=== PATIENT | male | born 1955 | race American Indian/Alaskan Native ===

== ENCOUNTER 2016-10-18 12:30 | Emergency (ER) | payer MEDICAID ==
[2016-10-18 12:56] VITALS: BP 123/78
[2016-10-18 13:15] LABS: Bilirubin,Urine NEG (Negative); Blood,Urine SM (Negative); Ketones,Urine NEG (Negative); Leukocyte Esterase,Urine NEG (Negative); Nitrite,Urine NEG (Negative); Protein,Urine <15 mg/dL mg/dL (Negative)
[2016-10-18 13:28] LABS: Basophils % (Auto) 0.7 % (0.0-1.8); Eosinophils % (Auto) 3.4 % (0.0-4.3); Hematocrit 42.6 % (35.5-45.6); Hemoglobin 14.2 gm/dl (11.8-15.2); Mean Corpuscular HGB Conc 33 % (32-34); Mean Corpuscular Hemoglobin 34 pg (28-32); Mean Corpuscular Volume 104 fl (84-94); Platelet Count 104 K/mm3 (140-440); Red Blood Count 4.11 M/mm3 (3.65-5.03); Red Cell Distribution Width 15.1 % (13.2-15.2); White Blood Count 4.5 K/mm3 (4.5-11.0)
[2016-10-18 13:38] LABS: Alanine Aminotransferase 30 units/L (7-56); Albumin 3.1 g/dL (3.9-5); Albumin/Globulin Ratio 0.6 %; Alkaline Phosphatase 192 units/L (35-129); Anion Gap 15 mmol/L; BUN/Creatinine Ratio 6.66; Bilirubin,Total 2.4 mg/dL (0.1-1.2); Blood Urea Nitrogen 6 mg/dL (9-20); Calcium 8.1 mg/dL (8.4-10.2); Carbon Dioxide 24 mmol/L (22-30); Chloride 98.8 mmol/L (98-107); Glucose 157 mg/dL (75-100); Lipase 49 units/L (13-60); Potassium 4.3 mmol/L (3.6-5.0); Sodium 133 mmol/L (137-145); Total Protein 8.5 g/dL (6.3-8.2)
== END 2016-10-18 16:13 | disposition left against medical advice (07) ==
LOC: ED 12:30
DX: R10.33 Periumbilical pain (principal); F20.9 Schizophrenia, unspecified; Z53.21 Procedure and treatment not carried out due to patient leaving prior to being seen by health care provider
CPT/HCPCS: 36415; 80053; 81001; 83690; 85025

== ENCOUNTER 2016-10-19 11:45 | Emergency (ER) | payer MEDICAID ==
[2016-10-19 12:46] VITALS: BP 143/92
--- NOTE | 2016-10-21 15:07 | ED Elopement Review ---
ED Pt Elopement review - Call Back decision Pt Call Back Decision: No action required
== END 2016-10-19 19:11 | disposition left against medical advice (07) ==
LOC: ED 11:45
DX: R10.9 Unspecified abdominal pain (principal); K46.9 Unspecified abdominal hernia without obstruction or gangrene; K74.60 Unspecified cirrhosis of liver; Z53.21 Procedure and treatment not carried out due to patient leaving prior to being seen by health care provider

== ENCOUNTER 2016-11-25 11:18 | Emergency (ER) | payer MEDICAID ==
[2016-11-25 12:03] VITALS: BP 130/77
--- NOTE | 2016-11-25 12:11 | Emergency Department Report ---
Chief Complaint: Recheck/Abnormal Lab/Rx Stated Complaint: FLUID IN ABD Time Seen by Provider: 11/25/16 12:05 - HPI History of Present Illness: 61-year-old -[place] male with a past medical history of cirrhosis of the liver history of hepatitis C and schizophrenia comes in today for complaint of fluid on my stomach. Patient reports that he feels like his weight has gain and feels bloated. He reports worse with eating. And worse with taking this medication. She denies chest pain or shortness of breathing. - Exam Vital Signs: Vital Signs 11/25/16 11:56 Temperature 98.1 F Pulse Rate 73 Respiratory 18 Rate Blood Pressure 130/77 O2 Sat by Pulse 99 Oximetry Physical Exam: Patient's alert and oriented 3 cardiovascular S1-S2 regular rate and rhythm respiratory clear to osseous bilateral abdomen distended and firm bowel sounds present lower leg no edema appreciated MSE screening note: Focused history and physical exam performed. Due to findings the following was ordered: CBC CMP UAs been ordered. Patient given I with a Main ER ED Disposition for MSE Condition: Stable
[2016-11-25 13:41] LABS: Basophils % (Auto) 0.5 % (0.0-1.8); Eosinophils % (Auto) 4.4 % (0.0-4.3); Hematocrit 44.3 % (35.5-45.6); Hemoglobin 14.5 gm/dl (11.8-15.2); Mean Corpuscular HGB Conc 33 % (32-34); Mean Corpuscular Hemoglobin 34 pg (28-32); Mean Corpuscular Volume 103 fl (84-94); Red Blood Count 4.29 M/mm3 (3.65-5.03); Red Cell Distribution Width 15.5 % (13.2-15.2); White Blood Count 4.3 K/mm3 (4.5-11.0)
[2016-11-25 13:42] LABS: Platelet Count 90 K/mm3 (140-440)
[2016-11-25 14:02] LABS: Alanine Aminotransferase 33 units/L (7-56); Albumin 2.8 g/dL (3.9-5); Albumin/Globulin Ratio 0.5 %; Alkaline Phosphatase 202 units/L (35-129); Anion Gap 13 mmol/L; BUN/Creatinine Ratio 5.55; Bilirubin,Total 2.8 mg/dL (0.1-1.2); Blood Urea Nitrogen 5 mg/dL (9-20); Calcium 8.3 mg/dL (8.4-10.2); Carbon Dioxide 23 mmol/L (22-30); Chloride 102.3 mmol/L (98-107); Glucose 219 mg/dL (75-100); Potassium 4.7 mmol/L (3.6-5.0); Sodium 134 mmol/L (137-145); Total Protein 7.9 g/dL (6.3-8.2)
--- NOTE | 2016-11-27 19:40 | ED Elopement Review ---
ED Pt Elopement review - Results review Lab results: Laboratory Tests 11/25/16 11/25/16 11/25/16 13:28 13:28 13:28 WBC 4.3 L RBC 4.29 Hgb 14.5 Hct 44.3 MCV 103 H MCH 34 H MCHC 33 RDW 15.5 H Plt Count 90 L Lymph % (Auto) 30.1 [place] % (Auto) 13.1 H Eos % (Auto) 4.4 H Baso % (Auto) 0.5 Lymph # 1.3 [place] # 0.6 Eos # 0.2 Baso # 0.0 Seg Neutrophils % 51.9 Seg Neutrophils # 2.2 Sodium 134 L Potassium 4.7 Chloride 102.3 Carbon Dioxide 23 Anion Gap 13 BUN 5 L Creatinine 0.9 Estimated GFR > 60 BUN/Creatinine Ratio 5.55 Glucose 219 H Calcium 8.3 L Total Bilirubin 2.8 H AST 63 H ALT 33 Alkaline Phosphatase 202 H Total Protein 7.9 Albumin 2.8 L Albumin/Globulin Ratio 0.5 Lipase 35 - Call Back decision Pt Call Back Decision: No action required
== END 2016-11-25 20:45 | disposition left against medical advice (07) ==
LOC: ED 11:18
DX: R14.0 Abdominal distension (gaseous) (principal); F20.9 Schizophrenia, unspecified
CPT/HCPCS: 36415; 80053; 83690; 85025

== ENCOUNTER 2017-06-12 16:37 | Inpatient (IN) | payer MEDICAID ==
[2017-06-12 17:33] LABS: Hematocrit 41.4 % (35.5-45.6); Hemoglobin 14.2 gm/dl (11.8-15.2); Mean Corpuscular HGB Conc 34 % (32-34); Mean Corpuscular Hemoglobin 36 pg (28-32); Mean Corpuscular Volume 104 fl (84-94); Red Blood Count 3.97 M/mm3 (3.65-5.03); Red Cell Distribution Width 14.2 % (13.2-15.2); White Blood Count 4.4 K/mm3 (4.5-11.0)
[2017-06-12 17:40] LABS: Anion Gap 14 mmol/L; Blood Urea Nitrogen 7 mg/dL (9-20); Calcium 8.7 mg/dL (8.4-10.2); Carbon Dioxide 25 mmol/L (22-30); Chloride 103.4 mmol/L (98-107); Glucose 105 mg/dL (75-100); Platelet Count 81 K/mm3 (140-440); Potassium 5.3 mmol/L (3.6-5.0); Sodium 137 mmol/L (137-145)
[2017-06-12 18:19] LABS: Basophils % (Manual) 0 % (0.0-1.8); Blastocytes % (Manual) 0 %
[2017-06-12 18:21] LABS: Macrocytosis 1+
[2017-06-12 18:22] LABS: Diff Status Complete; Large Platelets 1+; Platelet Estimate Consistent w Auto
[2017-06-12] MEDS ORDERED: MORPHINE IV ONE (21:30)
[2017-06-12] MEDS ORDERED: ZOFRAN IV ONE (21:30)
--- NOTE | 2017-06-12 21:34 | Emergency Department Report ---
ED Chest Pain HPI - General Chief Complaint: Chest Pain Stated Complaint: CP/BACK PAIN Time Seen by Provider: 06/12/17 20:49 Source: patient, old records reviewed Mode of arrival: Ambulatory Limitations: No Limitations - History of Present Illness Initial Comments: 62-year-old male with a past medical history of cirrhosis, hepatitis C, schizophrenia, chronic umbilical hernia, hypertension, and GERD presents to the hospital complaining of left-sided chest pain that started yesterday but worsened at 3 AM. Pain is at the left jaw and radiates to left upper chest. Described as a constant sharp pain that fluctuates in intensity but worse to palpation. Pain is rated 9/10 in intensity. Denies associated symptoms including nausea, vomiting, diaphoresis, or shortness of breath. Patient denies a family history CAD, tobacco use, or elevated cholesterol. No previous history of stress test in the past. No reports of heavy lifting or straining. Patient also complains of bilateral flank pain and has a chronic umbilical hernia. - Related Data Home Medications Medication Instructions Recorded Confirmed Last Taken Esomeprazole Magnesium [Nexium] 20 mg PO BID 11/26/13 03/23/15 Unknown Nadolol [Corgard] 20 mg PO QDAY 11/26/13 03/23/15 Unknown Previous Rx's Medication Instructions Recorded Last Taken Type Spironolactone [Aldactone] 25 mg PO DAILY #30 tablet 03/23/15 Unknown Rx Allergies Allergy/AdvReac Type Severity Reaction Status Date / Time No Known Allergies Allergy Verified 11/25/16 12:03 Heart Score - HEART Score History: Slightly suspicious EKG: Normal Age: 45-65 Risk factors: 1-2 risk factors Troponin: < normal limit HEART Score: 2 ED Review of Systems ROS: Stated complaint: CP/BACK PAIN Other details as noted in HPI Comment: All other systems reviewed and negative Other: Constitutional: No fevers chills or weight loss Eyes: No eye pain visual changes or discharge ENT: No ear pain or throat pain Neck: Denies pain Respiratory: Denies cough wheezing shortness of breath at rest shortness of breath or exertion, orthopnea or PND Cardiovascular: Denies chest pain, palpitations, syncope Endocrine: Denies excessive sweating, intolerance to cold, increased thirst GI: Denies abdominal pain, nausea, vomiting, diarrhea, constipation, melena hematochezia : Denies dysuria, urinary frequency, or urgency Musculoskeletal: Denies back pain, joint swelling Skin: Denies rash, lesions, erythema Neurologic: Denies headache, numbness, weakness Psychiatric: Denies suicidal ideation, hallucinations Hematological/lymphatic: Denies easy bruising, lymphadenopathy ED Past Medical Hx - Past Medical History Previous Medical History?: Yes Hx Hypertension: Yes Hx GERD: Yes Hx Liver Disease: Yes (cirrhosis, hx of hep C) Hx Psychiatric Treatment: Yes (schizophrenia) Additional medical history: HERNIA - Surgical History Past Surgical History?: Yes Additional Surgical History: Right arm surgery 2013 - Social History Smoking Status: Former Smoker Substance Use Type: Prescribed - Medications Home Medications: Home Medications Medication Instructions Recorded Confirmed Last Taken Type Esomeprazole Magnesium [Nexium] 20 mg PO BID 11/26/13 03/23/15 Unknown History Nadolol [Corgard] 20 mg PO QDAY 11/26/13 03/23/15 Unknown History Spironolactone [Aldactone] 25 mg PO DAILY #30 tablet 03/23/15 Unknown Rx ED Physical Exam - General Limitations: No Limitations - Other Other exam information: General: No limitations, patient is alert in no acute distress Head exam: Atraumatic, normocephalic Eyes exam: Normal appearance, pupils equal reactive to light, extraocular movements intact ENT: Moist mucous membrane, normal oropharynx Neck exam: Normal inspection, full range of motion, no meningismus, mild left- sided sternocleidomastoid tenderness Respiratory exam: Clear to auscultation bilateral, no wheezes, rales, crackles Cardiovascular: Normal rate and rhythm, normal heart sounds, mild left upper chest wall tenderness Abdomen: Soft, nondistended, large reducible umbilical hernia nontender Extremity: Full range of motion normal inspection no deformity, no calf tenderness or edema Back: Normal Inspection, full range of motion, no tenderness Neurologic: Alert, oriented x3, cranial nerves intact, no motor or sensory deficit Psychiatric: normal affect, normal mood Skin: Warm, dry, intact ED Course Vital Signs 06/12/17 06/12/17 16:51 21:00 Temperature 98.6 F Pulse Rate 61 61 Respiratory 18 19 Rate Blood Pressure 146/78 Blood Pressure 139/81 [Left] O2 Sat by Pulse 98 100 Oximetry - Reevaluation(s) Reevaluation #1: 06/12/17 21:49 Morphine and Zofran provided for pain BLANCA score - Blanca Score Age > 65: (0) No Aspirin use within the Past 7 Days: (0) No 3 or more CAD Risk Factors: (1) Yes 2 or more Angina events in past 24 hrs: (0) No Known CAD with more than 50% Stenosis: (0) No Elevated Cardiac Markers: (0) No ST Deviation Greater than 0.5mm: (0) No BLANCA Score: 1 ED Medical Decision Making - Lab Data Result diagrams: 06/12/17 17:04 06/12/17 17:04 Lab Results 06/12/17 06/12/17 06/12/17 Range/Units 17:04 17:04 18:07 WBC 4.4 L (4.5-11.0) K/mm3 RBC 3.97 (3.65-5.03) M/mm3 Hgb 14.2 (11.8-15.2) gm/dl Hct 41.4 (35.5-45.6) % MCV 104 H (84-94) fl MCH 36 H (28-32) pg MCHC 34 (32-34) % RDW 14.2 (13.2-15.2) % Plt Count 81 L (140-440) K/mm3 [place] % (Auto) Calender Worker Helper Add Manual Diff Complete Total Counted 100 Seg Neuts % (Manual) 50.0 (40.0-70.0) % Band Neutrophils % 0 % Lymphocytes % (Manual) 34.0 (13.4-35.0) % Reactive Lymphs % (Man) 0 % Monocytes % (Manual) 9.0 H (0.0-7.3) % Eosinophils % (Manual) 7.0 H (0.0-4.3) % Basophils % (Manual) 0 (0.0-1.8) % Metamyelocytes % 0 % Myelocytes % 0 % Promyelocytes % 0 % Blast Cells % 0 % Nucleated RBC % Not Reportable Seg Neutrophils # Man 2.2 (1.8-7.7) K/mm3 Band Neutrophils # 0.0 K/mm3 Lymphocytes # (Manual) 1.5 (1.2-5.4) K/mm3 Abs React Lymphs (Man) 0.0 K/mm3 Monocytes # (Manual) 0.4 (0.0-0.8) K/mm3 Eosinophils # (Manual) 0.3 (0.0-0.4) K/mm3 Basophils # (Manual) 0.0 (0.0-0.1) K/mm3 Metamyelocytes # 0.0 K/mm3 Myelocytes # 0.0 K/mm3 Promyelocytes # 0.0 K/mm3 Blast Cells # 0.0 K/mm3 WBC Morphology Not Reportable Hypersegmented Neuts Not Reportable Hyposegmented Neuts Not Reportable Hypogranular Neuts Not Reportable Smudge Cells Not Reportable Toxic Granulation Not Reportable Toxic Vacuolation Not Reportable Dohle Bodies Not Reportable Pelger-Huet Anomaly Not Reportable [place] Rods Not Reportable Platelet Estimate Consistent w auto Clumped Platelets Not Reportable Plt Clumps, EDTA Not Reportable Large Platelets 1+ Giant Platelets Not Reportable Platelet Satelliting Not Reportable Plt Morphology Comment Not Reportable RBC Morphology Not Reportable Dimorphic RBCs Not Reportable Polychromasia Not Reportable Hypochromasia Not Reportable Poikilocytosis Not Reportable Anisocytosis Not Reportable Microcytosis Not Reportable Macrocytosis 1+ Spherocytes Not Reportable Pappenheimer Bodies Not Reportable Sickle Cells Not Reportable Target Cells Not Reportable Tear Drop Cells Not Reportable Ovalocytes Not Reportable Helmet Cells Not Reportable Rios-Ririe Bodies Not Reportable [place] Rings Not Reportable [place] Cells Not Reportable Bite Cells Not Reportable Crenated Cell Not Reportable Elliptocytes Not Reportable Acanthocytes (Spur) Not Reportable Rouleaux Not Reportable Hemoglobin C Crystals Not Reportable Schistocytes Not Reportable Malaria parasites Not Reportable Khari Bodies Not Reportable Hem Pathologist Commnt No Sodium 137 (137-145) mmol/L Potassium 5.3 H (3.6-5.0) mmol/L Chloride 103.4 (98-107) mmol/L Carbon Dioxide 25 (22-30) mmol/L Anion Gap 14 mmol/L BUN 7 L (9-20) mg/dL Creatinine 0.7 L (0.8-1.5) mg/dL Estimated GFR > 60 ml/min BUN/Creatinine Ratio 10.00 % Glucose 105 H (75-100) mg/dL Calcium 8.7 (8.4-10.2) mg/dL Troponin T < 0.010 < 0.010 (0.00-0.029) ng/mL - EKG Data -: EKG Interpreted by Pr (sinus rate [address] elevation or T inversion) - EKG Data When compared to previous EKG there are: no significant change - Medical Decision Making Plan to admit patient to the hospital for cardiac workup suspect her pain is musculoskeletal origin. Patient has never had any formal cardiac evaluation. - Differential Diagnosis MSK chest pain, ID, unstable angina Critical Care Time: No Critical care attestation.: If time is entered above; I have spent that time in minutes in the direct care of this critically ill patient, excluding procedure time. ED Disposition Clinical Impression: Chest pain, Umbilical hernia, HTN (hypertension), Cirrhosis, Schizophrenia, Thrombocytopenia Disposition: DC09 OP ADMIT IP TO THIS HOSP Is pt being admited?: Yes Condition: Stable Time of Disposition: 21:34
[2017-06-12] MEDS ORDERED: KIONEX PO ONE ×2 (21:48→22:08)
[2017-06-12] MEDS ORDERED: ZOFRAN IV PRN (22:09)
[2017-06-12] MEDS ORDERED: TYLENOL PO PRN (22:09)
[2017-06-12] MEDS ORDERED: MILK OF MAGNESIA PO PRN (22:09)
[2017-06-12] MEDS ORDERED: DULCOLAX PR PRN (22:09)
[2017-06-12 22:11] LABS: INR 1.49 (0.87-1.13)
[2017-06-12] MEDS ORDERED: SODIUM CHLORIDE FLUSH SYRINGE 10 ML IV PRN (22:11)
[2017-06-12] MEDS ORDERED: BABY ASPIRIN PO STA (22:11)
[2017-06-12] MEDS ORDERED: NITROSTAT SL PRN (22:11)
--- NOTE | 2017-06-12 22:11 | History and Physical Report ---
History of Present Illness Date of examination: 06/12/17 Date of admission: 06/12/17 Chief complaint: Chest pain History of present illness: Patient is 60-year-old with history of hypertension, cirrhosis of the liver due to hepatitis C, schizophrenia. He presents with chest pain. Chest pain for 1 day duration. Chest pain is left-sided, 9 out of 10 in intensity. Chest pain is a sharp pain radiates to neck. He denies any shortness of breath. No headache, no nausea, or vomiting. In emergency department initial troponin was normal and patient was given aspirin. In addition he had hyperkalemia with a potassium of 5.3. For this he was given Kayexalate. He is being admitted to telemetry for management of hyperkalemia and to rule out acute coronary syndrome . Past History Past Medical History: GERD, hepatitis (hepatitis C), hypertension, other ( cirrhosis of the liver due to hepatitis C, schizophrenia, umbilical hernia) Past Surgical History: Other (right arm surgery) Social history: single, full code. denies: smoking, alcohol abuse Family history: hypertension Medications and Allergies Allergies Allergy/AdvReac Type Severity Reaction Status Date / Time No Known Allergies Allergy Verified 11/25/16 12:03 Home Medications Medication Instructions Recorded Confirmed Last Taken Type Esomeprazole Magnesium [Nexium] 20 mg PO BID 11/26/13 03/23/15 Unknown History Nadolol [Corgard] 20 mg PO QDAY 11/26/13 03/23/15 Unknown History Spironolactone [Aldactone] 25 mg PO DAILY #30 tablet 03/23/15 Unknown Rx Active Meds: Active Medications Acetaminophen (Tylenol) 650 mg PO Q4H PRN PRN Reason: Pain MILD(1-3)/Fever >100.5/TAYLOR Bisacodyl (Dulcolax) 10 mg SD QDAY PRN PRN Reason: Constipation unrelieved by MOM Heparin Sodium (Porcine) (Heparin) 5,000 unit SUB-Q Q8HR KYLAH Magnesium Hydroxide (Milk Of Magnesia) 30 ml PO Q4H PRN PRN Reason: Constipation Ondansetron HCl (Zofran) 4 mg IV Q6H PRN PRN Reason: nausea or vomiting Review of Systems All systems: negative (no fever, no cough, no headache, no nausea,no vomiting. All other systems reviewed and are negative) Exam - Physical Exam Narrative exam: Gen Appearance: Not in acute distress,obese HEENT: normocephalic, atraumatic Neck: supple, no JVD Lungs: Clear to auscultation, bilaterally, no rales, no wheeze Heart: S1 and S2 regular, no murmurs,no rubs or gallop, Abdomen: Soft , non tender, non distended, normal bowel sounds,large umbilical hernia - reducible. Extremity: No edema, no clubbing or cyanosis, Neuro : Awake,alert, oriented x 3, moves all extremities - Constitutional Vitals: Temp Pulse Resp BP Pulse Ox 98.6 F 61 19 139/81 100 06/12/17 16:51 06/12/17 21:00 06/12/17 21:54 06/12/17 21:00 06/12/17 21:00 Results - Labs CBC & Chem 7: 06/12/17 17:04 06/12/17 17:04 Labs: Abnormal lab results 06/12/17 06/12/17 06/12/17 Range/Units 17:04 17:04 21:47 WBC 4.4 L (4.5-11.0) K/mm3 MCV 104 H (84-94) fl MCH 36 H (28-32) pg Plt Count 81 L (140-440) K/mm3 Monocytes % (Manual) 9.0 H (0.0-7.3) % Eosinophils % (Manual) 7.0 H (0.0-4.3) % PT 18.8 H (12.2-14.9) Sec. INR 1.49 H (0.87-1.13) Potassium 5.3 H (3.6-5.0) mmol/L BUN 7 L (9-20) mg/dL Creatinine 0.7 L (0.8-1.5) mg/dL Glucose 105 H (75-100) mg/dL Assessment and Plan Chest pain. To rule out acute coronary syndrome. Admit to telemetry. Obtain Serial Troponin . Will obtain stress test in the morning. Aspirin given in ED. Hyperkalemia with potassium of 5.3. Give Kayexalate 30 g by mouth 1 dose and recheck potassium level in the morning. He is supposed to be on Aldactone states he has not taken his medications in about 3 months. hold Aldactone because of hyperkalemia Cirrhosis of liver due to Hepatitis C. Hold Nadolol because of bradycardia. Abnormal LFTs. Hepatitis C, chronic. Coagulopathy with INR 1.49 due to cirrhosis of liver. Hypertension. BP stable. will monitor. GERD . give Protonix. Shizophrenia Chronic umbilical hernia. This is reducible. DVT prophylaxis with SCDs only because of thrombocytopenia. Thrombocytopenia due to cirrhosis. Plty count 81. Will monitor. Full CODE STATUS
[2017-06-12 22:12] LABS: Partial Thromboplastin Time 38.3 Sec. (24.2-36.6)
[2017-06-12 22:25] LABS: Alanine Aminotransferase 46 units/L (7-56); Albumin 2.8 g/dL (3.9-5); Albumin/Globulin Ratio 0.7 %; Alkaline Phosphatase 193 units/L (35-129); Bilirubin,Direct 0.7 mg/dL (0-0.2); Total Protein 7.1 g/dL (6.3-8.2)
[2017-06-12] MEDS ORDERED: ASPIRIN ONE (22:52)
[2017-06-12] MEDS ORDERED: KIONEX ONE (22:52)
[2017-06-12] MEDS ORDERED: BABY ASPIRIN ONE (22:55)
[2017-06-12] MEDS ORDERED: PROTONIX PO SCH (23:00)
[2017-06-13] MEDS ORDERED: HEPARIN SUB-Q SCH (06:00)
[2017-06-13 06:51] LABS: Basophils % (Auto) 0.5 % (0.0-1.8); Eosinophils % (Auto) 2.4 % (0.0-4.3); Hematocrit 40.7 % (35.5-45.6); Hemoglobin 13.8 gm/dl (11.8-15.2); Mean Corpuscular HGB Conc 34 % (32-34); Mean Corpuscular Hemoglobin 35 pg (28-32); Mean Corpuscular Volume 105 fl (84-94); Red Blood Count 3.89 M/mm3 (3.65-5.03); White Blood Count 3.9 K/mm3 (4.5-11.0)
[2017-06-13 06:57] LABS: Platelet Count 71 K/mm3 (140-440)
[2017-06-13 07:15] LABS: Anion Gap 14 mmol/L; BUN/Creatinine Ratio 8.57; Blood Urea Nitrogen 6 mg/dL (9-20); Calcium 8.1 mg/dL (8.4-10.2); Carbon Dioxide 24 mmol/L (22-30); Chloride 106.6 mmol/L (98-107); Glucose 117 mg/dL (75-100); Potassium 4.5 mmol/L (3.6-5.0); Sodium 140 mmol/L (137-145)
--- NOTE | 2017-06-13 08:30 | XRay Report ---
FINAL REPORT EXAM: XR CHEST 1V AP HISTORY: cp TECHNIQUE: AP portable view(s) of the chest obtained. PRIORS: None. FINDINGS: No mediastinal shift. Cardiac silhouette is not enlarged. No pneumothorax, effusion, or focal pulmonary opacity identified. No acute skeletal findings. IMPRESSION: No acute pulmonary finding identified.
[2017-06-13] MEDS ORDERED: ECOTRIN PO SCH (10:00)
[2017-06-13] MEDS ORDERED: PROTONIX PO SCH (10:00)
--- NOTE | 2017-06-13 11:12 | Query- Nutrition ---
Tyrese Corral Wise Date:___06/13/2017 Balance Wheel Motion Inspector/CDS:___Roxie Phone#:___[phone] Exercise your independent professional judgment when responding to query. Questions asked do not imply a particular answer is desired or expected. We greatly appreciate your clarification on this issue. Clinical Documentation States: 62 Year old male was admitted on 06/12/2017 with chest pain. Clinical Findings Show: Albumin: 2.8 Please select the most appropriate option 3 [] Mild Malnutrition [] Mild - Moderate Malnutrition [x] Moderate - Severe Malnutrition [] Severe Malnutrition Serum Albumin 2.8 to 3.4 g/dl or Pre-albumin 5 to 17 mg/dl1,2 Inadequate nutritional intake1,2,3,4 NPO > 5 days Weight loss: 5% in 1 month or 7.5% in 3 months or 10% in 6 months1, 3,4 BMI 16 to 18.4 or Weight <90% of ideal body weight1,2,3,4 Serum Albumin < 2.8 g/ dl1,2 Lymphocytes < 1500/ L2 Inadequate nutritional intake3, high stress e.g. major trauma, sepsis,pancreatitis, clements etc. Decubitus ulcers1,2, , skin breakdown2, easy hair pluckability2 Weight <80% standard for height2 Triceps skin fold <3 mm2 Mid-arm muscle circumference <15 cm2 Creatinine-height index <60% standard2 [ ] Cachexia [ ] Emaciated w/Malnutrition [ ] Other: [ ] Unable to determine [ ] Comment/Explanation: Present on Admission: [x ] Yes (Y) [ ] Clinically undeterminable (W) [ ] No (N) Please also document response in your Progress Notes and/or Discharge Summary and indicate if the condition was present on admission. MTDD
[2017-06-13] MEDS ORDERED: LEXISCAN IV ONE (11:36)
[2017-06-13 14:18] VITALS: BP 130/78
--- NOTE | 2017-06-13 15:43 | Discharge Summary ---
Providers - Providers Date of Admission: 06/12/17 22:09 Date of discharge: 06/13/17 Attending physician: SLOAN GONZALEZ 06/12/17 Consult to Cardiac Rehabilitation [CONS] Routine Reason For Exam: Phase I Primary care physician: SENIOR CARE MANAGER Hospitalization Condition: Stable Hospital course: Patient is a 62-year-old man with a history of hypertension, hepatitis with cirrhosis and schizophrenia who presents with chest pain without shortness of breath. Chest pain due to msk strain/costochondrits if stress test is negative Hyperkalemia with potassium of 5.3. Give Kayexalate 30 g by mouth 1 dose and recheck potassium level in the morning. He is supposed to be on Aldactone states he has not taken his medications in about 3 months. hold Aldactone because of hyperkalemia Cirrhosis of liver due to Hepatitis C. Hold Nadolol because of bradycardia. Abnormal LFTs. Hepatitis C, chronic. Coagulopathy with INR 1.49 due to cirrhosis of liver. Hypertension. BP stable. will monitor. GERD . give Protonix. Shizophrenia Chronic umbilical hernia. This is reducible. DVT prophylaxis with SCDs only because of thrombocytopenia. Thrombocytopenia due to cirrhosis. Plty count 81. Will monitor. Full CODE STATUS Disposition: DC-01 TO HOME OR SELFCARE Time spent for discharge: 32 min Core Measure Documentation - Palliative Care Palliative Care/ Comfort Measures: Not Applicable - Core Measures Any of the following diagnoses?: none - VTE Discharge Requirements Deep Vein Thrombosis/Pulmonary Embolism Present on Admission: No Has pt received <5 days of overlap therapy or INR<2.0: No Anticoagulant overlap therapy prescribed at discharge: No Contraindication No Overlap Therapy order at DC: Not Indicated Exam - Physical Exam Narrative exam: GEN: WDWN, NAD, AWAKE, ALERT, ORIENTATED 3 HEENT: NCAT, EOMI, PERRL, OP Clear NECK: supple, no adenopathy, no thyromegaly, no JVD CVS/HEART: RRR, NORMAL S1S2, NO JVD, pulses present bilaterally CHEST/LUNGS: CTA B, Symmetrical chest expansion, good air entry bilaterally, reproducible left-sided chest wall tenderness is mild GI/Abdomen: soft, NTND, good bowel sounds, no guarding or rebound /Bladder: no suprapubic tenderness, no CVA or paraspinal tenderness EXT/Skin: no c/c/e, no significant edema or obvious rash MSK: FROM x 4 Neuro: CN 2-12 grossly intact, no new focal deficits Psych: calm - Constitutional Vitals: Temp Pulse Resp BP Pulse Ox 98.3 F 58 L 18 130/78 98 06/13/17 13:00 06/13/17 13:00 06/13/17 13:00 06/13/17 13:00 06/13/17 13:00 Plan Activity: other (no strenous activity until cleared by pcp) Diet: low salt Follow up with: PRIMARY CAREMD [Primary Care Provider] - 3-5 Days
== END 2017-06-13 17:36 | disposition home or self-care (01) | DRG 205 ==
LOC: ED 16:37 → 4A 22:09
PROVIDERS: ADMIT Internal Medicine; ATTEND Internal Medicine
DX: M94.0 Chondrocostal junction syndrome [Tietze] (principal); E43 Unspecified severe protein-calorie malnutrition; D68.9 Coagulation defect, unspecified; E87.5 Hyperkalemia; K74.60 Unspecified cirrhosis of liver; B18.2 Chronic viral hepatitis C; I10 Essential (primary) hypertension; K21.9 Gastro-esophageal reflux disease without esophagitis; F20.9 Schizophrenia, unspecified; K42.9 Umbilical hernia without obstruction or gangrene; D69.6 Thrombocytopenia, unspecified; Z82.49 Family history of ischemic heart disease and other diseases of the circulatory system; Z68.33 Body mass index [BMI] 33.0-33.9, adult
CPT/HCPCS: 36415; 71010; 78452; 80048; 80074; 84484; 85007; 85025; 85610; 85730; 93005; 93010; 93017; 96374; 96375; A9502; J2270; J2405; J2785

== ENCOUNTER 2017-07-22 22:57 | Emergency (ER) | payer MEDICAID ==
[2017-07-22 23:58] LABS: Alanine Aminotransferase 45 units/L (7-56); Albumin/Globulin Ratio 0.6 %; Alkaline Phosphatase 130 units/L (35-129); Anion Gap 16 mmol/L; BUN/Creatinine Ratio 8; Blood Urea Nitrogen 8 mg/dL (9-20); Calcium 8.9 mg/dL (8.4-10.2); Carbon Dioxide 24 mmol/L (22-30); Glucose 95 mg/dL (75-100); Lipase 51 units/L (13-60); Potassium 4.4 mmol/L (3.6-5.0); Sodium 133 mmol/L (137-145); Total Protein 8.1 g/dL (6.3-8.2)
[2017-07-23] LABS: Basophils % (Auto) 0.3 % (0.0-1.8); Eosinophils % (Auto) 0.3 % (0.0-4.3); Hematocrit 43.7 % (35.5-45.6); Hemoglobin 15.1 gm/dl (11.8-15.2); Mean Corpuscular HGB Conc 35 % (32-34); Mean Corpuscular Hemoglobin 36 pg (28-32); Mean Corpuscular Volume 105 fl (84-94); Red Blood Count 4.17 M/mm3 (3.65-5.03); Red Cell Distribution Width 13.9 % (13.2-15.2); White Blood Count 12.6 K/mm3 (4.5-11.0)
[2017-07-23 00:01] LABS: Platelet Count 78 K/mm3 (140-440)
[2017-07-23 02:50] LABS: Bilirubin,Urine SM (Negative); Blood,Urine NEG (Negative); Ketones,Urine NEG (Negative); Leukocyte Esterase,Urine NEG (Negative); Mucus,Urine 3+ /HPF; Nitrite,Urine NEG (Negative)
[2017-07-23] MEDS ORDERED: CARAFATE PO ONE (09:25)
[2017-07-23] MEDS ORDERED: ALUM-MAG HYDROX-SIMETH 200-200-20MG/5ML PO ONE (09:25)
--- NOTE | 2017-07-23 10:24 | Cat Scan Report ---
CT HEAD WITHOUT CONTRAST: 07/22/17 22:57:00 CLINICAL: Headache. TECHNIQUE: 2.5-mm noncontrast scans. COMPARISON:None FINDINGS: The ventricles are normal size. Moderate bilateral frontal and temporal sulcal enlargement. A chronic left pontine lacunar infarct. No mass or mass effect. No hemorrhage, edema or extra-axial collection. The sinuses are clear. Normal orbits and soft tissues. The calvarium and skull base are intact. IMPRESSION: Cortical atrophy and a chronic left pontine lacunar infarct. No acute change.
--- NOTE | 2017-07-23 10:35 | Cat Scan Report ---
CT ABDOMEN AND PELVIS WITHOUT CONTRAST: 07/22/17 22:57:00 CLINICAL:Abdominal pain. History of hepatitis and cirrhosis. COMPARISON: 10/02/14 TECHNIQUE: Volumetric acquisition and 1.25 millimeter scan reconstructions from the lung bases through the pelvis. The study was performed without oral contrast. FINDINGS: Abdomen: Clear lung bases. The liver is atrophic with surface nodularity and no obvious liver mass. The gallbladder is contracted with a thick wall. No cholelithiasis. The bile ducts are normal. No evidence of portal venous thrombosis. Gastric and splenic varices and numerous portosystemic collaterals throughout the abdomen. The spleen is mildly enlarged and measures 12.5 cm in maximum dimension. Mild ascites. Aside from varices, the stomach is normal. Normal duodenum and pancreas. Multiple enlarged henri hepatis lymph nodes. The largest measures 3.6 x 2.4 cm. A large umbilical hernia contains omentum. A ventral abdominal wall defect at the umbilicus measures approximately 3.9 cm in herniated omentum measures approximately 9.7 x 9.3 x 6.7 cm. No bowel is identified within the hernia. The small bowel and colon are normal. The appendix is well imaged and normal. Normal adrenal glands and kidneys. The renal collecting systems and ureters are nondilated. Pelvis: Normal urinary bladder, prostate and rectum.Normal sigmoid colon. Bone windows demonstrate no suspicious bone lesion. L5-S1 degenerative disc disease with narrowing of the disc space and vacuum disc phenomenon. IMPRESSION: 1. Cirrhosis of the liver and portal hypertension with gastric and splenic varices along with numerous additional henri systemic collaterals throughout the upper abdomen. 2. No evidence of portal venous thrombosis. 3. An umbilical hernia contains a relatively large portion of the omentum and the neck of the hernia is relatively small compared to the volume of omentum in the hernia. This may be symptomatic.
--- NOTE | 2017-07-23 12:10 | Emergency Department Report ---
ED General Adult HPI - General Chief complaint: Abdominal Pain Stated complaint: GENERAL WEAKNESS, HEADACHE Time Seen by Provider: 07/23/17 09:13 Source: patient, RN notes reviewed, old records reviewed Mode of arrival: Ambulatory Limitations: Other (the patient is a poor historian) - History of Present Illness Initial comments: This is a 62-year-old male. Past medical history includes hypertension, cirrhosis, hepatitis C, schizophrenia, large umbilical hernia. The patient presents to the ER with multiple complaints. First complaint is abdominal pain. Abdominal pain has resolved. He described it as a sensation of "my liver is jumping." He stated this happened yesterday. It has since resolved. It did not radiate anywhere. It had no exacerbating or relieving factors. Patient next complaint is dizziness. He cannot further describe this. Patient reports that he has not passed out. He reports no loss of consciousness, and he denies ataxia. As per EMS documentation, patient indicated that he was feeling weak and having a headache. The headache as per the patient is not sign or thunderclap in nature, has been present for days, it did not reach maximal intensity within an hour. He describes it as throbbing and aching. It has no exacerbating or relieving factors. It does not radiate anywhere. -: Gradual, hour(s) Location: head, abdomen Severity scale (0 -10): 0 Consistency: now resolved Improves with: none Worsens with: none Associated Symptoms: headaches. denies: confusion, chest pain - Related Data Home Medications Medication Instructions Recorded Confirmed Last Taken Esomeprazole Magnesium [NexIUM] 20 mg PO BID 11/26/13 06/13/17 1 Day Ago Nadolol [Corgard] 20 mg PO QDAY 11/26/13 06/13/17 1 Day Ago Previous Rx's Medication Instructions Recorded Last Taken Type Spironolactone [Aldactone] 25 mg PO DAILY #30 tablet 03/23/15 1 Day Ago Rx Allergies Allergy/AdvReac Type Severity Reaction Status Date / Time No Known Allergies Allergy Verified 11/25/16 12:03 ED Review of Systems ROS: Stated complaint: GENERAL WEAKNESS, HEADACHE Other details as noted in HPI Constitutional: malaise Eyes: denies: eye discharge Respiratory: denies: cough Cardiovascular: denies: chest pain Gastrointestinal: abdominal pain Genitourinary: denies: dysuria Musculoskeletal: denies: back pain Neurological: headache Psychiatric: denies: homicidal thoughts, suicidal thoughts ED Past Medical Hx - Past Medical History Hx Hypertension: Yes Hx Congestive Heart Failure: No Hx Diabetes: No Hx GERD: Yes Hx Liver Disease: Yes (cirrhosis, hx of hep C) Hx Psychiatric Treatment: Yes (schizophrenia) Hx Asthma: No Hx COPD: No Additional medical history: HERNIA - Surgical History Additional Surgical History: Right arm surgery 2013 - Social History Smoking Status: Never Smoker Substance Use Type: None - Medications Home Medications: Home Medications Medication Instructions Recorded Confirmed Last Taken Type Esomeprazole Magnesium [NexIUM] 20 mg PO BID 11/26/13 06/13/17 1 Day Ago History Nadolol [Corgard] 20 mg PO QDAY 11/26/13 06/13/17 1 Day Ago History Spironolactone [Aldactone] 25 mg PO DAILY #30 tablet 03/23/15 06/13/17 1 Day Ago Rx ED Physical Exam - General Limitations: No Limitations General appearance: alert, in no apparent distress - Head Head exam: Present: atraumatic, normocephalic - Eye Eye exam: Present: normal appearance, PERRL, EOMI, other (visual acuity intact to finger counting, color perception, reading at a close distance). Absent: nystagmus - ENT ENT exam: Present: normal exam, normal orophraynx, mucous membranes moist, TM's normal bilaterally, normal external ear exam, other (negative nasal septal hematoma. Negative hemotympanum) - Neck Neck exam: Present: normal inspection, full ROM - Respiratory Respiratory exam: Present: normal lung sounds bilaterally. Absent: respiratory distress, chest wall tenderness - Cardiovascular Cardiovascular Exam: Present: regular rate, normal rhythm, normal heart sounds. Absent: systolic murmur, diastolic murmur, rubs, gallop - GI/Abdominal GI/Abdominal exam: Present: soft, normal bowel sounds, hernia (there is large midline ventral hernia, which is nonreducible. This is chronic.). Absent: distended, tenderness, guarding, rebound, rigid, pulsatile mass - Rectal Rectal exam: Present: deferred - Extremities Exam Extremities exam: Present: normal inspection, full ROM, normal capillary refill. Absent: calf tenderness - Back Exam Back exam: Present: normal inspection, full ROM. Absent: paraspinal tenderness , vertebral tenderness - Neurological Exam Neurological exam: Present: alert (visual acuity is intact to direct confrontation bilaterally.visual acuity intact to finger counting, color perception, reading at a close distance), oriented X3, normal gait (normal gait , normal tandem gait, negative pass pointing, negative pronator drift, negative Romberg examination), other (Extraocular movements intact. Tongue midline. No facial droop. Facial sensation intact to light touch in the V1, V2, V3 distribution bilaterally. 5 and 5 strength in 4 extremities.. Sensation is intact to light touch in 4 extremities.). Absent: motor sensory deficit - Psychiatric Psychiatric exam: Present: normal affect, normal mood - Skin Skin exam: Present: warm, dry, intact, normal color. Absent: rash ED Course Vital Signs 07/22/17 07/23/17 07/23/17 23:06 04:03 07:07 Temperature 97.6 F Pulse Rate 60 65 Respiratory 16 18 16 Rate Blood Pressure 118/71 116/71 Blood Pressure [Left] O2 Sat by Pulse 96 100 100 Oximetry 07/23/17 07/23/17 07/23/17 07:12 08:09 10:37 Temperature 97.9 F Pulse Rate 60 64 83 Respiratory 16 17 Rate Blood Pressure Blood Pressure 108/56 109/64 116/80 [Left] O2 Sat by Pulse 100 100 Oximetry 07/23/17 07/23/17 07/23/17 12:09 12:11 12:13 Temperature Pulse Rate Respiratory Rate Blood Pressure 116/64 116/64 116/64 Blood Pressure [Left] O2 Sat by Pulse 98 98 99 Oximetry 07/23/17 07/23/17 07/23/17 12:15 12:16 12:22 Temperature 98.7 F Pulse Rate Respiratory 17 Rate Blood Pressure 116/64 130/75 Blood Pressure [Left] O2 Sat by Pulse 98 100 98 Oximetry ED Medical Decision Making - Lab Data Result diagrams: 07/22/17 23:21 07/22/17 23:21 Vital Signs 07/22/17 07/23/17 07/23/17 23:06 04:03 07:07 Temperature 97.6 F Pulse Rate 60 65 Respiratory 16 18 16 Rate Blood Pressure 118/71 116/71 Blood Pressure [Left] O2 Sat by Pulse 96 100 100 Oximetry 07/23/17 07/23/17 07/23/17 07:12 08:09 10:37 Temperature 97.9 F Pulse Rate 60 64 83 Respiratory 16 17 Rate Blood Pressure Blood Pressure 108/56 109/64 116/80 [Left] O2 Sat by Pulse 100 100 Oximetry Lab Results 07/22/17 07/22/17 07/23/17 Range/Units 23:21 23:21 01:41 WBC 12.6 H (4.5-11.0) K/mm3 RBC 4.17 (3.65-5.03) M/mm3 Hgb 15.1 (11.8-15.2) gm/dl Hct 43.7 (35.5-45.6) % MCV 105 H (84-94) fl MCH 36 H (28-32) pg MCHC 35 H (32-34) % RDW 13.9 (13.2-15.2) % Plt Count 78 L (140-440) K/mm3 Lymph % (Auto) 15.9 (13.4-35.0) % Gove % (Auto) 12.2 H (0.0-7.3) % Eos % (Auto) 0.3 (0.0-4.3) % Baso % (Auto) 0.3 (0.0-1.8) % Lymph # 2.0 (1.2-5.4) K/mm3 Gove # 1.5 H (0.0-0.8) K/mm3 Eos # 0.0 (0.0-0.4) K/mm3 Baso # 0.0 (0.0-0.1) K/mm3 Seg Neutrophils % 71.3 H (40.0-70.0) % Seg Neutrophils # 9.0 H (1.8-7.7) K/mm3 Sodium 133 L (137-145) mmol/L Potassium 4.4 (3.6-5.0) mmol/L Chloride 97.0 L (98-107) mmol/L Carbon Dioxide 24 (22-30) mmol/L Anion Gap 16 mmol/L BUN 8 L (9-20) mg/dL Creatinine 1.0 (0.8-1.5) mg/dL Estimated GFR > 60 ml/min BUN/Creatinine Ratio 8 % Glucose 95 (75-100) mg/dL Calcium 8.9 (8.4-10.2) mg/dL Total Bilirubin 4.40 H (0.1-1.2) mg/dL AST 67 H (5-40) units/L ALT 45 (7-56) units/L Alkaline Phosphatase 130 H (35-129) units/L Total Protein 8.1 (6.3-8.2) g/dL Albumin 3.0 L (3.9-5) g/dL Albumin/Globulin Ratio 0.6 % Lipase 51 (13-60) units/L Urine Color Staci (Yellow) Urine Turbidity Clear (Clear) Urine pH 5.0 (5.0-7.0) Ur Specific [place] 1.028 (1.003-1.030) Urine Protein 30 mg/dl (Negative) mg/dL Urine Glucose (UA) Neg (Negative) mg/dL Urine Ketones Neg (Negative) mg/dL Urine Blood Neg (Negative) Urine Nitrite Neg (Negative) Urine Bilirubin Sm (Negative) Urine Ictotest Positive (Negative) Urine Urobilinogen 4.0 (<2.0) mg/dL Ur Leukocyte Esterase Neg (Negative) Urine WBC (Auto) 6.0 (0.0-6.0) /HPF Urine RBC (Auto) 5.0 (0.0-6.0) /HPF U Epithel Cells (Auto) 1.0 (0-13.0) /HPF Hyaline Casts 7 /LPF Urine Mucus 3+ /HPF - EKG Data -: EKG Interpreted by Me - Radiology Data Radiology results: report reviewed, image reviewed Noncontrast CT scan of the brain is negative for acute findings. Chronic findings are noted. Noncontrast CT scan of the abdomen and pelvis demonstrates numerous chronic findings. No acute findings are noted. - Medical Decision Making Differential diagnosis, including but not limited to: Intracranial hemorrhage, migraine headache, tension headache, cluster headache, ascites, renal colic, pneumonia, obstruction, constipation, chronic hernia, schizophrenia Assessment and plan: [id number] male with multiple nonspecific complaints. Objectively speaking he is afebrile with reassuring vital signs, clinically sober, walks with a steady gait, has a normal neurologic examination, his objective imaging studies do not demonstrate any emergent pathology at this time , patient observed in the ER for hours without clinical decompensation, he was treated with symptomatically medication for his abdominal pain, and had an uneventful course in the ER. He is not homicidal or suicidal, he is currently sober, and does not require 1013, there does not appear to be any emergent condition at this time, the patient is suitable to follow up with an outpatient primary care doctor for further evaluation and management. Critical care attestation.: If time is entered above; I have spent that time in minutes in the direct care of this critically ill patient, excluding procedure time. ED Disposition Clinical Impression: Umbilical hernia, Schizophrenia, Cirrhosis Disposition: DC- TO HOME OR SELFCARE Is pt being admited?: No Does the pt Need Aspirin: No Condition: Stable Additional Instructions: Continue current outpatient medications. Follow up with your primary care doctor or cook chef within the next month. Return to the ER right away with new pain, worsened pain, migration of pain, fevers, chills, lethargy, irritability, projectile vomiting, change in mental status, inability to tolerate liquid feeds. Referrals: ROXANE PULIDO MD [Primary Care Provider] - 3-5 Days ANI MANRIQUE MD [Staff Physician] - 3-5 Days
[2017-07-23 12:22] VITALS: BP 130/75
== END 2017-07-23 12:23 | disposition home or self-care (01) ==
LOC: ED 22:57
DX: K42.9 Umbilical hernia without obstruction or gangrene (principal); K74.60 Unspecified cirrhosis of liver; F20.9 Schizophrenia, unspecified; I10 Essential (primary) hypertension; K21.9 Gastro-esophageal reflux disease without esophagitis
CPT/HCPCS: 36415; 70450; 74176; 80053; 81001; 83690; 85025; 93005; 93010

== ENCOUNTER 2017-09-12 12:24 | Emergency (ER) | payer MEDICAID ==
[2017-09-12 12:55] VITALS: BP 157/91
[2017-09-12] MEDS ORDERED: TRIMOX PO ONE (15:28)
[2017-09-12] MEDS ORDERED: DECADRON IM ONE (15:28)
--- NOTE | 2017-09-12 15:33 | Emergency Department Report ---
Minor Respiratory - HPI Chief Complaint: Upper Respiratory Infection Stated Complaint: sore throat Time Seen by Provider: 09/12/17 15:13 Pain Location: Throat Severity: moderate Minor Respiratory: Yes Sore Throat, Yes Able to Tolerate Fluids, No Rhinorrhea, No Ear Pain, No Cough, No Sick Contacts, No Hemoptysis, No Chest Pain, No Shortness of Breath, No Fever Other History: pna shot last month. care at [facility] for liver. was at [facility] 3 w ago had xray chest wnl. [facility] ED Review of Systems ROS: Stated complaint: FLU LIKE SYMPTOMS Other details as noted in HPI Comment: NO CP NO SOB NO ABD PAIN NO COUGH NO FEVER; ONLY SORE THROAT ENT: throat pain ED Past Medical Hx - Past Medical History Hx Hypertension: Yes Hx Congestive Heart Failure: No Hx Diabetes: No Hx GERD: Yes Hx Liver Disease: Yes (cirrhosis, hx of hep C) Hx Psychiatric Treatment: Yes (schizophrenia) Hx Asthma: No Hx COPD: No Additional medical history: HERNIA - Surgical History Past Surgical History?: Yes Additional Surgical History: Right arm surgery 2013 - Social History Smoking Status: Never Smoker Substance Use Type: None - Medications Home Medications: Home Medications Medication Instructions Recorded Confirmed Last Taken Type Esomeprazole Magnesium [NexIUM] 20 mg PO BID 11/26/13 06/13/17 1 Day Ago History ~06/12/17 Nadolol [Corgard] 20 mg PO QDAY 11/26/13 06/13/17 1 Day Ago History ~06/12/17 Spironolactone [Aldactone] 25 mg PO DAILY #30 tablet 03/23/15 06/13/17 1 Day Ago Rx ~06/12/17 Amoxicillin 500 mg PO BID #20 capsule 09/12/17 Unknown Rx Fluticasone [Flonase] 1 spray NS QDAY #1 bottle 09/12/17 Unknown Rx Minor Respiratory Exam - Exam General: Vital signs noted. No distress. Alert and acting appropriately. HEENT: Yes Pharyngeal Erythema, Yes Moist Mucous Membranes, No Pharyngeal Exudates, No Rhinorrhea, No Conjuctival Injection, No Frontal Tenderness, No Maxillary Tenderness Ear: Neither TM Bulge, Neither TM Erythema, Neither EAC Pain, Neither EAC Discharge Neck: Yes Supple, No Adenopathy Lungs: Yes Good Air Exchange, No Wheezes, No Ronchi, No Stridor, No Cough, No Labored Respirations, No Retractions, No Use of Accessory Muscles, No Other Abnormal Lung Sounds Heart: Yes Regular, No Murmur Abdomen: Yes Normal Bowel Sounds, No Tenderness, No Peritoneal Signs Skin: No Rash, No Edema Neurologic: Alert and oriented, no deficits. Musculoskeletal: Unremarkable. ED Course Vital Signs 09/12/17 12:51 Temperature 98.7 F Pulse Rate 61 Respiratory 18 Rate Blood Pressure 157/91 O2 Sat by Pulse 99 Oximetry - Reevaluation(s) Reevaluation #1: 09/12/17 15:59 TO ER W SEVERAL WEEK HX OF SORE THROAT HE [facility] FOR LIVING NO FEVER NO COUGH SEES [place] [facility] TEAM FOR HEP C /CIRRHOSIS HE IS NON ILL NON TOXIC APPEARING NAD NO FEVER TAKING PO AMBULATORY JOVIAL NO SOB NO CP NO EDEMA OR JVD THROAT RED ON EXAM NO SINUS TENDERNESS LUNGS CTA MEDICATED WILL DC HOME W DC POC ED Medical Decision Making - Medical Decision Making SEE NOTE - Differential Diagnosis URTI Critical care attestation.: If time is entered above; I have spent that time in minutes in the direct care of this critically ill patient, excluding procedure time. ED Disposition Clinical Impression: Pharyngitis Disposition: DC-01 TO HOME OR SELFCARE Is pt being admited?: No Does the pt Need Aspirin: No Condition: Stable Instructions: Pharyngitis (ED) Additional Instructions: rest voice hydrate well with water medications as ordered today if this persists see Dr Vergara the throat specialist listed below follow up with you PCP and or your [facility] doctors as scheduled continue your home medications. bring them with you to the hospital anytime you come to ER or to doctor return to er if short of breath, have chest pain, or fever that will not come down with motrin use motrin for fever or pain avoid tylenol because of your liver issues Prescriptions: Amoxicillin 500 mg PO BID #20 capsule Fluticasone [Flonase] 1 spray NS QDAY #1 bottle Referrals: PRIMARY CARE, [Primary Care Provider] - 3-5 Days DARRIN WALKER MD [Staff Physician] - 3-5 Days Time of Disposition: 15:30
== END 2017-09-12 16:24 | disposition home or self-care (01) ==
LOC: ED 12:24
DX: J02.9 Acute pharyngitis, unspecified (principal); I10 Essential (primary) hypertension; K21.9 Gastro-esophageal reflux disease without esophagitis
CPT/HCPCS: 99282

== ENCOUNTER 2017-10-25 16:31 | Emergency (ER) | payer MEDICAID ==
[2017-10-25 16:56] VITALS: BP 135/97
--- NOTE | 2017-10-25 19:28 | Emergency Department Report ---
Blank Doc - Documentation Documentation: Patient is 62 years old male history of liver cirrhosis secondary to hepatitis C he is currently on hep C treatment. Patient presented with fever and generalized body ache and cough nonproductive. Patient also stated that he been nauseated but no vomiting. On exam no acute distress sounds normal lung diminished on both side, abdomen is soft nontender slightly distended. Patient will need further workup.
[2017-10-25] MEDS ORDERED: MOTRIN PO ONE (19:38)
--- NOTE | 2017-10-25 19:42 | Emergency Department Report ---
Minor Respiratory - HPI Chief Complaint: Upper Respiratory Infection Stated Complaint: FLU Time Seen by Provider: 10/25/17 19:20 Duration: 2 Days Severity: moderate Minor Respiratory: Yes Able to Tolerate Fluids, Yes Cough, Yes Fever, No Rhinorrhea, No Sore Throat, No Ear Pain, No Sick Contacts, No Hemoptysis, No Chest Pain, No Shortness of Breath Other History: Patient is a 62-year-old male with a history of liver cirrhosis secondary to hepatitis C who presents to ED complaining of fever, cough and flulike symptoms for the past days. Patient states his cough is nonproductive. ED Review of Systems ROS: Stated complaint: FLU Other details as noted in HPI Constitutional: fever. denies: chills Eyes: denies: eye pain, eye discharge, vision change ENT: denies: ear pain, throat pain Respiratory: cough. denies: shortness of breath, wheezing Cardiovascular: denies: chest pain, palpitations Endocrine: no symptoms reported Gastrointestinal: nausea. denies: abdominal pain, diarrhea Genitourinary: denies: urgency, dysuria Musculoskeletal: denies: back pain, joint swelling, arthralgia Skin: denies: rash, lesions Neurological: denies: headache, weakness, paresthesias Psychiatric: denies: anxiety, depression Hematological/Lymphatic: denies: easy bleeding, easy bruising ED Past Medical Hx - Past Medical History Hx Hypertension: Yes Hx Congestive Heart Failure: No Hx Diabetes: No Hx GERD: Yes Hx Liver Disease: Yes (cirrhosis, hx of hep C) Hx Psychiatric Treatment: Yes (schizophrenia) Hx Asthma: No Hx COPD: No Additional medical history: HERNIA - Surgical History Additional Surgical History: Right arm surgery 2014 - Social History Smoking Status: Unknown if ever smoked Substance Use Type: None - Medications Home Medications: Home Medications Medication Instructions Recorded Confirmed Last Taken Type Esomeprazole Magnesium [NexIUM] 20 mg PO BID 11/26/13 06/13/17 1 Day Ago History ~06/12/17 Nadolol [Corgard] 20 mg PO QDAY 11/26/13 06/13/17 1 Day Ago History ~06/12/17 Spironolactone [Aldactone] 25 mg PO DAILY #30 tablet 03/23/15 06/13/17 1 Day Ago Rx ~06/12/17 Amoxicillin 500 mg PO BID #20 capsule 09/12/17 Unknown Rx Fluticasone [Flonase] 1 spray NS QDAY #1 bottle 09/12/17 Unknown Rx Naproxen [Naprosyn] 500 mg PO BID #30 tablet 10/26/17 Unknown Rx guaiFENesin [Robitussin] 200 mg PO Q6HR #80 ml 10/26/17 Unknown Rx Minor Respiratory Exam - Exam General: Vital signs noted. No distress. Alert and acting appropriately. HEENT: Yes Moist Mucous Membranes, No Pharyngeal Erythema, No Pharyngeal Exudates, No Rhinorrhea, No Conjuctival Injection, No Frontal Tenderness, No Maxillary Tenderness Ear: Neither TM Bulge, Neither TM Erythema, Neither EAC Pain, Neither EAC Discharge Neck: Yes Supple, No Adenopathy Lungs: Yes Good Air Exchange, No Wheezes, No Ronchi, No Stridor, No Cough, No Labored Respirations, No Retractions, No Use of Accessory Muscles, No Other Abnormal Lung Sounds Heart: Yes Regular, No Murmur Abdomen: Yes Normal Bowel Sounds, No Tenderness, No Peritoneal Signs Skin: No Rash, No Edema Neurologic: Alert and oriented, no deficits. Musculoskeletal: Unremarkable. ED Course Vital Signs 10/25/17 16:54 Temperature 100.6 F H Pulse Rate 66 Respiratory 18 Rate Blood Pressure 135/97 O2 Sat by Pulse 96 Oximetry ED Medical Decision Making - Lab Data Result diagrams: 10/25/17 19:52 10/25/17 19:52 - Radiology Data Radiology results: report reviewed, image reviewed FINDINGS: Heart: Normal. Mediastinum/Vessels: Normal. Lungs/Pleural space: Normal. Bony thorax: No acute osseous abnormality. Other: A 2.5 centimeter linear tubular foreign body is identified along the posterior wall of the heart as visualized on the lateral projection. IMPRESSION: No acute pulmonary process. 2.5 centimeter linear radiopaque foreign body best visualized on the lateral view may represent piece of a broken catheter or lead within the pulmonary vasculature or cardiac wall. CT scan is recommended for further evaluation.. Transcribed By: [facility] Dictated By: GONZALEZ GARCIA Electronically Authenticated By: GONZALEZ GARCIA Signed Date/Time: 10/25/17 6984 - Medical Decision Making 62-year-old male presents with viral syndrome and a pulmonary nodule ED course: CBC, CMP, chest x-ray ordered. Chest x-ray showed foreign body, CT of the chest suggested. CT of the chest ordered, shows right lung nodule, suggests follow up study in 3 months Discussed this findings with the patient. I discussed with the patient and that nodules can range firm from benign to cancerous and would to be watched and follow-up studies done. I discussed with the patient to follow-up with his primary care at [facility]. I also discussed the patient and I given him a couple referrals that he can follow-up with. Patient received Motrin, Zofran in the ED. Fever resolved no fever during the ED stay. Discussed with mother symptomatic relief with [id number] medications. Discussed continue Motrin as needed for fever and pain. Discussed increase fluids and diet intake. Discussed rest much needed. Discussed daily vitamin C for immune booster. Discussed follow-up with supervisor food checkers and cashiers in 3-5 days. Patient's mother verbally states she understands and will comply the following instructions and follow-up Vital signs stable. Patient is in no acute or respiratory or respiratory distress. Vision is alert and advised 3.he understands all instructions given. Patient states he will follow-up with [facility] Critical care attestation.: If time is entered above; I have spent that time in minutes in the direct care of this critically ill patient, excluding procedure time. ED Disposition Clinical Impression: Viral syndrome, Pulmonary nodule URI (upper respiratory infection) Qualifiers: URI type: unspecified URI Qualified Code(s): J06.9 - Acute upper respiratory infection, unspecified Disposition: DC-01 TO HOME OR SELFCARE Is pt being admited?: No Does the pt Need Aspirin: No Condition: Stable Instructions: Cold Symptoms (ED), Viral Syndrome (ED), Pulmonary Nodules (ED) Additional Instructions: Make sure to follow up with the primary care physician as discussed. Follow up with your primary care for [address] scan to assess the findings today Take all your medications as you've been prescribed. If you have any worsening symptoms or develop new symptoms please return to ED immediately. Prescriptions: guaiFENesin [Robitussin] 200 mg PO Q6HR #80 ml Naproxen [Naprosyn] 500 mg PO BID #30 tablet Referrals: TAMERA HECK MD [Primary Care Provider] - 3-5 Days MIGUEL RUFFIN MD [Referring] - 3-5 Days TIMA BALDERRAMA MD [Referring] - 3-5 Days BRENDAN HADDAD MD [Staff Physician] - 3-5 Days [facility] [Outside] - 3-5 Days [facility] [Outside] - 3-5 Days [facility] [Outside] - 3-5 Days [facility] [Outside] - 3-5 Days Forms: Accompanied Note, Work/School Release Form(ED) Time of Disposition: 00:06
[2017-10-25] MEDS ORDERED: ZOFRAN ODT PO ONE (19:45)
[2017-10-25 20:07] LABS: Hematocrit 41.2 % (35.5-45.6); Hemoglobin 14.2 gm/dl (11.8-15.2); Mean Corpuscular HGB Conc 35 % (32-34); Mean Corpuscular Hemoglobin 36 pg (28-32); Mean Corpuscular Volume 104 fl (84-94); Red Blood Count 3.96 M/mm3 (3.65-5.03); Red Cell Distribution Width 14.3 % (13.2-15.2)
[2017-10-25 20:11] LABS: Platelet Count 66 K/mm3 (140-440)
[2017-10-25 20:20] LABS: Alanine Aminotransferase 37 units/L (7-56); BUN/Creatinine Ratio 4; Blood Urea Nitrogen 4 mg/dL (9-20); Calcium 8.3 mg/dL (8.4-10.2); Hemolysis Index 14
--- NOTE | 2017-10-25 21:26 | XRay Report ---
FINAL REPORT PROCEDURE: XR CHEST ROUTINE 2V TECHNIQUE: PA and lateral chest radiographs were obtained. CPT 25501 HISTORY: cough/fever COMPARISON: No prior studies are available for comparison. FINDINGS: Heart: Normal. Mediastinum/Vessels: Normal. Lungs/Pleural space: Normal. Bony thorax: No acute osseous abnormality. Other: A 2.5 centimeter linear tubular foreign body is identified along the posterior wall of the heart as visualized on the lateral projection. IMPRESSION: No acute pulmonary process. 2.5 centimeter linear radiopaque foreign body best visualized on the lateral view may represent piece of a broken catheter or lead within the pulmonary vasculature or cardiac wall. CT scan is recommended for further evaluation..
[2017-10-25 21:40] LABS: Basophils % (Manual) 0 % (0.0-1.8); Eosinophils % (Manual) 0 % (0.0-4.3); Platelet Estimate Appears Decreased; Total Cells Counted 100
--- NOTE | 2017-10-25 23:23 | Cat Scan Report ---
FINAL REPORT PROCEDURE: CT CHEST WO CON TECHNIQUE: Computerized axial tomography of the chest was performed without contrast material. This study is performed without intravenous contrast and the sensitivity for pathology, including neoplasms, adenopathy, abscess, pulmonary embolism and aortic dissection, is reduced. HISTORY: ForeignBody seen on xray COMPARISON: No prior studies are available for comparison. TECHNICAL QUALITY: Satisfactory. FINDINGS: Heart and pericardium: Normal. Thoracic aorta: Normal. Pulmonary vasculature: Normal. Lymph nodes: No enlarged thoracic lymph nodes. Lungs: A pleural-based 6 millimeter nodule is noted adjacent to the oblique fissure as seen in image 72 of series 3. Otherwise there are no infiltrates or mass lesions.. Pleural space: No effusion, thickening, or pneumothorax. Musculoskeletal structures: No significant abnormality. Upper abdominal structures: Liver demonstrates mildly nodular outlines. Prominent venous structures are identified at the gastroesophageal junction, splenic hilum and perigastric region. Multiple nodular lesions are identified in the peripancreatic region largest measuring about 1.7 centimeters in short axis as seen image 118 of series 3.. IMPRESSION: No acute pulmonary process. 6 millimeter nodule adjacent to the oblique fissure in the right lung. A three-month follow-up study is recommended. Peripancreatic lymphadenopathy. Nodular outlines of liver and the multiple tortuous venous structures most likely represent cirrhosis..
== END 2017-10-26 00:35 | disposition home or self-care (01) ==
LOC: ED 16:31
DX: B34.9 Viral infection, unspecified (principal); R91.1 Solitary pulmonary nodule; J06.9 Acute upper respiratory infection, unspecified; I10 Essential (primary) hypertension; K21.9 Gastro-esophageal reflux disease without esophagitis; F20.9 Schizophrenia, unspecified
CPT/HCPCS: 36415; 71046; 71250; 80053; 85007; 85025; Q0162

== ENCOUNTER 2017-12-25 21:50 | Emergency (ER) | payer MEDICAID ==
[2017-12-25 22:41] VITALS: BP 138/79
[2017-12-26 02:14] LABS: Bilirubin,Urine NEG (Negative); Blood,Urine MOD (Negative); Color,Urine Yellow (Yellow); Mucus,Urine 1+ /HPF; Protein,Urine <15 mg/dL mg/dL (Negative); Urobilinogen,Urine < 2.0 mg/dL (<2.0)
== END 2017-12-25 22:55 | disposition left against medical advice (07) ==
LOC: ED 21:50
DX: R05 Cough (principal); Z53.21 Procedure and treatment not carried out due to patient leaving prior to being seen by health care provider
CPT/HCPCS: 81001

== ENCOUNTER 2019-03-19 10:54 | Emergency (ER) | payer MEDICARE ==
--- NOTE | 2019-03-19 11:27 | Event Note ---
ED Screening Note ED Screening Note: states he hit his right foot and right 2nd toe against something about two weeks ago states he has bruising to the 2nd toe has been ambulatory This initial assessment/diagnostic orders/clinical plan/treatment(s) is/are subject to change based on patients health status, clinical progression and re-assessment by fellow clinical providers in the ED. Further treatment and workup at subsequent clinical providers discretion. Patient/guardian urged not to elope from the ED as their condition may be serious if not clinically assessed and managed. Initial orders include: XR right foot
--- NOTE | 2019-03-19 12:43 | XRay Report ---
Right foot, 3 views INDICATION: Right big toe and second toe pain for 2 weeks. COMPARISON: None. IMPRESSION: Mild osteopenia is suspected. No evidence for fracture, dislocation or joint pathology. The soft tissues are within normal limits. A moderate plantar spur is identified. Signer Name: Oswaldo Harrison Jr, MD Signed: 03/19/2019 12:39 PM Workstation Name: [id number]
--- NOTE | 2019-03-19 12:47 | Emergency Department Report ---
ED Extremity Problem HPI - General Chief complaint: Extremity Injury, Lower Stated complaint: RT FOOR PAIN Time Seen by Provider: 03/19/19 11:24 Source: patient Mode of arrival: Ambulatory Limitations: No Limitations - History of Present Illness Initial comments: This is a 64-year-old gentleman who is presenting with some discoloration of the right second toe. Patient states he hit his toe approximately a week ago. Patient no longer has any pain but he still continued to have some discoloration under the nail. Patient states initially was aching throbbing pain that is now has full range of motion and can walk in place no shoes. Patient states he occasionally will have some bilateral lower extremity cramping this present for approximately a year. Patient denies any fevers chills nausea vomiting diarrhea at this time. - Related Data Home Medications Medication Instructions Recorded Confirmed Last Taken Esomeprazole Magnesium [NexIUM] 20 mg PO BID 11/26/13 06/13/17 1 Day Ago ~06/12/17 Nadolol [Corgard] 20 mg PO QDAY 11/26/13 06/13/17 1 Day Ago ~06/12/17 Previous Rx's Medication Instructions Recorded Last Taken Type Spironolactone [Aldactone] 25 mg PO DAILY #30 tablet 03/23/15 1 Day Ago Rx ~06/12/17 Amoxicillin 500 mg PO BID #20 capsule 09/12/17 Unknown Rx Fluticasone [Flonase] 1 spray NS QDAY #1 bottle 09/12/17 Unknown Rx Naproxen [Naprosyn] 500 mg PO BID #30 tablet 10/26/17 Unknown Rx guaiFENesin [Robitussin] 200 mg PO Q6HR #80 ml 10/26/17 Unknown Rx Allergies Allergy/AdvReac Type Severity Reaction Status Date / Time No Known Allergies Allergy Verified 11/25/16 12:03 ED Review of Systems ROS: Stated complaint: RT FOOR PAIN Other details as noted in HPI Comment: All other systems reviewed and negative ED Past Medical Hx - Past Medical History Previous Medical History?: Yes Hx Hypertension: Yes Hx Congestive Heart Failure: No Hx Diabetes: No Hx GERD: Yes Hx Liver Disease: Yes (cirrhosis, hx of hep C-treated clear as of 03/2019) Hx Psychiatric Treatment: Yes (schizophrenia) Hx Asthma: No Hx COPD: No Additional medical history: HERNIA - Surgical History Past Surgical History?: Yes Additional Surgical History: Right arm surgery 2014, hernia repair - Social History Smoking Status: Never Smoker Substance Use Type: None - Medications Home Medications: Home Medications Medication Instructions Recorded Confirmed Last Taken Type Esomeprazole Magnesium [NexIUM] 20 mg PO BID 11/26/13 06/13/17 1 Day Ago History ~06/12/17 Nadolol [Corgard] 20 mg PO QDAY 11/26/13 06/13/17 1 Day Ago History ~06/12/17 Spironolactone [Aldactone] 25 mg PO DAILY #30 tablet 03/23/15 06/13/17 1 Day Ago Rx ~06/12/17 Amoxicillin 500 mg PO BID #20 capsule 09/12/17 Unknown Rx Fluticasone [Flonase] 1 spray NS QDAY #1 bottle 09/12/17 Unknown Rx Naproxen [Naprosyn] 500 mg PO BID #30 tablet 10/26/17 Unknown Rx guaiFENesin [Robitussin] 200 mg PO Q6HR #80 ml 10/26/17 Unknown Rx ED Physical Exam - General Limitations: No Limitations General appearance: alert, in no apparent distress - Head Head exam: Present: atraumatic, normocephalic - Eye Eye exam: Present: normal appearance - ENT ENT exam: Present: mucous membranes moist - Neck Neck exam: Present: normal inspection - Respiratory Respiratory exam: Absent: respiratory distress - Rectal Rectal exam: Present: deferred - Extremities Exam Extremities exam: Present: normal inspection - Expanded Lower Extremity Exam Right Foot/Toe exam: Present: full ROM, subungual hematoma (of the right second toe). Absent: tenderness, swelling - Back Exam Back exam: Present: normal inspection - Neurological Exam Neurological exam: Present: alert, oriented X3 - Psychiatric Psychiatric exam: Present: normal affect, normal mood - Skin Skin exam: Present: warm, dry, intact, normal color. Absent: rash ED Course Vital Signs 03/19/19 11:24 Temperature 98.3 F Pulse Rate 60 Respiratory 18 Rate Blood Pressure 131/77 O2 Sat by Pulse 96 Oximetry ED Medical Decision Making - Medical Decision Making Patient with a subungual hematoma which is been present too long for evacuation. Patient will be discharged home to continue with warm water soaks. Patient also given vascular surgery follow-up for asthma claudication and the patient has. Patient discharged in stable condition. Critical care attestation.: If time is entered above; I have spent that time in minutes in the direct care of this critically ill patient, excluding procedure time. ED Disposition Clinical Impression: Subungual hematoma, Claudication Disposition: TO HOME OR SELFCARE Is pt being admited?: No Does the pt Need Aspirin: No Condition: Stable Instructions: Peripheral Vascular Disorders (ED), Subungual Hematoma (ED) Referrals: PABLO ARMENDARIZ MD [Staff Physician] - 3-5 Days Time of Disposition: 12:47
[2019-03-19 13:02] VITALS: BP 134/80
== END 2019-03-19 13:00 | disposition home or self-care (01) ==
LOC: ED 10:54
DX: S60.10XA Contusion of unspecified finger with damage to nail, initial encounter (principal); I10 Essential (primary) hypertension; K21.9 Gastro-esophageal reflux disease without esophagitis; K74.60 Unspecified cirrhosis of liver; F20.9 Schizophrenia, unspecified; Z98.890 Other specified postprocedural states; Z79.899 Other long term (current) drug therapy; W22.09XA Striking against other stationary object, initial encounter; Y93.89 Activity, other specified; Y92.89 Other specified places as the place of occurrence of the external cause; Y99.8 Other external cause status
CPT/HCPCS: 99283

== ENCOUNTER 2019-03-26 11:05 | Emergency (ER) | payer MEDICARE ==
[2019-03-26 11:30] VITALS: BP 114/68
--- NOTE | 2019-03-26 11:45 | Emergency Department Report ---
Blank Doc - Documentation Documentation: This is a 64-year-old male that presents with neck pain. Denies any injuries or trauma. Stated wake up this way. This initial assessment/diagnostic orders/clinical plan/treatment(s) is/are subject to change based on patient's health status, clinical progression and re-assessment by fellow clinical providers in the ED. Further treatment and workup at subsequent clinical providers discretion. Patient/guardians urged not to elope from the ED as their condition may be serious if not clinically assessed and managed. Initial orders include: 1- Patient sent to [facility] for further evaluation and treatment
[2019-03-26] MEDS ORDERED: IBUPROFEN PO ONE (12:40)
--- NOTE | 2019-03-26 12:40 | Emergency Department Report ---
ED Back Pain/Injury HPI - General Chief Complaint: Neck Pain/Injury Stated Complaint: RT SIDE NECK/PAIN Time Seen by Provider: 03/26/19 11:29 Source: patient Limitations: No Limitations - History of Present Illness Initial Comments: Patient is a 64-year-old male comes to the ER complaining of acute on chronic neck pain. He states that he woke up and his neck hurts. There is no trauma. He seems overly concerned about his neck pain we discussed arthritis and he said he is not enough to have arthritis. Patient requesting an x-ray. Patient has not seen his primary care physician for about a month. He states that his primary care which is sent him to a referral so he came to the ER. Patient has full range of motion of his neck. He is afebrile and nontoxic on exam. - Related Data Home Medications Medication Instructions Recorded Confirmed Last Taken Esomeprazole Magnesium [NexIUM] 20 mg PO BID 11/26/13 06/13/17 1 Day Ago ~06/12/17 Nadolol [Corgard] 20 mg PO QDAY 11/26/13 06/13/17 1 Day Ago ~06/12/17 Previous Rx's Medication Instructions Recorded Last Taken Type Spironolactone [Aldactone] 25 mg PO DAILY #30 tablet 03/23/15 1 Day Ago Rx ~06/12/17 predniSONE [Deltasone] 20 mg PO DAILY #5 tablet 03/26/19 Unknown Rx Allergies Allergy/AdvReac Type Severity Reaction Status Date / Time No Known Allergies Allergy Verified 11/25/16 12:03 ED Review of Systems ROS: Stated complaint: RT SIDE NECK/PAIN Other details as noted in HPI Comment: All other systems reviewed and negative ED Past Medical Hx - Past Medical History HERNIA, hep c, asthma, htn, schizophrenia ED Back Pain Physical Exam - Exam General: Vital signs noted. No distress. Alert and acting appropriately. Back/Abdomen: No Abdominal Tenderness, No Perithoracic Tenderness, No Perilumbar Tenderness, No Sacroiliac Tenderness, No Flank Tenderness, No Straight Leg Raise Pain Neuro: Yes Normal Sensation, Yes Normal DTR's, Yes Normal Gait, No Motor Weakness ED Course Vital Signs 03/26/19 11:28 Temperature 98.6 F Pulse Rate 54 L Respiratory 18 Rate Blood Pressure 114/68 O2 Sat by Pulse 98 Oximetry Ed Back Pain Tests - Tests Tests: Normal X Rays ED Medical Decision Making - Radiology Data Radiology results: report reviewed, image reviewed - Medical Decision Making no fall or trauma no cspsine tenderness neuro intact ambulatory no fever xray noted medicated with motrin dc home with dc plan of care and follow up with pcp Vital Signs 03/26/19 03/26/19 11:28 12:59 Temperature 98.6 F Pulse Rate 54 L Respiratory 18 16 Rate Blood Pressure 114/68 O2 Sat by Pulse 98 Oximetry Critical care attestation.: If time is entered above; I have spent that time in minutes in the direct care of this critically ill patient, excluding procedure time. ED Disposition Clinical Impression: Arthritis, Musculoskeletal neck pain Disposition: DC-01 TO HOME OR SELFCARE Is pt being admited?: No Does the pt Need Aspirin: No Condition: Stable Instructions: Neck Exercises (GEN) Additional Instructions: DIET TOLERATED MEDS ORDERED TODAY IN ER FOLLOW INSTRUCTIONS ON THE BOTTLE FOLLOW UP PCP WITHIN 48 HOURS TO ENSURE YOU ARE GETTING BETTER ACTIVITY TOLERATED MOTRIN OR TYLENOL FOR PAIN OR FEVER RETURN TO THE ER FOR WORSENING SYMPTOMS NOT RELIEVED BY YOUR MEDICATIONS. warm compresses will help with pain Prescriptions: predniSONE [Deltasone] 20 mg PO DAILY #5 tablet Referrals: NIGEL VÁZQUEZ JR, MD [Primary Care Provider] - 3-5 Days Time of Disposition: 13:34
--- NOTE | 2019-03-26 13:49 | XRay Report ---
Cervical spine 5 views Indication: PAIN IN NECK Findings: There is no fracture, subluxation, or other acute radiographic abnormality of the cervical spine. The re is discogenic degenerative change at C3-4, C4-5, C5-6, and C6-7. The prevertebral soft tissues are unremarkable. The spinous processes are unremarkable. Signer Name: Navin Jamil MD Signed: 03/26/2019 1:45 PM Workstation Name: [id number]
== END 2019-03-26 13:44 | disposition home or self-care (01) ==
LOC: ED 11:05
DX: M54.2 Cervicalgia (principal); M19.90 Unspecified osteoarthritis, unspecified site; G89.29 Other chronic pain; I10 Essential (primary) hypertension; F20.9 Schizophrenia, unspecified; J45.909 Unspecified asthma, uncomplicated; Z86.19 Personal history of other infectious and parasitic diseases
CPT/HCPCS: 72040; 99283

== ENCOUNTER 2019-06-18 15:48 | Emergency (ER) | payer MEDICARE ==
--- NOTE | 2019-06-18 16:41 | Emergency Department Report ---
Blank Doc - Documentation Documentation: 64-year-old male that presents with cough with productive with some blood noti crystal. This initial assessment/diagnostic orders/clinical plan/treatment(s) is/are subject to change based on patient's health status, clinical progression and re- assessment by fellow clinical providers in the ED. Further treatment and workup at subsequent clinical providers discretion. Patient/guardians urged not to elope from the ED as their condition may be serious if not clinically assessed a nd managed. Initial orders include: 1- Patient sent to [facility] for further evaluation and treatment 2- CXR 3- labs
--- NOTE | 2019-06-18 17:05 | XRay Report ---
CHEST 1 VIEW INDICATION / CLINICAL INFORMATION: cough. COMPARISON: None available. FINDINGS: SUPPORT DEVICES: None. HEART / MEDIASTINUM: No significant abnormality. LUNGS / PLEURA: No significant pulmonary or pleural abnormality.. No pneumothorax. ADDITIONAL FINDINGS: No significant additional findings. IMPRESSION: 1. No acute findings. Signer Name: Navin Jamil MD Signed: 06/18/2019 5:00 PM Workstation Name: [id number]
[2019-06-18 17:27] LABS: Hematocrit 34.9 % (35.5-45.6); Hemoglobin 11.8 gm/dl (11.8-15.2); Mean Corpuscular HGB Conc 34 % (32-34); Mean Corpuscular Volume 104 fl (84-94); Red Blood Count 3.35 M/mm3 (3.65-5.03); Red Cell Distribution Width 14.8 % (13.2-15.2)
[2019-06-18 17:51] LABS: Alanine Aminotransferase 28 units/L (7-56); Albumin 2.8 g/dL (3.9-5); BUN/Creatinine Ratio 10; Blood Urea Nitrogen 13 mg/dL (9-20); Calcium 8.2 mg/dL (8.4-10.2); Hemolysis Index 5
[2019-06-18 18:44] VITALS: BP 105/67
--- NOTE | 2019-06-18 19:48 | Emergency Department Report ---
<PABLO DOAN - Last Filed: 06/18/19 19:44> - General Chief Complaint: Upper Respiratory Infection Stated Complaint: COUGH UP BLOOD Time Seen by Provider: 06/18/19 16:39 Source: patient Mode of arrival: Ambulatory Limitations: No Limitations - History of Present Illness Initial Comments: Patient is a 64-year-old -[place] male with a history of chronic liver disease, schizophrenia, HTN and GERD who presents to the ED with complaint of acute onset persistent nasal and sinus congestion with intermittent dry cough for the last 2 weeks. Patient states that he has had multiple episodes of hemoptysis which his face result from him coughing hard to clear his throat every morning. Patient states that the symptoms are beginning intermittent. Patient denies night sweats, shortness of breath, chest pain, headache, dizziness, fever, chills, nausea and vomiting, sore throat or abdominal pain. Patient states that after these he feels great and that he just came to the ER for chest x-ray to make sure everything was okay. Patient denies abdominal pain, hematochezia, hematuria, change in vision or hematemesis. Patient also denies ever smoking tobacco products. MD Complaint: cough, rhinorrhea, nasal congestion, sinus pain -: Gradual, week(s) (2) Severity scale (0 -10): 0 Quality: dull Consistency: intermittent Improves With: nothing Worsens With: nothing Associated Symptoms: denies other symptoms, rhinorrhea, nasal congestion, cough. denies: fever, chills, diaphoresis, stiff neck, chest pain, shortness of breath, abdominal pain, nausea, vomiting, diarrhea, rash, right sweats, weight loss, epistaxis, hoarseness, ear pain Treatments Prior to Arrival: none - Related Data Home Medications Medication Instructions Recorded Confirmed Last Taken Esomeprazole Magnesium [NexIUM] 20 mg PO BID 11/26/13 06/13/17 1 Day Ago ~06/12/17 Nadolol [Corgard] 20 mg PO QDAY 11/26/13 06/13/17 1 Day Ago ~06/12/17 Previous Rx's Medication Instructions Recorded Last Taken Type Spironolactone [Aldactone] 25 mg PO DAILY #30 tablet 03/23/15 1 Day Ago Rx ~06/12/17 predniSONE [Deltasone] 20 mg PO DAILY #5 tablet 03/26/19 Unknown Rx Benzonatate [Tessalon Perles] 100 mg PO Q8HR #30 capsule 06/18/19 Unknown Rx Cetirizine HCl [Zyrtec 10mg tab] 10 mg PO DAILY #30 tablet 06/18/19 Unknown Rx Doxycycline Hyclate [Doxycycline 100 mg PO Q12HR #20 tab 06/18/19 Unknown Rx Hyclate TAB] Allergies Allergy/AdvReac Type Severity Reaction Status Date / Time No Known Allergies Allergy Verified 11/25/16 12:03 ED Review of Systems Constitutional: denies: chills, fever Eyes: denies: eye pain, eye discharge, vision change ENT: congestion. denies: ear pain, throat pain Respiratory: cough, other (hemoptysis). denies: shortness of breath, wheezing Cardiovascular: denies: chest pain, palpitations Endocrine: no symptoms reported Gastrointestinal: denies: abdominal pain, nausea, diarrhea Genitourinary: denies: urgency, dysuria Musculoskeletal: denies: back pain, joint swelling, arthralgia Skin: denies: rash, lesions Neurological: denies: headache, weakness, paresthesias Psychiatric: denies: anxiety, depression Hematological/Lymphatic: denies: easy bleeding, easy bruising ED Past Medical Hx - Past Medical History Previous Medical History?: No Hx Hypertension: Yes Hx Congestive Heart Failure: No Hx Diabetes: No Hx GERD: Yes Hx Liver Disease: Yes (cirrhosis, hx of hep C-treated clear as of 03/2019) Hx Psychiatric Treatment: Yes (schizophrenia) Hx Asthma: No Hx COPD: No Additional medical history: HERNIA, hep c, asthma, htn, schizophrenia - Surgical History Past Surgical History?: No Additional Surgical History: Right arm surgery 2014, hernia repair - Social History Smoking Status: Former Smoker Substance Use Type: None - Medications Home Medications: Home Medications Medication Instructions Recorded Confirmed Last Taken Type Esomeprazole Magnesium [NexIUM] 20 mg PO BID 11/26/13 06/13/17 1 Day Ago History ~06/12/17 Nadolol [Corgard] 20 mg PO QDAY 11/26/13 06/13/17 1 Day Ago History ~06/12/17 Spironolactone [Aldactone] 25 mg PO DAILY #30 tablet 03/23/15 06/13/17 1 Day Ago Rx ~06/12/17 predniSONE [Deltasone] 20 mg PO DAILY #5 tablet 03/26/19 Unknown Rx Benzonatate [Tessalon Perles] 100 mg PO Q8HR #30 capsule 06/18/19 Unknown Rx Cetirizine HCl [Zyrtec 10mg tab] 10 mg PO DAILY #30 tablet 06/18/19 Unknown Rx Doxycycline Hyclate [Doxycycline 100 mg PO Q12HR #20 tab 06/18/19 Unknown Rx Hyclate TAB] ED Physical Exam - General Limitations: No Limitations General appearance: alert, in no apparent distress - Head Head exam: Present: atraumatic, normocephalic - Eye Eye exam: Present: normal appearance, PERRL, EOMI - ENT ENT exam: Present: normal exam, normal orophraynx, mucous membranes moist, TM's normal bilaterally, normal external ear exam - Neck Neck exam: Present: normal inspection, full ROM - Respiratory Respiratory exam: Present: normal lung sounds bilaterally. Absent: respiratory distress, wheezes, rales, rhonchi, stridor, chest wall tenderness - Cardiovascular Cardiovascular Exam: Present: regular rate, normal rhythm, normal heart sounds. Absent: systolic murmur, diastolic murmur, rubs, gallop - GI/Abdominal GI/Abdominal exam: Present: soft, normal bowel sounds. Absent: tenderness, guarding, rebound, hyperactive bowel sounds, hypoactive bowel sounds, mass - Rectal Rectal exam: Present: deferred - Extremities Exam Extremities exam: Present: normal inspection, full ROM, normal capillary refill - Back Exam Back exam: Present: normal inspection - Neurological Exam Neurological exam: Present: alert, oriented X3, CN II-XII intact, normal gait, reflexes normal - Psychiatric Psychiatric exam: Present: normal affect, normal mood - Skin Skin exam: Present: warm, dry, intact, normal color. Absent: rash ED Course - Reevaluation(s) Reevaluation #1: 06/18/19 19:49 Patient is a 64-year-old male who presented to the ED with persistent nasal and sinus congestion and mild dry cough intermittently for 2 weeks with intermittent hemoptysis occasionally. In the ED, patient is alert and oriented 3 and is not in distress. Lab test results were reviewed and are all nonactionable. Chest x-ray shows no acute cardiopulmonary abnormalities or pneumonitis. On reevaluation, patient feeling better states that he does not cough all the time and that he would like to be discharged home because he just came to the ED for chest x-ray. Patient will discharge home and advised to follow-up with his primary care physician in 7-10 days for reevaluation or return to the ED immediately if symptoms get worse. ED Medical Decision Making - Lab Data Result diagrams: 06/18/19 17:13 06/18/19 17:13 - Radiology Data Radiology results: report reviewed, image reviewed Chest x-ray shows no acute cardiopulmonary abnormalities or pneumonitis. - Medical Decision Making Patient is a 64-year-old male who presented to the ED with persistent nasal and sinus congestion and mild dry cough intermittently for 2 weeks with intermittent hemoptysis occasionally. In the ED, patient is alert and oriented 3 and is not in distress. Lab test results were reviewed and are all nonactionable. Chest x-ray shows no acute cardiopulmonary abnormalities or pneumonitis. On reevaluation, patient feeling better states that he does not cough all the time and that he would like to be discharged home because he just came to the ED for chest x-ray. Patient will discharge home and advised to follow-up with his primary care physician in 7-10 days for reevaluation or return to the ED immediately if symptoms get worse. - Differential Diagnosis Acute URI; Pneumonia; Sinusitis; Bronchitis ED Disposition Clinical Impression: Acute upper respiratory infection, Acute bacterial sinusitis Acute bronchitis Qualifiers: Bronchitis organism: other organism Qualified Code(s): J20.8 - Acute bronchitis due to other specified organisms Disposition: DC-01 TO HOME OR SELFCARE Is pt being admited?: No Does the pt Need Aspirin: No Condition: Stable Instructions: Upper Respiratory Infection (ED), Acute Bronchitis (ED), Acute Bacterial Rhinosinusitis (ED) Additional Instructions: Take medication with food, drink plenty of fluids and follow-up with your primary care physician in 7-10 days for reevaluation. Return to the ED immediately if symptoms get worse. Prescriptions: Doxycycline Hyclate [Doxycycline Hyclate TAB] 100 mg PO Q12HR #20 tab Benzonatate [Tessalon Perles] 100 mg PO Q8HR #30 capsule Cetirizine HCl [Zyrtec 10mg tab] 10 mg PO DAILY #30 tablet Referrals: [facility] [Outside] - 3-5 Days Time of Disposition: 19:53 Print Language: MOROCCAN <PIERO IRBY - Last Filed: 06/19/19 03:53> ED Review of Systems ROS: Stated complaint: COUGH UP BLOOD Other details as noted in HPI ED Course Vital Signs 06/18/19 06/18/19 16:09 18:42 Temperature 98.5 F 98.2 F Pulse Rate 65 56 L Respiratory 20 18 Rate Blood Pressure 128/72 Blood Pressure 105/67 [Right] O2 Sat by Pulse 98 100 Oximetry ED Medical Decision Making - Lab Data Result diagrams: 06/18/19 17:13 06/18/19 17:13 - Medical Decision Making lab called regarding hyperkalemia, after visual inspection it was noted that sample had mild hemolysis. Pt has normal creatine. Critical care attestation.: If time is entered above; I have spent that time in minutes in the direct care of this critically ill patient, excluding procedure time. ED Disposition Is pt being admited?: No
[2019-06-18 19:49] LABS: Hypochromasia 1+; Platelet Estimate Appears Decreased; Total Cells Counted 100
[2019-06-18 19:50] LABS: Platelet Count 74 K/mm3 (140-440)
== END 2019-06-18 20:30 | disposition home or self-care (01) ==
LOC: ED 15:48
DX: J01.90 Acute sinusitis, unspecified (principal); J20.9 Acute bronchitis, unspecified; J06.9 Acute upper respiratory infection, unspecified; I10 Essential (primary) hypertension; K21.9 Gastro-esophageal reflux disease without esophagitis; J45.909 Unspecified asthma, uncomplicated; F20.9 Schizophrenia, unspecified; Z87.891 Personal history of nicotine dependence; Z86.19 Personal history of other infectious and parasitic diseases; Z79.899 Other long term (current) drug therapy
CPT/HCPCS: 36415; 71046; 80053; 85007; 85025

== ENCOUNTER 2019-09-05 13:07 | Emergency (ER) | payer MEDICARE ==
[2019-09-05] MEDS ORDERED: ASPIRIN 325 MG TAB PO ONE (13:31)
--- NOTE | 2019-09-05 13:57 | XRay Report ---
CHEST 2 VIEWS INDICATION: Chest Pain. COMPARISON: 06/18/2019. FINDINGS: Support devices: None. Heart: Within normal limits. Lungs/Pleura: No acute air space or interstitial disease. No significant pleural effusion. IMPRESSION: No acute findings. Signer Name: Jd Canales MD Signed: 09/05/2019 1:52 PM Workstation Name: [id number]
[2019-09-05 14:15] LABS: Hematocrit 37.7 % (35.5-45.6); Mean Corpuscular HGB Conc 35 % (32-34); Mean Corpuscular Volume 104 fl (84-94); Red Blood Count 3.62 M/mm3 (3.65-5.03); Red Cell Distribution Width 14.8 % (13.2-15.2)
[2019-09-05 14:25] LABS: Platelet Count 77 K/mm3 (140-440)
[2019-09-05 14:42] LABS: BUN/Creatinine Ratio 6; Blood Urea Nitrogen 6 mg/dL (9-20); Calcium 8.6 mg/dL (8.4-10.2); Hemolysis Index 12
[2019-09-05 15:05] LABS: Band Neutrophils # (Manual) 0.1 K/mm3; Total Cells Counted 100
[2019-09-05 15:06] LABS: Macrocytosis 1+; Platelet Estimate Consistent w Auto
--- NOTE | 2019-09-05 21:33 | Emergency Department Report ---
ED Chest Pain HPI - General Chief Complaint: Chest Pain Stated Complaint: CHEST PAIN Time Seen by Provider: 09/05/19 20:35 Source: patient Mode of arrival: Ambulatory Limitations: No Limitations - History of Present Illness Initial Comments: 64-year-old male presents to the emergency department with a complaint of a 2 month history of some intermittent midsternal to left-sided chest pain, intermittent shortness of breath and intermittent dizziness. The patient has a history of hepatitis C and thinks that it could be related to an elevated ammonia level. He says that he has a history of this and used to be on some type of medication but has not been on it in some time. He does not have a primary care physician but does follow with a psychological tests sales agent. At the time of my examination the patient denies any chest pain or shortness of breath but says he had some while in the waiting room. He also has a history of hypertension, GERD, cirrhosis, schizophrenia, asthma. He denies any fever, lower cavity swelling, nausea, vomiting or diaphoresis. No recent travel or contacts at home. He has not taken anything for her symptoms prior to arrival today. Denies any tobacco or illicit drug use. - Related Data Home Medications Medication Instructions Recorded Confirmed Last Taken Esomeprazole Magnesium [NexIUM] 20 mg PO BID 11/26/13 06/13/17 1 Day Ago ~06/12/17 Nadolol [Corgard] 20 mg PO QDAY 11/26/13 06/13/17 1 Day Ago ~06/12/17 Previous Rx's Medication Instructions Recorded Last Taken Type Spironolactone [Aldactone] 25 mg PO DAILY #30 tablet 03/23/15 1 Day Ago Rx ~06/12/17 predniSONE [Deltasone] 20 mg PO DAILY #5 tablet 03/26/19 Unknown Rx Benzonatate [Tessalon Perles] 100 mg PO Q8HR #30 capsule 06/18/19 Unknown Rx Cetirizine HCl [Zyrtec 10mg tab] 10 mg PO DAILY #30 tablet 06/18/19 Unknown Rx Doxycycline Hyclate [Doxycycline 100 mg PO Q12HR #20 tab 06/18/19 Unknown Rx Hyclate TAB] Allergies Allergy/AdvReac Type Severity Reaction Status Date / Time No Known Allergies Allergy Verified 11/25/16 12:03 Heart Score - HEART Score History: Slightly suspicious EKG: Normal Age: 45-65 Risk factors: 1-2 risk factors Troponin: < normal limit HEART Score: 2 - Critical Actions Critical Actions: 0-3 pts:0.9-1.7%risk of adverse cardiac event.Candidate for discharge ED Review of Systems ROS: Stated complaint: CHEST PAIN Other details as noted in HPI Comment: All other systems reviewed and negative Constitutional: denies: chills, fever Eyes: denies: eye pain, vision change ENT: denies: ear pain, throat pain Respiratory: shortness of breath. denies: cough Cardiovascular: chest pain. denies: palpitations, edema Gastrointestinal: denies: nausea, vomiting Genitourinary: denies: dysuria, discharge Musculoskeletal: denies: back pain, arthralgia Skin: denies: rash, lesions Neurological: other (dizziness). denies: headache ED Past Medical Hx - Past Medical History Hx Hypertension: Yes Hx Congestive Heart Failure: No Hx Diabetes: No Hx GERD: Yes Hx Liver Disease: Yes (cirrhosis, hx of hep C-treated clear as of 03/2019) Hx Psychiatric Treatment: Yes (schizophrenia) Hx Asthma: No Hx COPD: No Additional medical history: HERNIA, hep c, asthma, htn, schizophrenia - Surgical History Additional Surgical History: Right arm surgery 2013, hernia repair - Social History Smoking Status: Former Smoker Substance Use Type: None - Medications Home Medications: Home Medications Medication Instructions Recorded Confirmed Last Taken Type Esomeprazole Magnesium [NexIUM] 20 mg PO BID 11/26/13 06/13/17 1 Day Ago History ~06/12/17 Nadolol [Corgard] 20 mg PO QDAY 11/26/13 06/13/17 1 Day Ago History ~06/12/17 Spironolactone [Aldactone] 25 mg PO DAILY #30 tablet 03/23/15 06/13/17 1 Day Ago Rx ~06/12/17 predniSONE [Deltasone] 20 mg PO DAILY #5 tablet 03/26/19 Unknown Rx Benzonatate [Tessalon Perles] 100 mg PO Q8HR #30 capsule 06/18/19 Unknown Rx Cetirizine HCl [Zyrtec 10mg tab] 10 mg PO DAILY #30 tablet 06/18/19 Unknown Rx Doxycycline Hyclate [Doxycycline 100 mg PO Q12HR #20 tab 06/18/19 Unknown Rx Hyclate TAB] ED Physical Exam - General Limitations: No Limitations - Other Other exam information: GENERAL: The patient is well-developed well-nourished. HEENT: Normocephalic. Atraumatic. Patient has moist mucous membranes. EYES: Extraocular motions are intact. NECK: Supple. Trachea is midline CHEST/LUNGS: Clear to auscultation. There is no respiratory distress noted. HEART/CARDIOVASCULAR: Regular. There is no tachycardia. ABDOMEN: Abdomen is soft, nontender. Patient has normal bowel sounds. There is no abdominal distention. SKIN: Skin is warm and dry. NEURO: The patient is awake, alert, and oriented. The patient is cooperative. The patient has no focal neurologic deficits. Normal speech. MUSCULOSKELETAL: There is no tenderness or deformity. There is no evidence of acute injury. ED Course Vital Signs 09/05/19 09/05/19 09/05/19 13:29 22:18 22:45 Temperature 97.3 F L 97.3 F L Pulse Rate 60 47 L Respiratory 16 16 16 Rate Blood Pressure 123/69 Blood Pressure 133/73 [Left] O2 Sat by Pulse 97 99 Oximetry BLANCA score - Blanca Score Age > 65: (0) No Aspirin use within the Past 7 Days: (0) No 3 or more CAD Risk Factors: (0) No 2 or more Angina events in past 24 hrs: (1) Yes Known CAD with more than 50% Stenosis: (0) No Elevated Cardiac Markers: (0) No ST Deviation Greater than 0.5mm: (0) No BLANCA Score: 1 ED Medical Decision Making - Lab Data Result diagrams: 09/05/19 13:50 09/05/19 13:50 - EKG Data -: EKG Interpreted by Me EKG shows normal: sinus rhythm, axis, intervals, QRS complexes, ST-T waves Rate: bradycardia (57 bpm) - EKG Data When compared to previous EKG there are: no significant change Interpretation: unchanged when compared t (07/23/17) - Radiology Data Radiology results: image reviewed interpreted by me: Chest x-ray does not show any pneumonia, pneumothorax, focal consolidation, pleural effusions, or any other acute process. - Medical Decision Making This patient presents to the emergency department with a complaint of some intermittent chest pain and shortness of breath. However the patient seems to think it is secondary to an elevated ammonia level because of his cirrhosis. The patient's labs have been mostly unremarkable. He has had negative troponins 3. Ammonia level was within the normal range. EKG did not show any signs of ST elevation [place]. Chest x-ray did not show any acute process. From the point of my initial examination through the patient's discharge he did not have any return of his chest pain or shortness of breath. He has a heart score of 2. For this reason his information has been sent over to the [facility] heart cardiology group who should be contacting immaturely for close outpatient follow-up. Vital signs stable throughout his ED course. The patient will return to the emergency Department with any worsening of his symptoms or any acute distress. Critical Care Time: No Critical care attestation.: If time is entered above; I have spent that time in minutes in the direct care of this critically ill patient, excluding procedure time. ED Disposition Clinical Impression: Intermittent chest pain, Shortness of breath, Thrombocytopenia Disposition: - TO HOME OR SELFCARE Is pt being admited?: No Condition: Stable Instructions: Chest Pain (ED), Dyspnea (ED) Additional Instructions: Please follow up with a primary care physician and/or psychological tests sales agent. I am sending your contact information over to [facility] heart cardiology and someone should be contacting you in the next few days for some close outpatient follow- up. Return to the emergency department with any return of your chest pain, worsening of your symptoms, or any acute distress. Referrals: PRIMARY CARE, [Primary Care Provider] - 2-3 Days REGINALDO BANG MD [Staff Physician] - 2-3 Days [facility] [Provider Group] - 2-3 Days Time of Disposition: 22:33
[2019-09-05 21:55] LABS: Albumin 2.8 g/dL (3.9-5); Bilirubin,Direct 0.8 mg/dL (0-0.2)
[2019-09-05 22:55] VITALS: BP 133/73
== END 2019-09-05 22:55 | disposition home or self-care (01) ==
LOC: ED 13:07
DX: D69.6 Thrombocytopenia, unspecified (principal); R06.02 Shortness of breath; R07.89 Other chest pain; I10 Essential (primary) hypertension; K21.9 Gastro-esophageal reflux disease without esophagitis; F20.9 Schizophrenia, unspecified; Z98.890 Other specified postprocedural states; Z87.891 Personal history of nicotine dependence; Z79.899 Other long term (current) drug therapy
CPT/HCPCS: 36415; 71046; 80048; 80076; 82140; 84484; 85007; 85025; 93005; 93010

== ENCOUNTER 2019-10-10 19:00 | Emergency (ER) | payer MEDICARE | END 2019-10-10 19:50 | disposition left against medical advice (07) | LOC: ED 19:00 | DX: R53.1 Weakness (principal); Z53.21 Procedure and treatment not carried out due to patient leaving prior to being seen by health care provider ==

== ENCOUNTER 2019-10-31 12:36 | Emergency (ER) | payer MEDICARE ==
--- NOTE | 2019-10-31 14:40 | Emergency Department Report ---
{null, Blank Doc - Documentation Documentation: 64-year-old male that presents with right finger lac. This initial assessment/diagnostic orders/clinical plan/treatment(s) is/are subject to change based on patient's health status, clinical progression and re- assessment by fellow clinical providers in the ED. Further treatment and workup at subsequent clinical providers discretion. Patient/guardians urged not to elope from the ED as their condition may be serious if not clinically assessed and managed. Initial orders include: 1- Patient sent to [facility] for further evaluation and treatment }
[2019-10-31 15:23] VITALS: BP 137/82
[2019-10-31] MEDS ORDERED: TETANUS,DIPH,PERTUSS(ACELL) VACCINE 0.5 ML SYRINGE IM ONE (15:23)
[2019-10-31] MEDS ORDERED: LIDOCAINE (1%) 10 MG/1 ML VIAL 20 ML MDV INFILTRATI ONE (15:25)
[2019-10-31] MEDS ORDERED: LIDOCAINE (2%) 20 MG/1 ML VIAL 20 ML MDV INFILTRATI ONE ×2 (15:25→16:26)
[2019-10-31 15:32] LABS: Bilirubin,Urine NEG (Negative); Blood,Urine NEG (Negative); Color,Urine Amber (Yellow); Mucus,Urine 3+ /HPF; Sperm,Urine FEW /HPF (NP)
[2019-10-31] MEDS ORDERED: SODIUM CHLORIDE IRRI 500 ML 500 ML IR ONE (15:35)
[2019-10-31 15:43] LABS: Basophils % (Auto) 0.7 % (0.0-1.8); Eosinophils # (Auto) 0.1 K/mm3 (0.0-0.4); Hematocrit 39.2 % (35.5-45.6); Hemoglobin 13.4 gm/dl (11.8-15.2); Lymphocytes # (Auto) 0.8 K/mm3 (1.2-5.4); Lymphocytes % (Auto) 21.6 % (13.4-35.0); Mean Corpuscular HGB Conc 34 % (32-34); Mean Corpuscular Volume 105 fl (84-94); Monocytes # (Auto) 0.5 K/mm3 (0.0-0.8); Monocytes % (Auto) 14.7 % (0.0-7.3); Red Blood Count 3.74 M/mm3 (3.65-5.03); Red Cell Distribution Width 15.1 % (13.2-15.2)
[2019-10-31 15:48] LABS: Platelet Count 85 K/mm3 (140-440)
[2019-10-31 16:08] LABS: Alanine Aminotransferase 32 units/L (7-56); Albumin 2.9 g/dL (3.9-5); BUN/Creatinine Ratio 8; Blood Urea Nitrogen 7 mg/dL (9-20); Calcium 8.7 mg/dL (8.4-10.2); Hemolysis Index 7
[2019-10-31] MEDS ORDERED: NEOMY 3.5 MG/BACIT 400 UNITS/POLY B 5000 UNITS/GM OINT PACKET TP ONE (16:36)
--- NOTE | 2019-10-31 16:36 | Emergency Department Report ---
{null, ED Psych HPI - General Chief Complaint: Psych Stated Complaint: RT LAC TO FINGER Time Seen by Provider: 10/31/19 14:38 Source: patient Mode of arrival: Ambulatory - History of Present Illness Initial Comments: 64-year-old male with a past medical history of hepatitis C, liver cirrhosis, hypertension, GERD, asthma, and schizophrenia presents to the hospital complains of homicidal ideation and right hand laceration. Patient is right-hand dominant. Patient states he was washing dishes and arguing with his grandson and he became angry. He accidentally cut h his right index finger with a knife and denies intentional harm. Patient is currently calm and cooperative and states that he is glad that he had his laceration because it caused him to come to the ER instead of becoming more angry and possibly going to senior care. Complaint: suicidal ideation - Related Data Home Medications Medication Instructions Recorded Confirmed Last Taken Esomeprazole Magnesium [NexIUM] 20 mg PO BID 11/26/13 06/13/17 1 Day Ago ~06/12/17 nadoloL [Corgard] 20 mg PO QDAY 11/26/13 06/13/17 1 Day Ago ~06/12/17 Previous Rx's Medication Instructions Recorded Last Taken Type Spironolactone [Aldactone] 25 mg PO DAILY #30 tablet 03/23/15 1 Day Ago Rx ~06/12/17 predniSONE [Deltasone] 20 mg PO DAILY #5 tablet 03/26/19 Unknown Rx Benzonatate [Tessalon Perles] 100 mg PO Q8HR #30 capsule 06/18/19 Unknown Rx Cetirizine HCl [Zyrtec 10mg tab] 10 mg PO DAILY #30 tablet 06/18/19 Unknown Rx Doxycycline Hyclate [Doxycycline 100 mg PO Q12HR #20 tab 06/18/19 Unknown Rx Hyclate TAB] Allergies Allergy/AdvReac Type Severity Reaction Status Date / Time No Known Allergies Allergy Verified 11/25/16 12:03 ED Review of Systems ROS: Stated complaint: RT LAC TO FINGER Other details as noted in HPI Comment: All other systems reviewed and negative ED Past Medical Hx - Past Medical History Hx Hypertension: Yes Hx Congestive Heart Failure: No Hx Diabetes: No Hx GERD: Yes Hx Liver Disease: Yes (cirrhosis, hx of hep C-treated clear as of 03/2019) Hx Psychiatric Treatment: Yes (schizophrenia) Hx Asthma: No Hx COPD: No Additional medical history: HERNIA, hep c, asthma, htn, schizophrenia - Surgical History Additional Surgical History: Right arm surgery 2014, hernia repair - Social History Smoking Status: Unknown if ever smoked Substance Use Type: None - Medications Home Medications: Home Medications Medication Instructions Recorded Confirmed Last Taken Type Esomeprazole Magnesium [NexIUM] 20 mg PO BID 11/26/13 06/13/17 1 Day Ago History ~06/12/17 nadoloL [Corgard] 20 mg PO QDAY 11/26/13 06/13/17 1 Day Ago History ~06/12/17 Spironolactone [Aldactone] 25 mg PO DAILY #30 tablet 03/23/15 06/13/17 1 Day Ago Rx ~06/12/17 predniSONE [Deltasone] 20 mg PO DAILY #5 tablet 03/26/19 Unknown Rx Benzonatate [Tessalon Perles] 100 mg PO Q8HR #30 capsule 06/18/19 Unknown Rx Cetirizine HCl [Zyrtec 10mg tab] 10 mg PO DAILY #30 tablet 06/18/19 Unknown Rx Doxycycline Hyclate [Doxycycline 100 mg PO Q12HR #20 tab 06/18/19 Unknown Rx Hyclate TAB] ED Physical Exam - General Limitations: No Limitations - Other Other exam information: General: No acute distress Head: Atraumatic Eyes: normal appearance ENT: Moist mucous membranes Neck: Normal appearance, no midline tenderness Chest: Clear to auscultation bilaterally CV: Regular rate and rhythm Abdomen: Soft, normal bowel sounds, nontender, nondistended, no rebound or guarding Back: Normal inspection Extremity: right index finger laceration. Full range of motion of right finger, hand, and wrist. Minimal bleeding. Neuro: Alert O x 3, no facial asymmetry, speech clear, no gross motor sensory deficit Psych: initially agitated when speaking about the events that occurred prior to arrival and his grandson. Expresses homicidal ideation towards his grandson Skin: 1.5 cm laceration to palmar surface of right index finger. ED Course Vital Signs 10/31/19 10/31/19 10/31/19 14:38 14:51 15:22 Temperature 98.6 F 98.6 F 96.8 F L Pulse Rate 71 66 Respiratory 18 18 Rate Blood Pressure 143/91 137/82 [Right] O2 Sat by Pulse 100 99 Oximetry - Reevaluation(s) Reevaluation #1: 10/31/19 16:37 Initially patient expressed that he was homicidal to his grandson and he is glad that he had a laceration requiring him to come to the ED because otherwise he might ended up in senior care. Within 15 minutes of mental health assessment patient had calm down and states he is no longer homicidal towards his grandson. He feels like he is at peace now and does not want to harm himself or anybody else. Patient would not allow mental health dot net architect to obtain collateral information from the home. Patient informed me that grandson lives at home in the [facility]. I am concerned that if patient returned home to the grandson he might be triggered again and have recurrent homicidal ideation. Patient will be kept in the ED overnight for evaluation by psychiatrist in a.m. so that patient's behavior may also be observed to determine safe discharge back to his home and resolution of homicidal ideation. 10/31/19 17:05 Patient allow mental health provider to call the home and obtain collateral information. Spoke to patient's significant. Patient has been some conflict between the patient and her grandson since he has moved in almost a year ago. She feels comfortable allowing patient to return home and patient also states he no longer has homicidal ideation towards her grandson and was just upset in the moment. Patient will be discharged home - Laceration /Wound Repair Right Hand Wound Location: upper extremity Wound Length (cm): 1 (1.35cm) Wound's Depth, Shape: linear Wound Explored: clean Anesthesia: 1% Lidocaine Volume Anesthetic (ccs): 3 Wound Debrided: minimal Wound Repaired With: sutures Suture Size/Type: 4:0 Number of Sutures: 4 Layer Closure?: No Sterile Dressing Applied?: Yes ED Medical Decision Making - Lab Data Result diagrams: 10/31/19 15:16 10/31/19 15:16 Lab Results 10/31/19 10/31/19 10/31/19 Range/Units 15:16 15:16 15:16 WBC 3.5 L (4.5-11.0) K/mm3 RBC 3.74 (3.65-5.03) M/mm3 Hgb 13.4 (11.8-15.2) gm/dl Hct 39.2 (35.5-45.6) % MCV 105 H (84-94) fl MCH 36 H (28-32) pg MCHC 34 (32-34) % RDW 15.1 (13.2-15.2) % Plt Count 85 L (140-440) K/mm3 Lymph % (Auto) 21.6 (13.4-35.0) % [place] % (Auto) 14.7 H (0.0-7.3) % Eos % (Auto) 2.0 (0.0-4.3) % Baso % (Auto) 0.7 (0.0-1.8) % Lymph # 0.8 L (1.2-5.4) K/mm3 [place] # 0.5 (0.0-0.8) K/mm3 Eos # 0.1 (0.0-0.4) K/mm3 Baso # 0.0 (0.0-0.1) K/mm3 Seg Neutrophils % 61.0 (40.0-70.0) % Seg Neutrophils # 2.1 (1.8-7.7) K/mm3 Sodium 136 L (137-145) mmol/L Potassium 4.1 (3.6-5.0) mmol/L Chloride 104.2 (98-107) mmol/L Carbon Dioxide 20 L (22-30) mmol/L Anion Gap 16 mmol/L BUN 7 L (9-20) mg/dL Creatinine 0.9 (0.8-1.5) mg/dL Estimated GFR > 60 ml/min BUN/Creatinine Ratio 8 % Glucose 118 H (75-100) mg/dL Calcium 8.7 (8.4-10.2) mg/dL Total Bilirubin 2.70 H (0.1-1.2) mg/dL AST 53 H (5-40) units/L ALT 32 (7-56) units/L Alkaline Phosphatase 151 H (35-129) units/L Total Protein 7.6 (6.3-8.2) g/dL Albumin 2.9 L (3.9-5) g/dL Albumin/Globulin Ratio 0.6 % Urine Color (Yellow) Urine Turbidity (Clear) Urine pH (5.0-7.0) Ur Specific [place] (1.003-1.030) Urine Protein (Negative) mg/dL Urine Glucose (UA) (Negative) mg/dL Urine Ketones (Negative) mg/dL Urine Blood (Negative) Urine Nitrite (Negative) Urine Bilirubin (Negative) Urine Urobilinogen (<2.0) mg/dL Ur Leukocyte Esterase (Negative) Urine WBC (Auto) (0.0-6.0) /HPF Urine RBC (Auto) (0.0-6.0) /HPF U Epithel Cells (Auto) (0-13.0) /HPF Urine Mucus /HPF Urine Sperm (JAMMER OPERATOR) /HPF Salicylates < 0.3 L (2.8-20.0) mg/dL Acetaminophen (10.0-30.0) ug/mL Plasma/Serum Alcohol (0-0.07) % 10/31/19 10/31/19 10/31/19 Range/Units 15:16 15:16 Unknown WBC (4.5-11.0) K/mm3 RBC (3.65-5.03) M/mm3 Hgb (11.8-15.2) gm/dl Hct (35.5-45.6) % MCV (84-94) fl MCH (28-32) pg MCHC (32-34) % RDW (13.2-15.2) % Plt Count (140-440) K/mm3 Lymph % (Auto) (13.4-35.0) % [place] % (Auto) (0.0-7.3) % Eos % (Auto) (0.0-4.3) % Baso % (Auto) (0.0-1.8) % Lymph # (1.2-5.4) K/mm3 [place] # (0.0-0.8) K/mm3 Eos # (0.0-0.4) K/mm3 Baso # (0.0-0.1) K/mm3 Seg Neutrophils % (40.0-70.0) % Seg Neutrophils # (1.8-7.7) K/mm3 Sodium (137-145) mmol/L Potassium (3.6-5.0) mmol/L Chloride (98-107) mmol/L Carbon Dioxide (22-30) mmol/L Anion Gap mmol/L BUN (9-20) mg/dL Creatinine (0.8-1.5) mg/dL Estimated GFR ml/min BUN/Creatinine Ratio % Glucose (75-100) mg/dL Calcium (8.4-10.2) mg/dL Total Bilirubin (0.1-1.2) mg/dL AST (5-40) units/L ALT (7-56) units/L Alkaline Phosphatase (35-129) units/L Total Protein (6.3-8.2) g/dL Albumin (3.9-5) g/dL Albumin/Globulin Ratio % Urine Color Staci (Yellow) Urine Turbidity Clear (Clear) Urine pH 7.0 (5.0-7.0) Ur Specific [place] 1.017 (1.003-1.030) Urine Protein 30 mg/dl (Negative) mg/dL Urine Glucose (UA) Neg (Negative) mg/dL Urine Ketones Neg (Negative) mg/dL Urine Blood Neg (Negative) Urine Nitrite Neg (Negative) Urine Bilirubin Neg (Negative) Urine Urobilinogen 2.0 (<2.0) mg/dL Ur Leukocyte Esterase Neg (Negative) Urine WBC (Auto) 1.0 (0.0-6.0) /HPF Urine RBC (Auto) 2.0 (0.0-6.0) /HPF U Epithel Cells (Auto) < 1.0 (0-13.0) /HPF Urine Mucus 3+ /HPF Urine Sperm Few (JAMMER OPERATOR) /HPF Salicylates (2.8-20.0) mg/dL Acetaminophen < 5.0 L (10.0-30.0) ug/mL Plasma/Serum Alcohol < 0.01 (0-0.07) % - Medical Decision Making Patient is noted to have thrombocytopenia likely secondary to chronic liver disease cirrhosis/hepatitis. Patient had a right finger laceration (unintentional lac) repaired. Tetanus provided. Sutures need to be removed in 7 to 10 days. Patient will be discharged back home since he is not suicidal, homicidal, and is, cooperative in the ED. see note - Differential Diagnosis SI, HI, Critical Care Time: No Critical care attestation.: If time is entered above; I have spent that time in minutes in the direct care of this critically ill patient, excluding procedure time. ED Disposition Clinical Impression: Schizophrenia, Laceration of right index finger Disposition: DC-01 TO HOME OR SELFCARE Is pt being admited?: No Condition: Stable Instructions: Laceration (ED), Schizophrenia (ED) Additional Instructions: Your stitches should be removed in 7 to 10 days. Follow-up with your doctor or doctor/clinic provided. Return if symptoms worsen as indicated by your discharge instructions. Referrals: PRIMARY CAREMD [Primary Care Provider] - 3-5 Days ELINA GARRETT MD [Staff Physician] - 7-10 days [facility] [Provider Group] - 7-10 days [facility] [Outside] - 3-5 Days Time of Disposition: 17:40 }
[2019-10-31] MEDS ORDERED: BACITRACIN/POLYMYXIN B OINT 28.35 GM TP ONE (17:42)
== END 2019-10-31 18:05 | disposition home or self-care (01) ==
LOC: ED 12:36
DX: S61.210A Laceration without foreign body of right index finger without damage to nail, initial encounter (principal); F20.89 Other schizophrenia; X58.XXXA Exposure to other specified factors, initial encounter; Y93.89 Activity, other specified; Y92.89 Other specified places as the place of occurrence of the external cause; Y99.8 Other external cause status
CPT/HCPCS: 36415; 80053; 80320; 81001; 85025; 90471; 90715; A6250; G0480

== ENCOUNTER 2019-11-02 06:13 | Inpatient (IN) | payer MEDICAID, MEDICARE ==
[2019-11-02 09:24] LABS: Amphetamine Screen,Urine PRESUMPTIVE NEGATIVE; Benzodiazepines Screen,Urine PRESUMPTIVE NEGATIVE; Cannabinoid Screen,Urine PRESUMPTIVE NEGATIVE; Methadone Screen,Urine PRESUMPTIVE NEGATIVE; Opiate Screen,Urine PRESUMPTIVE NEGATIVE
[2019-11-02 09:25] LABS: Bilirubin,Urine NEG (Negative); Blood,Urine NEG (Negative); Color,Urine Yellow (Yellow); Mucus,Urine FEW /HPF; Protein,Urine <15 mg/dL mg/dL (Negative)
--- NOTE | 2019-11-02 09:25 | Emergency Department Report ---
ED General Adult HPI - General Chief complaint: Psych Stated complaint: RIGHT HAND/ RT INDEX FINGER PAIN AND SWELLING Time Seen by Provider: 11/02/19 07:53 Source: patient Mode of arrival: Ambulatory Limitations: No Limitations - History of Present Illness Initial comments: This is a 64-year-old man who reports that he essentially came here from what appeared to be a crack abuse situation. He states he had to drive here with one hand because he was having problems with a recent suture repair from a few days ago. He does not report fever or chills. He is very vague about his reason for coming. He does admit depression. He denies suicidal ideation. There appears to be a fairly high likelihood of some sort of secondary gain. He cannot really identify an issue consistent with psychiatric decompensation. He is not violent, suicidal, hallucinating or suffering from problems with his ADLs. He really has no active complaints on my encounter. -: unknown Location: right (Hand) Quality: other (Redness and swelling) Consistency: constant Associated Symptoms: denies other symptoms - Related Data Home Medications Medication Instructions Recorded Confirmed Last Taken Esomeprazole Magnesium [NexIUM] 20 mg PO BID 11/26/13 06/13/17 1 Day Ago ~06/12/17 nadoloL [Corgard] 20 mg PO QDAY 11/26/13 06/13/17 1 Day Ago ~06/12/17 Previous Rx's Medication Instructions Recorded Last Taken Type Spironolactone [Aldactone] 25 mg PO DAILY #30 tablet 03/23/15 1 Day Ago Rx ~06/12/17 predniSONE [Deltasone] 20 mg PO DAILY #5 tablet 03/26/19 Unknown Rx Benzonatate [Tessalon Perles] 100 mg PO Q8HR #30 capsule 06/18/19 Unknown Rx Cetirizine HCl [Zyrtec 10mg tab] 10 mg PO DAILY #30 tablet 06/18/19 Unknown Rx Doxycycline Hyclate [Doxycycline 100 mg PO Q12HR #20 tab 06/18/19 Unknown Rx Hyclate TAB] Allergies Allergy/AdvReac Type Severity Reaction Status Date / Time No Known Allergies Allergy Verified 11/25/16 12:03 ED Review of Systems ROS: Stated complaint: RIGHT HAND/ RT INDEX FINGER PAIN AND SWELLING Other details as noted in HPI Constitutional: denies: chills, fever Eyes: denies: eye pain, eye discharge, vision change ENT: denies: ear pain, throat pain Respiratory: denies: cough, shortness of breath, wheezing Cardiovascular: denies: chest pain, palpitations Endocrine: no symptoms reported Gastrointestinal: denies: abdominal pain, nausea, diarrhea Genitourinary: denies: urgency, dysuria Musculoskeletal: as per HPI, other. denies: back pain, joint swelling, arthralgia Skin: denies: rash, lesions Neurological: denies: headache, weakness, paresthesias Psychiatric: as per HPI, depression. denies: anxiety Hematological/Lymphatic: denies: easy bleeding, easy bruising ED Past Medical Hx - Past Medical History Previous Medical History?: Yes Hx Hypertension: Yes Hx Congestive Heart Failure: No Hx Diabetes: No Hx GERD: Yes Hx Liver Disease: Yes (cirrhosis, hx of hep C-treated clear as of 03/2019) Hx Psychiatric Treatment: Yes (schizophrenia) Hx Asthma: No Hx COPD: No Additional medical history: HERNIA, hep c, asthma, htn, schizophrenia - Surgical History Past Surgical History?: Yes Additional Surgical History: Right arm surgery 2013, hernia repair - Social History Smoking Status: Former Smoker Substance Use Type: None - Medications Home Medications: Home Medications Medication Instructions Recorded Confirmed Last Taken Type Esomeprazole Magnesium [NexIUM] 20 mg PO BID 11/26/13 06/13/17 1 Day Ago History ~06/12/17 nadoloL [Corgard] 20 mg PO QDAY 11/26/13 06/13/17 1 Day Ago History ~06/12/17 Spironolactone [Aldactone] 25 mg PO DAILY #30 tablet 03/23/15 06/13/17 1 Day Ago Rx ~06/12/17 predniSONE [Deltasone] 20 mg PO DAILY #5 tablet 03/26/19 Unknown Rx Benzonatate [Tessalon Perles] 100 mg PO Q8HR #30 capsule 06/18/19 Unknown Rx Cetirizine HCl [Zyrtec 10mg tab] 10 mg PO DAILY #30 tablet 06/18/19 Unknown Rx Doxycycline Hyclate [Doxycycline 100 mg PO Q12HR #20 tab 06/18/19 Unknown Rx Hyclate TAB] ED Physical Exam - General Limitations: No Limitations General appearance: alert, in no apparent distress - Head Head exam: Present: atraumatic, normocephalic. Absent: normal inspection - Eye Eye exam: Present: normal appearance, PERRL, EOMI. Absent: scleral icterus - ENT ENT exam: Present: mucous membranes moist - Neck Neck exam: Present: normal inspection. Absent: tenderness, meningismus - Respiratory Respiratory exam: Present: normal lung sounds bilaterally. Absent: respiratory distress - Cardiovascular Cardiovascular Exam: Present: regular rate, normal rhythm. Absent: systolic murmur, diastolic murmur, rubs, gallop - GI/Abdominal GI/Abdominal exam: Present: soft, normal bowel sounds. Absent: distended, tenderness, guarding, rebound, rigid - Rectal Rectal exam: Present: deferred - Extremities Exam Extremities exam: Present: other (Substantial erythema and 1+ edema involving the index finger and the dorsum of the hand. No signs of tenosynovitis.) - Back Exam Back exam: Present: normal inspection - Neurological Exam Neurological exam: Present: alert, oriented X3, CN II-XII intact. Absent: motor sensory deficit - Psychiatric Psychiatric exam: Present: flat affect, other (Loose associations) - Skin Skin exam: Present: warm, dry, intact, normal color. Absent: rash ED Course Vital Signs 11/02/19 11/02/19 06:30 08:29 Temperature 98.2 F Pulse Rate 82 Respiratory 20 18 Rate Blood Pressure 144/83 O2 Sat by Pulse 98 97 Oximetry - Reevaluation(s) Reevaluation #1: 64-year old man with hand infection. His x-ray does not show gas. He does not have tenosynovitis. I have requested that his sutures be removed. He is started on Zosyn and vancomycin. His hand should be elevated. Discussed with hospitalist. I think he will be appropriate for admission here with orthopedic consultation. 11/02/19 13:29 ED Medical Decision Making - Lab Data Result diagrams: 11/02/19 09:13 11/02/19 09:13 Laboratory Results - last 24 hr 11/02/19 11/02/19 11/02/19 09:13 09:13 09:13 WBC 8.8 RBC 3.72 Hgb 13.6 Hct 38.3 MCV 103 H MCH 37 H MCHC 35 H RDW 14.8 Plt Count 76 L Add Manual Diff Complete Total Counted 100 Seg Neuts % (Manual) 85.0 H Band Neutrophils % 1.0 Lymphocytes % (Manual) 9.0 L Reactive Lymphs % (Man) 0 Monocytes % (Manual) 3.0 Eosinophils % (Manual) 2.0 Basophils % (Manual) 0 Metamyelocytes % 0 Myelocytes % 0 Promyelocytes % 0 Blast Cells % 0 Nucleated RBC % Not Reportable Seg Neutrophils # Man 7.5 Band Neutrophils # 0.1 Lymphocytes # (Manual) 0.8 L Abs React Lymphs (Man) 0.0 Monocytes # (Manual) 0.3 Eosinophils # (Manual) 0.2 Basophils # (Manual) 0.0 Metamyelocytes # 0.0 Myelocytes # 0.0 Promyelocytes # 0.0 Blast Cells # 0.0 WBC Morphology Not Reportable Hypersegmented Neuts Not Reportable Hyposegmented Neuts Not Reportable Hypogranular Neuts Not Reportable Smudge Cells Not Reportable Toxic Granulation Not Reportable Toxic Vacuolation Not Reportable Dohle Bodies Not Reportable Pelger-Huet Anomaly Not Reportable [place] Rods Not Reportable Platelet Estimate Consistent w auto Clumped Platelets Not Reportable Plt Clumps, EDTA Not Reportable Large Platelets Not Reportable Giant Platelets Not Reportable Platelet Satelliting Not Reportable Plt Morphology Comment Not Reportable RBC Morphology Not Reportable Dimorphic RBCs Not Reportable Polychromasia Not Reportable Hypochromasia Few Poikilocytosis Not Reportable Anisocytosis Not Reportable Microcytosis Few Macrocytosis Not Reportable Spherocytes Not Reportable Pappenheimer Bodies Not Reportable Sickle Cells Not Reportable Target Cells Not Reportable Tear Drop Cells Not Reportable Ovalocytes Not Reportable Helmet Cells Not Reportable Rios-[place] Bodies Not Reportable [place] Rings Not Reportable Jaron Cells Not Reportable Bite Cells Not Reportable Crenated Cell Not Reportable Elliptocytes Not Reportable Acanthocytes (Spur) Not Reportable Rouleaux Not Reportable Hemoglobin C Crystals Not Reportable Schistocytes Not Reportable Malaria parasites Not Reportable Khari Bodies Not Reportable Hem Pathologist Commnt No PT 18.5 H INR 1.52 H APTT 39.1 H Sodium 136 L Potassium 4.2 Chloride 105.0 Carbon Dioxide 16 L Anion Gap 19 BUN 9 Creatinine 0.8 Estimated GFR > 60 BUN/Creatinine Ratio 11 Glucose 112 H Lactic Acid Calcium 8.6 Magnesium 1.70 Total Bilirubin 3.60 H Direct Bilirubin 1.1 H Indirect Bilirubin 2.5 AST 53 H ALT 31 Alkaline Phosphatase 113 Ammonia Total Creatine Kinase 421 H CK-MB (CK-2) 4.1 H CK-MB (CK-2) Rel Index 0.9 NT-Pro-B Natriuret Pep 106.6 Total Protein 7.5 Albumin 2.9 L Albumin/Globulin Ratio 0.6 Urine Color Urine Turbidity Urine pH Ur Specific [place] Urine Protein Urine Glucose (UA) Urine Ketones Urine Blood Urine Nitrite Urine Bilirubin Urine Urobilinogen Ur Leukocyte Esterase Urine WBC (Auto) Urine RBC (Auto) Urine Mucus Salicylates Urine Opiates Screen Urine Methadone Screen Ur Barbiturates Screen Ur Phencyclidine Scrn Ur Amphetamines Screen U Benzodiazepines Scrn Urine Cocaine Screen U Marijuana (THC) Screen Drugs of Abuse Note Plasma/Serum Alcohol 11/02/19 11/02/19 11/02/19 09:13 09:13 09:13 WBC RBC Hgb Hct MCV MCH MCHC RDW Plt Count Add Manual Diff Total Counted Seg Neuts % (Manual) Band Neutrophils % Lymphocytes % (Manual) Reactive Lymphs % (Man) Monocytes % (Manual) Eosinophils % (Manual) Basophils % (Manual) Metamyelocytes % Myelocytes % Promyelocytes % Blast Cells % Nucleated RBC % Seg Neutrophils # Man Band Neutrophils # Lymphocytes # (Manual) Abs React Lymphs (Man) Monocytes # (Manual) Eosinophils # (Manual) Basophils # (Manual) Metamyelocytes # Myelocytes # Promyelocytes # Blast Cells # WBC Morphology Hypersegmented Neuts Hyposegmented Neuts Hypogranular Neuts Smudge Cells Toxic Granulation Toxic Vacuolation Dohle Bodies Pelger-Huet Anomaly [place] Rods Platelet Estimate Clumped Platelets Plt Clumps, EDTA Large Platelets Giant Platelets Platelet Satelliting Plt Morphology Comment RBC Morphology Dimorphic RBCs Polychromasia Hypochromasia Poikilocytosis Anisocytosis Microcytosis Macrocytosis Spherocytes Pappenheimer Bodies Sickle Cells Target Cells Tear Drop Cells Ovalocytes Helmet Cells Rios-[place] Bodies [place] Rings Jaron Cells Bite Cells Crenated Cell Elliptocytes Acanthocytes (Spur) Rouleaux Hemoglobin C Crystals Schistocytes Malaria parasites Khari Bodies Hem Pathologist Commnt PT INR APTT Sodium Potassium Chloride Carbon Dioxide Anion Gap BUN Creatinine Estimated GFR BUN/Creatinine Ratio Glucose Lactic Acid Calcium Magnesium Total Bilirubin Direct Bilirubin Indirect Bilirubin AST ALT Alkaline Phosphatase Ammonia 37.0 Total Creatine Kinase CK-MB (CK-2) CK-MB (CK-2) Rel Index NT-Pro-B Natriuret Pep Total Protein Albumin Albumin/Globulin Ratio Urine Color Urine Turbidity Urine pH Ur Specific [place] Urine Protein Urine Glucose (UA) Urine Ketones Urine Blood Urine Nitrite Urine Bilirubin Urine Urobilinogen Ur Leukocyte Esterase Urine WBC (Auto) Urine RBC (Auto) Urine Mucus Salicylates < 0.3 L Urine Opiates Screen Urine Methadone Screen Ur Barbiturates Screen Ur Phencyclidine Scrn Ur Amphetamines Screen U Benzodiazepines Scrn Urine Cocaine Screen U Marijuana (THC) Screen Drugs of Abuse Note Plasma/Serum Alcohol < 0.01 11/02/19 11/02/19 11/02/19 11:29 Unknown Unknown WBC RBC Hgb Hct MCV MCH MCHC RDW Plt Count Add Manual Diff Total Counted Seg Neuts % (Manual) Band Neutrophils % Lymphocytes % (Manual) Reactive Lymphs % (Man) Monocytes % (Manual) Eosinophils % (Manual) Basophils % (Manual) Metamyelocytes % Myelocytes % Promyelocytes % Blast Cells % Nucleated RBC % Seg Neutrophils # Man Band Neutrophils # Lymphocytes # (Manual) Abs React Lymphs (Man) Monocytes # (Manual) Eosinophils # (Manual) Basophils # (Manual) Metamyelocytes # Myelocytes # Promyelocytes # Blast Cells # WBC Morphology Hypersegmented Neuts Hyposegmented Neuts Hypogranular Neuts Smudge Cells Toxic Granulation Toxic Vacuolation Dohle Bodies Pelger-Huet Anomaly [place] Rods Platelet Estimate Clumped Platelets Plt Clumps, EDTA Large Platelets Giant Platelets Platelet Satelliting Plt Morphology Comment RBC Morphology Dimorphic RBCs Polychromasia Hypochromasia Poikilocytosis Anisocytosis Microcytosis Macrocytosis Spherocytes Pappenheimer Bodies Sickle Cells Target Cells Tear Drop Cells Ovalocytes Helmet Cells Rios-[place] Bodies [place] Rings [place] Cells Bite Cells Crenated Cell Elliptocytes Acanthocytes (Spur) Rouleaux Hemoglobin C Crystals Schistocytes Malaria parasites Khari Bodies Hem Pathologist Commnt PT INR APTT Sodium Potassium Chloride Carbon Dioxide Anion Gap BUN Creatinine Estimated GFR BUN/Creatinine Ratio Glucose Lactic Acid 1.70 Calcium Magnesium Total Bilirubin Direct Bilirubin Indirect Bilirubin AST ALT Alkaline Phosphatase Ammonia Total Creatine Kinase CK-MB (CK-2) CK-MB (CK-2) Rel Index NT-Pro-B Natriuret Pep Total Protein Albumin Albumin/Globulin Ratio Urine Color Yellow Urine Turbidity Clear Urine pH 6.0 Ur Specific [place] 1.013 Urine Protein <15 mg/dl Urine Glucose (UA) Neg Urine Ketones Neg Urine Blood Neg Urine Nitrite Neg Urine Bilirubin Neg Urine Urobilinogen 2.0 Ur Leukocyte Esterase Neg Urine WBC (Auto) 1.0 Urine RBC (Auto) 6.0 Urine Mucus Few Salicylates Urine Opiates Screen Presumptive negative Urine Methadone Screen Presumptive negative Ur Barbiturates Screen Presumptive negative Ur Phencyclidine Scrn Presumptive negative Ur Amphetamines Screen Presumptive negative U Benzodiazepines Scrn Presumptive negative Urine Cocaine Screen Presumptive positive U Marijuana (THC) Screen Presumptive negative Drugs of Abuse Note Disclamer Plasma/Serum Alcohol Critical care attestation.: If time is entered above; I have spent that time in minutes in the direct care of this critically ill patient, excluding procedure time. ED Disposition Clinical Impression: Cellulitis of hand Cirrhosis Qualifiers: Hepatic cirrhosis type: other cirrhosis Qualified Code(s): K74.69 - Other cirrhosis of liver Schizophrenia Qualifiers: Schizophrenia type: unspecified Qualified Code(s): F20.9 - Schizophrenia, unspecified Disposition: 09 OP ADMIT IP TO THIS HOSP Is pt being admited?: No Does the pt Need Aspirin: No Condition: Stable Referrals: PRIMARY CARE, [Primary Care Provider] - 3-5 Days Time of Disposition: 14:05
[2019-11-02 09:40] LABS: Cocaine Screen,Urine PRESUMPTIVE POSITIVE
[2019-11-02 09:56] LABS: Creatine Kinase MB 4.1 ng/mL (0.0-4.0)
[2019-11-02 09:58] LABS: Alanine Aminotransferase 31 units/L (7-56); Albumin 2.9 g/dL (3.9-5); BUN/Creatinine Ratio 11; Bilirubin,Direct 1.1 mg/dL (0-0.2); Blood Urea Nitrogen 9 mg/dL (9-20); Calcium 8.6 mg/dL (8.4-10.2); Hemolysis Index 15
[2019-11-02 10:17] LABS: Hematocrit 38.3 % (35.5-45.6); Hemoglobin 13.6 gm/dl (11.8-15.2); Mean Corpuscular HGB Conc 35 % (32-34); Mean Corpuscular Volume 103 fl (84-94); Red Blood Count 3.72 M/mm3 (3.65-5.03); Red Cell Distribution Width 14.8 % (13.2-15.2)
[2019-11-02 10:20] LABS: Platelet Count 76 K/mm3 (140-440)
[2019-11-02 10:27] LABS: INR 1.52 (0.87-1.13)
[2019-11-02 10:28] LABS: Partial Thromboplastin Time 39.1 Sec. (24.2-36.6)
[2019-11-02 11:22] LABS: Band Neutrophils # (Manual) 0.1 K/mm3; Basophils % (Manual) 0 % (0.0-1.8); Total Cells Counted 100
[2019-11-02 11:23] LABS: Hypochromasia Few; Platelet Estimate Consistent w Auto
--- NOTE | 2019-11-02 11:43 | XRay Report ---
Right hand-2 views INDICATION: swelling infection wound. COMPARISON: None. IMPRESSION: Mild soft tissue swelling along the dorsum of the hand to the level of the metacarpal he ads with no acute osseous abnormality. Mild degenerative changes throughout the hand, greatest at th e thumb CMC joint. No acute fracture, subcutaneous gas, or radiopaque foreign body. Signer Name: Lazaro George MD Signed: 11/02/2019 11:39 AM Workstation Name: [id number]
[2019-11-02] MEDS ORDERED: PIPERACILLIN/TAZOBACTAM 3.375 3.375 GM/50 ML BAG IV ONE (12:13)
[2019-11-02] MEDS ORDERED: VANCOMYCIN 2,000 MG in SODIUM CHLORIDE 0.9% 500 ML 500 ML IV ONE (13:00)
[2019-11-02] MEDS ORDERED: VANCOMYCIN PHARMACY TO DOSE IV SCH (13:00)
[2019-11-02] MEDS ORDERED: ALBUTEROL 2.5 MG/3 ML NEBU IH PRN (14:00)
--- NOTE | 2019-11-02 14:06 | History and Physical Report ---
History of Present Illness Chief complaint: My hand hurts History of present illness: 64-year-old male with Obesity, GERD, HTN, HCV S/P Full course treatment currently in remission, Cirrhosis, Schizophrenia, Cocaine Dependence presents to ED for evaluation. Patient represents to [facility] for reevaluation. Patient's last presentation was 2 days ago. At that time patient was seen and evaluated for a right index finger laceration which was sutured and the patient was released with outpatient follow-up care. Patient states that he has experienced right finger swelling and tenderness over the past 2 days with progressively worsening symptoms over the time same timeframe. Patient transported to [facility] via private vehicle for further evaluation and care. Patient seen and evaluated in the emergency department. Lab and imaging studies reviewed. Patient results discussed with patient and family. Patient found to have right hand cellulitis. Patient placed in observation status and admitted to medical floor for further treatment and evaluation. Patient denies fever, chills, chest pain, productive cough, right hand weakness, loss of sensation in the right hand or index finger, pain with mobility, trauma to the right hand, or recent ill contacts. Patient found to have suicidal ideation. Mental health consulted and patient was subsequently placed on 1013. No prior admission for review. No medication list ed at time of admission for reconciliation. Past History Past Medical History: GERD, hepatitis, hypertension, other (See HPI) Past Surgical History: hernia repair, Other (Right arm surgery) Social history: single Family history: hypertension Medications and Allergies Allergies Allergy/AdvReac Type Severity Reaction Status Date / Time No Known Allergies Allergy Verified 11/25/16 12:03 Home Medications Medication Instructions Recorded Confirmed Last Taken Type Esomeprazole Magnesium [NexIUM] 20 mg PO BID 11/26/13 06/13/17 1 Day Ago History ~06/12/17 nadoloL [Corgard] 20 mg PO QDAY 11/26/13 06/13/17 1 Day Ago History ~06/12/17 Spironolactone [Aldactone] 25 mg PO DAILY #30 tablet 03/23/15 06/13/17 1 Day Ago Rx ~06/12/17 predniSONE [Deltasone] 20 mg PO DAILY #5 tablet 03/26/19 Unknown Rx Benzonatate [Tessalon Perles] 100 mg PO Q8HR #30 capsule 06/18/19 Unknown Rx Cetirizine HCl [Zyrtec 10mg tab] mg PO DAILY #30 tablet 06/18/19 Unknown Rx Doxycycline Hyclate [Doxycycline 100 mg PO Q12HR #20 tab 06/18/19 Unknown Rx Hyclate TAB] Active Meds: Active Medications Acetaminophen (Tylenol) 650 mg PO Q4H PRN PRN Reason: Pain MILD(1-3)/Fever >100.5/TAYLOR Albuterol (Proventil) 2.5 mg IH Q4HRT PRN PRN Reason: Shortness Of Breath Benzonatate (Tessalon Perles) 100 mg PO Q8HR [facility] Cetirizine HCl (Cetirizine) 10 mg PO DAILY [facility] Vancomycin HCl 2,000 mg/ (Sodium Chloride) 540 mls @ 250 mls/hr IV ONCE ONE Stop: 11/02/19 15:09 Last Admin: 11/02/19 12:50 Dose: 250 mls/hr Documented by: Vancomycin HCl 2,000 mg/ (Sodium Chloride) 540 mls @ 250 mls/hr IV Q12H [facility] Ibuprofen (Ibuprofen) 600 mg PO Q8H [facility] Stop: 11/04/19 13:59 Miscellaneous Medication (Esomeprazole Magnesium [Nexium]) 20 mg PO BID [facility] Nadolol (Corgard) 20 mg PO QDAY [facility] Ondansetron HCl (Zofran) 4 mg IV Q8H PRN PRN Reason: Nausea And Vomiting Sodium Chloride (Sodium Chloride Flush Syringe 10 Ml) 10 ml IV BID [facility] Sodium Chloride (Sodium Chloride Flush Syringe 10 Ml) 10 ml IV PRN PRN PRN Reason: LINE FLUSH Spironolactone (Aldactone) 25 mg PO DAILY [facility] Review of Systems Constitutional: other (Right hand index finger pain), no weight loss, no weight gain, no fever, no chills Ears, nose, mouth and throat: no ear pain, no ear discharge, no tinnitis, no decreased hearing, no nasal congestion Cardiovascular: no chest pain, no orthopnea, no palpitations, no rapid/irregular heart beat, no edema Respiratory: no cough, no cough with sputum, no excessive sputum, no shortness of breath Gastrointestinal: no abdominal pain, no nausea, no vomiting, no diarrhea, no constipation, no change in bowel habits Genitourinary Male: no dysuria, no hematuria, no flank pain, no discharge, no urinary frequency, no urinary hesitancy Rectal: no pain, no incontinence, no bleeding Musculoskeletal: no neck stiffness, no shooting arm pain, no low back pain, no leg numbness/tingling Integumentary: no rash, no pruritis, no redness, no sores, no wounds, no jaundice Neurological: no transient paralysis, no paralysis, no weakness Psychiatric: no anxiety, no memory loss, no change in sleep habits, no sleep disturbances, no hypersomnia, no change in appetite Endocrine: no cold intolerance, no heat intolerance, no polyphagia, no excessive thirst, no polydipsia, no nocturia, no excessive sweating Hematologic/Lymphatic: no easy bruising, no easy bleeding, no lymphadenopathy, no lymphedema Allergic/Immunologic: no urticaria, no allergic rhinitis, no anaphylaxis, no angioedema Exam - Constitutional Vitals: Temp Pulse Resp BP Pulse Ox 98.2 F 82 18 144/83 97 11/02/19 06:30 11/02/19 06:30 11/02/19 08:29 11/02/19 06:30 11/02/19 08:29 General appearance: Present: mild distress, obese - EENT Eyes: Present: PERRL ENT: hearing intact, clear oral mucosa - Neck Neck: Present: supple, normal ROM - Respiratory Respiratory effort: normal Respiratory: bilateral: CTA - Cardiovascular Heart Sounds: Present: S1 & S2. Absent: rub, click - Extremities Extremities: pulses symmetrical, No edema Extremity abnormal: erythema, other (Right index finger) Peripheral Pulses: within normal limits - Abdominal General gastrointestinal: Present: soft, non-tender, non-distended, normal bowel sounds Male genitourinary: Present: normal - Integumentary Integumentary: Present: clear, warm, dry - Musculoskeletal Musculoskeletal: gait normal, strength equal bilaterally - Psychiatric Psychiatric: appropriate mood/affect, intact judgment & insight - Neurologic Neurologic: CNII-XII intact, moves all extremities Results - Labs CBC & Chem 7: 11/02/19 09:13 11/02/19 09:13 Labs: Abnormal lab results 11/02/19 11/02/19 11/02/19 Range/Units 09:13 09:13 09:13 MCV 103 H (84-94) fl MCH 37 H (28-32) pg MCHC 35 H (32-34) % Plt Count 76 L (140-440) K/mm3 Seg Neuts % (Manual) 85.0 H (40.0-70.0) % Lymphocytes % (Manual) 9.0 L (13.4-35.0) % Lymphocytes # (Manual) 0.8 L (1.2-5.4) K/mm3 PT 18.5 H (12.2-14.9) Sec. INR 1.52 H (0.87-1.13) APTT 39.1 H (24.2-36.6) Sec. Sodium 136 L (137-145) mmol/L Carbon Dioxide 16 L (22-30) mmol/L Glucose 112 H (75-100) mg/dL Total Bilirubin 3.60 H (0.1-1.2) mg/dL Direct Bilirubin 1.1 H (0-0.2) mg/dL AST 53 H (5-40) units/L Total Creatine Kinase 421 H (55-170) units/L CK-MB (CK-2) 4.1 H (0.0-4.0) ng/mL Albumin 2.9 L (3.9-5) g/dL Salicylates (2.8-20.0) mg/dL 11/02/19 Range/Units 09:13 MCV (84-94) fl MCH (28-32) pg MCHC (32-34) % Plt Count (140-440) K/mm3 Seg Neuts % (Manual) (40.0-70.0) % Lymphocytes % (Manual) (13.4-35.0) % Lymphocytes # (Manual) (1.2-5.4) K/mm3 PT (12.2-14.9) Sec. INR (0.87-1.13) APTT (24.2-36.6) Sec. Sodium (137-145) mmol/L Carbon Dioxide (22-30) mmol/L Glucose (75-100) mg/dL Total Bilirubin (0.1-1.2) mg/dL Direct Bilirubin (0-0.2) mg/dL AST (5-40) units/L Total Creatine Kinase (55-170) units/L CK-MB (CK-2) (0.0-4.0) ng/mL Albumin (3.9-5) g/dL Salicylates < 0.3 L (2.8-20.0) mg/dL Assessment and Plan - Patient Problems (1) Cellulitis of hand Current Visit: Yes Status: Acute Plan to address problem: IV antibiotic, CBC, CMP, right hand x-ray, cold compress every shift, orthopedic surgery service consulted in ED. Patient has palpable pulses distally with intact sensation without neurologic deficit to right hand and index finger. No evidence or physical exam findings suggestive of tenosynovitis. (2) Schizophrenia Current Visit: Yes Status: Acute Qualifiers: Schizophrenia type: unspecified Qualified Code(s): F20.9 - Schizophrenia, unspecified Plan to address problem: Mental health consulted in ED, [address] Further management as per mental health service. (3) Hypertension Current Visit: Yes Status: Acute Qualifiers: Hypertension type: essential hypertension Qualified Code(s): I10 - Essential (primary) hypertension Plan to address problem: Monitor blood pressure every shift, continue medical management. (4) GERD (gastroesophageal reflux disease) Current Visit: Yes Status: Acute Qualifiers: Esophagitis presence: without esophagitis Qualified Code(s): K21.9 - Gastr o-esophageal reflux disease without esophagitis Plan to address problem: PPI therapy, supportive care. Continue medical management. (5) Cocaine dependence Current Visit: Yes Status: Acute Qualifiers: Complication of substance-induced condition: uncomplicated Plan to address problem: Supportive care, patient counseled regarding abstinence from cocaine, behavior change counseling, +15 minutes. (6) DVT prophylaxis Current Visit: Yes Status: Acute Plan to address problem: SCD to bilateral lower extremities while in bed, patient is ambulatory. (7) Advance care planning Current Visit: Yes Status: Acute Plan to address problem: Patient is full code, disease education conducted, patient and his girlfriend acknowledged understanding and agreement with care plan. +30 minutes
[2019-11-02] MEDS ORDERED: ONDANSETRON 4 MG/2 ML INJ IV PRN (15:00)
[2019-11-02] MEDS ORDERED: ACETAMINOPHEN 325 MG TAB PO PRN (15:00)
[2019-11-02] MEDS ORDERED: IBUPROFEN 600 MG TAB PO ONE (16:25)
[2019-11-02] MEDS: IBUPROFEN 600 MG TAB PO SCH ×2 (16:29→21:00)
[2019-11-02] MEDS ORDERED: ACETAMINOPHEN 325 MG TAB ONE (19:53)
[2019-11-02] MEDS: BENZONATATE 100 MG CAP PO SCH (21:00)
[2019-11-02] MEDS: PANTOPRAZOLE 20 MG TAB PO SCH (21:01)
[2019-11-02] MEDS ORDERED: ESOMEPRAZOLE MAGNESIUM 20 MG PO SCH (22:00)
[2019-11-02] MEDS ORDERED: diphenhydrAMINE 25 MG CAP PO PRN (22:43)
[2019-11-03] MEDS ORDERED: VANCOMYCIN 2,000 MG in SODIUM CHLORIDE 0.9% 500 ML 500 ML IV SCH (02:00)
[2019-11-03 04:26] LABS: Hematocrit 36.9 % (35.5-45.6); Hemoglobin 12.6 gm/dl (11.8-15.2); Mean Corpuscular HGB Conc 34 % (32-34); Mean Corpuscular Volume 104 fl (84-94); Red Blood Count 3.54 M/mm3 (3.65-5.03); Red Cell Distribution Width 14.4 % (13.2-15.2)
[2019-11-03 04:30] LABS: Platelet Count 65 K/mm3 (140-440)
[2019-11-03 04:50] LABS: Alanine Aminotransferase 24 units/L (7-56); Albumin 2.4 g/dL (3.9-5); BUN/Creatinine Ratio 10; Blood Urea Nitrogen 10 mg/dL (9-20); Calcium 7.8 mg/dL (8.4-10.2); Hemolysis Index 2
[2019-11-03 06:05] LABS: Basophils % (Manual) 0 % (0.0-1.8); Eosinophils % (Manual) 0 % (0.0-4.3); Total Cells Counted 100
[2019-11-03 06:06] LABS: Platelet Estimate Consistent w Auto
[2019-11-03] MEDS: BENZONATATE 100 MG CAP PO SCH ×3 (07:42→22:19)
[2019-11-03] MEDS: IBUPROFEN 600 MG TAB PO SCH ×3 (07:44→22:18)
[2019-11-03] MEDS: CETIRIZINE 10 MG TAB PO SCH (09:50)
[2019-11-03] MEDS: PANTOPRAZOLE 20 MG TAB PO SCH ×2 (09:50→22:17)
[2019-11-03] MEDS: NADOLOL 20 MG TAB PO SCH (09:51)
[2019-11-03] MEDS: SPIRONOLACTONE 25 MG TAB PO SCH (09:53)
--- NOTE | 2019-11-03 10:59 | Progress Note ---
Assessment and Plan Assessment and plan: Right hand cellulitis. Continue IV antibiotics. Schizophrenia. Continue per psychiatry. [address] Hypertension. Continue antihypertensive medications. GERD. Continue PPI. Cocaine dependence. Withdrawal precautions and supportive care. DVT prophylaxis. Continue SCDs. History Interval history: No new issues overnight. Hospitalist Physical - Constitutional Vitals: Temp Pulse Resp BP Pulse Ox 98.3 F 56 L 16 118/67 100 11/03/19 07:57 11/03/19 09:51 11/03/19 07:57 11/03/19 09:53 11/03/19 09:51 General appearance: Present: no acute distress, obese - EENT Eyes: Present: PERRL, EOM intact ENT: hearing intact, clear oral mucosa, dentition normal - Neck Neck: Present: supple, normal ROM - Respiratory Respiratory effort: normal Respiratory: bilateral: CTA - Cardiovascular Rhythm: regular Heart Sounds: Present: S1 & S2. Absent: gallop, rub - Extremities Extremities: no ischemia, No edema, Full ROM - Abdominal General gastrointestinal: soft, non-tender, non-distended, normal bowel sounds - Integumentary Integumentary: Present: clear, warm, dry - Neurologic Neurologic: CNII-XII intact, moves all extremities JASON score - Jason Score Age > 65: (0) No Aspirin use within the Past 7 Days: (0) No 3 or more CAD Risk Factors: (0) No 2 or more Angina events in past 24 hrs: (1) Yes Known CAD with more than 50% Stenosis: (0) No Elevated Cardiac Markers: (0) No ST Deviation Greater than 0.5mm: (0) No JASON Score: 1 Results - Labs CBC & Chem 7: 11/03/19 04:01 11/03/19 04:01 Labs: Laboratory Last Values WBC 5.2 K/mm3 (4.5-11.0) 11/03/19 04:01 RBC 3.54 M/mm3 (3.65-5.03) L 11/03/19 04:01 Hgb 12.6 gm/dl (11.8-15.2) 11/03/19 04:01 Hct 36.9 % (35.5-45.6) 11/03/19 04:01 MCV 104 fl (84-94) H 11/03/19 04:01 MCH 36 pg (28-32) H 11/03/19 04:01 MCHC 34 % (32-34) 11/03/19 04:01 RDW 14.4 % (13.2-15.2) 11/03/19 04:01 Plt Count 65 K/mm3 (140-440) L 11/03/19 04:01 [place] % (Auto) [employer] 11/03/19 04:01 Add Manual Diff Complete 11/03/19 04:01 Total Counted 100 11/03/19 04:01 Seg Neuts % (Manual) 77.0 % (40.0-70.0) H 11/03/19 04:01 Band Neutrophils % 0 % 11/03/19 04:01 Lymphocytes % (Manual) 21.0 % (13.4-35.0) 11/03/19 04:01 Reactive Lymphs % (Man) 0 % 11/03/19 04:01 Monocytes % (Manual) 2.0 % (0.0-7.3) 11/03/19 04:01 Eosinophils % (Manual) 0 % (0.0-4.3) 11/03/19 04:01 Basophils % (Manual) 0 % (0.0-1.8) 11/03/19 04:01 Metamyelocytes % 0 % 11/03/19 04:01 Myelocytes % 0 % 11/03/19 04:01 Promyelocytes % 0 % 11/03/19 04:01 Blast Cells % 0 % 11/03/19 04:01 Nucleated RBC % Not Reportable 11/03/19 04:01 Seg Neutrophils # Man 4.0 K/mm3 (1.8-7.7) 11/03/19 04:01 Band Neutrophils # 0.0 K/mm3 11/03/19 04:01 Lymphocytes # (Manual) 1.1 K/mm3 (1.2-5.4) L 11/03/19 04:01 Abs React Lymphs (Man) 0.0 K/mm3 11/03/19 04:01 Monocytes # (Manual) 0.1 K/mm3 (0.0-0.8) 11/03/19 04:01 Eosinophils # (Manual) 0.0 K/mm3 (0.0-0.4) 11/03/19 04:01 Basophils # (Manual) 0.0 K/mm3 (0.0-0.1) 11/03/19 04:01 Metamyelocytes # 0.0 K/mm3 11/03/19 04:01 Myelocytes # 0.0 K/mm3 11/03/19 04:01 Promyelocytes # 0.0 K/mm3 11/03/19 04:01 Blast Cells # 0.0 K/mm3 11/03/19 04:01 WBC Morphology Not Reportable 11/03/19 04:01 Hypersegmented Neuts Not Reportable 11/03/19 04:01 Hyposegmented Neuts Not Reportable 11/03/19 04:01 Hypogranular Neuts Not Reportable 11/03/19 04:01 Smudge Cells Not Reportable 11/03/19 04:01 Toxic Granulation Not Reportable 11/03/19 04:01 Toxic Vacuolation Not Reportable 11/03/19 04:01 Dohle Bodies Not Reportable 11/03/19 04:01 Pelger-Huet Anomaly Not Reportable 11/03/19 04:01 Gordo Rods Not Reportable 11/03/19 04:01 Platelet Estimate Consistent w auto 11/03/19 04:01 Clumped Platelets Not Reportable 11/03/19 04:01 Plt Clumps, EDTA Not Reportable 11/03/19 04:01 Large Platelets Not Reportable 11/03/19 04:01 Giant Platelets Not Reportable 11/03/19 04:01 Platelet Satelliting Not Reportable 11/03/19 04:01 Plt Morphology Comment Not Reportable 11/03/19 04:01 RBC Morphology Not Reportable 11/03/19 04:01 Dimorphic RBCs Not Reportable 11/03/19 04:01 Polychromasia Not Reportable 11/03/19 04:01 Hypochromasia Not Reportable 11/03/19 04:01 Poikilocytosis Not Reportable 11/03/19 04:01 Anisocytosis Not Reportable 11/03/19 04:01 Microcytosis Not Reportable 11/03/19 04:01 Macrocytosis Not Reportable 11/03/19 04:01 Spherocytes Not Reportable 11/03/19 04:01 Pappenheimer Bodies Not Reportable 11/03/19 04:01 Sickle Cells Not Reportable 11/03/19 04:01 Target Cells Not Reportable 11/03/19 04:01 Tear Drop Cells Not Reportable 11/03/19 04:01 Ovalocytes Not Reportable 11/03/19 04:01 Helmet Cells Not Reportable 11/03/19 04:01 [place] Bodies Not Reportable 11/03/19 04:01 [place] Rings Not Reportable 11/03/19 04:01 [place] Cells Not Reportable 11/03/19 04:01 Bite Cells Not Reportable 11/03/19 04:01 Crenated Cell Not Reportable 11/03/19 04:01 Elliptocytes Not Reportable 11/03/19 04:01 Acanthocytes (Spur) Not Reportable 11/03/19 04:01 Rouleaux Not Reportable 11/03/19 04:01 Hemoglobin C Crystals Not Reportable 11/03/19 04:01 Schistocytes Not Reportable 11/03/19 04:01 Malaria parasites Not Reportable 11/03/19 04:01 Khari Bodies Not Reportable 11/03/19 04:01 Hem Pathologist Commnt No 11/03/19 04:01 PT 18.5 Sec. (12.2-14.9) H 11/02/19 09:13 INR 1.52 (0.87-1.13) H 11/02/19 09:13 APTT 39.1 Sec. (24.2-36.6) H 11/02/19 09:13 Sodium 137 mmol/L (137-145) 11/03/19 04:01 Potassium 4.0 mmol/L (3.6-5.0) 11/03/19 04:01 Chloride 107.0 mmol/L (98-107) 11/03/19 04:01 Carbon Dioxide 20 mmol/L (22-30) L 11/03/19 04:01 Anion Gap 14 mmol/L 11/03/19 04:01 BUN 10 mg/dL (9-20) 11/03/19 04:01 Creatinine 1.0 mg/dL (0.8-1.5) 11/03/19 04:01 Estimated GFR > 60 ml/min 11/03/19 04:01 BUN/Creatinine Ratio 10 % 11/03/19 04:01 Glucose 103 mg/dL (75-100) H 11/03/19 04:01 Lactic Acid 1.70 mmol/L (0.7-2.0) 11/02/19 11:29 Calcium 7.8 mg/dL (8.4-10.2) L 11/03/19 04:01 Magnesium 1.70 mg/dL (1.7-2.3) 11/02/19 09:13 Total Bilirubin 2.20 mg/dL (0.1-1.2) H 11/03/19 04:01 Direct Bilirubin 1.1 mg/dL (0-0.2) H 11/02/19 09:13 Indirect Bilirubin 2.5 mg/dL 11/02/19 09:13 AST 41 units/L (5-40) H 11/03/19 04:01 ALT 24 units/L (7-56) 11/03/19 04:01 Alkaline Phosphatase 113 units/L (35-129) 11/03/19 04:01 Ammonia 37.0 umol/L (25-60) 11/02/19 09:13 Total Creatine Kinase 421 units/L (55-170) H 11/02/19 09:13 CK-MB (CK-2) 4.1 ng/mL (0.0-4.0) H 11/02/19 09:13 CK-MB (CK-2) Rel Index 0.9 (0-4) 11/02/19 09:13 NT-Pro-B Natriuret Pep 106.6 pg/mL (0-900) 11/02/19 09:13 Total Protein 6.2 g/dL (6.3-8.2) L 11/03/19 04:01 Albumin 2.4 g/dL (3.9-5) L 11/03/19 04:01 Albumin/Globulin Ratio 0.6 % 11/03/19 04:01 Urine Color Yellow (Yellow) 11/02/19 Unknown Urine Turbidity Clear (Clear) 11/02/19 Unknown Urine pH 6.0 (5.0-7.0) 11/02/19 Unknown Ur Specific [place] 1.013 (1.003-1.030) 11/02/19 Unknown Urine Protein <15 mg/dl mg/dL (Negative) 11/02/19 Unknown Urine Glucose (UA) Neg mg/dL (Negative) 11/02/19 Unknown Urine Ketones Neg mg/dL (Negative) 11/02/19 Unknown Urine Blood Neg (Negative) 11/02/19 Unknown Urine Nitrite Neg (Negative) 11/02/19 Unknown Urine Bilirubin Neg (Negative) 11/02/19 Unknown Urine Urobilinogen 2.0 mg/dL (<2.0) 11/02/19 Unknown Ur Leukocyte Esterase Neg (Negative) 11/02/19 Unknown Urine WBC (Auto) 1.0 /HPF (0.0-6.0) 11/02/19 Unknown Urine RBC (Auto) 6.0 /HPF (0.0-6.0) 11/02/19 Unknown Urine Mucus Few /HPF 11/02/19 Unknown Salicylates < 0.3 mg/dL (2.8-20.0) L 11/02/19 09:13 Urine Opiates Screen Presumptive negative 11/02/19 Unknown Urine Methadone Screen Presumptive negative 11/02/19 Unknown Ur Barbiturates Screen Presumptive negative 11/02/19 Unknown Ur Phencyclidine Scrn Presumptive negative 11/02/19 Unknown Ur Amphetamines Screen Presumptive negative 11/02/19 Unknown U Benzodiazepines Scrn Presumptive negative 11/02/19 Unknown Urine Cocaine Screen Presumptive positive 11/02/19 Unknown U Marijuana (THC) Screen Presumptive negative 11/02/19 Unknown Drugs of Abuse Note Disclamer 11/02/19 Unknown Plasma/Serum Alcohol < 0.01 % (0-0.07) 11/02/19 09:13 Active Medications - Current Medications Current Medications: Generic Name Dose Route Start Last Admin Trade Name Freq PRN Reason Stop Dose Admin Acetaminophen 650 mg 11/02/19 15:00 Tylenol PO Q4H PRN Pain MILD(1-3)/Fever >100.5/TAYLOR Albuterol 2.5 mg 11/02/19 14:00 Proventil IH Q4HRT PRN Shortness Of Breath Benzonatate 100 mg 11/02/19 22:00 11/03/19 07:42 Tessalon Perles PO 100 mg Q8HR KYLAH Administration Cetirizine HCl 10 mg 11/03/19 10:00 11/03/19 09:50 Cetirizine PO 10 mg DAILY KYLAH Administration Diphenhydramine HCl 25 mg 11/02/19 22:43 Benadryl PO QHS PRN Sleep Vancomycin HCl 1,500 mg/ 530 mls @ 333.333 mls/hr 11/03/19 14:00 Sodium Chloride IV Q12H KYLAH Ibuprofen 600 mg 11/02/19 15:00 11/03/19 07:44 Ibuprofen PO 600 mg Q8HR KYLAH Administration Nadolol 20 mg 11/03/19 10:00 11/03/19 09:51 Corgard PO 20 mg QDAY KYLAH Administration Ondansetron HCl 4 mg 11/02/19 15:00 Zofran IV Q8H PRN Nausea And Vomiting Pantoprazole Sodium 20 mg 11/02/19 22:00 11/03/19 09:50 Protonix PO 20 mg BID KYLAH Administration Sodium Chloride 10 ml 11/02/19 22:00 11/03/19 09:53 Sodium Chloride Flush Syringe 10 Ml IV 10 ml BID KYLAH Administration Sodium Chloride 10 ml 11/02/19 15:00 Sodium Chloride Flush Syringe 10 Ml IV PRN PRN LINE FLUSH Spironolactone 25 mg 11/03/19 10:00 11/03/19 09:53 Aldactone PO 25 mg DAILY KYLAH Administration
[2019-11-03] MEDS: VANCOMYCIN 1,500 MG in SODIUM CHLORIDE 0.9% 500 ML 500 ML IV SCH (14:25)
--- NOTE | 2019-11-03 15:21 | Consultation ---
History of Present Illness - Reason for Consult Consult date: 11/03/19 Reason for consult: Suicidal ideation - History of Present Psychiatric Illness The patient's medical chart was reviewed and the patient's progress discussed with the nursing staff. The sitter at the bedside says the patient has been very calm and cooperative. She says he talks about the Bible a lot. Dixie Smith is a 64y/o male patient who came to the ER for a cut on his hand. During my interview with the patient today, he sitting on side of the bed conversing with the sitter. He is dressed appropriately. He makes good eye contact. he is a/o x 3. He is calm and cooperative. He is talkative. He is playful. He has a peculiar disposition. The patient appears to be hyper- temple. He says he was admitted "because he got upset and slammed his hand down on a knife." The patient says "he cut his finger very deep and it got infected." He raises his hand up and shows me his index finger on his right hand. He denies SI/HI now or anytime during admission. The patient states, "I know why you are here. Something I said got blown way up." He says, "I was asked was I suicidal, and I replied I've thought about dying before. But then again, haven't everybody." He says, "oh no I've never thought about hurting myself. I once wanted to hurt someone else, but I have no reason to feel that way now." He says he knows "God is preparing him in order to take him to another level." He denies any past attempts of suicide or psychiatric admissions. He says he "used cocaine about 30 years ago." The patient was positive for cocaine this hospital visit. He says he's seen a psychiatrist before, "but did not take any medicine." He says "If they gave me a billion dollars they wouldn't get me to take meds. The word of God is too strong." He says his mood is "good and strong, but it will get stronger once I get done praying." He denies hallucinations of any kind. The patient also denies any fear or feelings of endangerment with returning home. He states, "I'd be happy if I went home to my girlfriend. She is bone of my bone. Flesh of my flesh." PAST PSYCHIATRIC HISTORY: Diagnoses: Schizophrenia Suicide attempts or Self-harm behavior: Denies Prior psychiatric hospitalizations: Denies Substance Abuse history: "cocaine but not in 30 years" Previous psychiatric medications tried: Denies Outpatient treatment: Denies PAST MEDICAL HISTORY: None reported Family Psychiatric History None reported SOCIAL HISTORY Marital Status: Single Living Arrangements: Lives with significant other Employment Status: Disabled Access to guns/weapons: Denied Education: High school diploma History of Abuse: Denies Legal History: "when I was younger" ROS: Constitutional: Negative for weight loss ENT: Negative for stridor Respiratory: Negative for cough or hemoptysis All other systems reviewed and are negative MSE Appearance: Dressed appropriately Behavior: playful, odd, calm and cooperative, good eye contact. Mood: "good and strong" Affect: Congruent Thought Process: hyper-temple Speech: normal tone and pace Thought Content Suicidal: Denies Homicidal: Denies Hallucinations: Denies Delusions: None elicited Consciousness: Alert Cognition/Memory: Limited Insight/Judgment: Limited Diagnoses: Diagnoses: Substance Induced Mood Disorder Plan Depakote DR 125mg po BID Doxepin 10mg po qhs Sitter: Defer to primary Medical: Per primary Disposition: The patient does not meet the requirement for acute inpatient psychiatric treatment. He has continuously denies SI/HI, any fear or endangering feelings or hallucinations of any kind. At this time, his symptoms can be managed on an outpatient. Can discharge home once medically clear. Will continue to follow the patient until he is discharge. Please call with any questions or concerns. Thank you for this consult. Medications and Allergies Allergies Allergy/AdvReac Type Severity Reaction Status Date / Time No Known Allergies Allergy Verified 11/25/16 12:03 Home Medications Medication Instructions Recorded Confirmed Last Taken Type No Known Home Medications [No 11/02/19 11/02/19 Unknown History Reported Home Medications] Active Meds: Active Medications Acetaminophen (Tylenol) 650 mg PO Q4H PRN PRN Reason: Pain MILD(1-3)/Fever >100.5/TAYLOR Albuterol (Proventil) 2.5 mg IH Q4HRT PRN PRN Reason: Shortness Of Breath Benzonatate (Tessalon Perles) 100 mg PO Q8HR KYLAH Last Admin: 11/03/19 14:26 Dose: 100 mg Documented by: Cetirizine HCl (Cetirizine) 10 mg PO DAILY [facility] Last Admin: 11/03/19 09:50 Dose: 10 mg Documented by: Diphenhydramine HCl (Benadryl) 25 mg PO QHS PRN PRN Reason: Sleep Vancomycin HCl 1,500 mg/ (Sodium Chloride) 530 mls @ 333.333 mls/hr IV Q12H [facility] Last Admin: 11/03/19 14:25 Dose: 333.333 mls/hr Documented by: Ibuprofen (Ibuprofen) 600 mg PO Q8HR [facility] Last Admin: 11/03/19 14:26 Dose: Not Given Documented by: Nadolol (Corgard) 20 mg PO QDAY [facility] Last Admin: 11/03/19 09:51 Dose: 20 mg Documented by: Ondansetron HCl (Zofran) 4 mg IV Q8H PRN PRN Reason: Nausea And Vomiting Pantoprazole Sodium (Protonix) 20 mg PO BID [facility] Last Admin: 11/03/19 09:50 Dose: 20 mg Documented by: Sodium Chloride (Sodium Chloride Flush Syringe 10 Ml) 10 ml IV BID [facility] Last Admin: 11/03/19 09:53 Dose: 10 ml Documented by: Sodium Chloride (Sodium Chloride Flush Syringe 10 Ml) 10 ml IV PRN PRN PRN Reason: LINE FLUSH Spironolactone (Aldactone) 25 mg PO DAILY [facility] Last Admin: 11/03/19 09:53 Dose: 25 mg Documented by: Mental Status Exam - Vital signs Last Vital Signs Temp 98.3 F 11/03/19 07:57 Pulse 56 L 11/03/19 09:51 Resp 16 11/03/19 11:07 BP 118/67 11/03/19 09:53 Pulse Ox 100 11/03/19 11:07 Results Result Diagrams: 11/03/19 04:01 11/03/19 04:01 Abnormal lab results 11/03/19 11/03/19 Range/Units 04:01 04:01 RBC 3.54 L (3.65-5.03) M/mm3 MCV 104 H (84-94) fl MCH 36 H (28-32) pg Plt Count 65 L (140-440) K/mm3 Seg Neuts % (Manual) 77.0 H (40.0-70.0) % Lymphocytes # (Manual) 1.1 L (1.2-5.4) K/mm3 Carbon Dioxide 20 L (22-30) mmol/L Glucose 103 H (75-100) mg/dL Calcium 7.8 L (8.4-10.2) mg/dL Total Bilirubin 2.20 H (0.1-1.2) mg/dL AST 41 H (5-40) units/L Total Protein 6.2 L (6.3-8.2) g/dL Albumin 2.4 L (3.9-5) g/dL All other labs normal.
[2019-11-03] MEDS: DIVALPROEX DR 125 MG TAB PO SCH (22:19)
[2019-11-03] MEDS: DOXEPIN 10 MG CAP PO SCH (22:19)
[2019-11-03] MEDS ORDERED: MORPHINE 2 MG/1 ML INJ IV ONE (23:54)
[2019-11-04] MEDS: VANCOMYCIN 1,500 MG in SODIUM CHLORIDE 0.9% 500 ML 500 ML IV SCH ×2 (01:21→13:04)
[2019-11-04 05:10] LABS: Basophils % (Auto) 0.4 % (0.0-1.8); Eosinophils # (Auto) 0.2 K/mm3 (0.0-0.4); Eosinophils % (Auto) 2.9 % (0.0-4.3); Hematocrit 37.6 % (35.5-45.6); Hemoglobin 12.7 gm/dl (11.8-15.2); Lymphocytes # (Auto) 0.7 K/mm3 (1.2-5.4); Lymphocytes % (Auto) 13.6 % (13.4-35.0); Mean Corpuscular HGB Conc 34 % (32-34); Mean Corpuscular Volume 106 fl (84-94); Monocytes # (Auto) 0.7 K/mm3 (0.0-0.8); Monocytes % (Auto) 13.6 % (0.0-7.3); Red Blood Count 3.55 M/mm3 (3.65-5.03); Red Cell Distribution Width 14.9 % (13.2-15.2)
[2019-11-04 05:16] LABS: Platelet Count 75 K/mm3 (140-440)
[2019-11-04 05:30] LABS: BUN/Creatinine Ratio 11; Blood Urea Nitrogen 10 mg/dL (9-20); Calcium 7.8 mg/dL (8.4-10.2); Hemolysis Index 6
[2019-11-04] MEDS: IBUPROFEN 600 MG TAB PO SCH ×4 (06:35→22:01)
[2019-11-04] MEDS: BENZONATATE 100 MG CAP PO SCH ×3 (06:35→22:02)
--- NOTE | 2019-11-04 08:44 | Progress Note ---
Assessment and Plan Assessment and plan: Right hand cellulitis. Continue IV antibiotics. Schizophrenia. Continue per psychiatry. Hypertension. Continue antihypertensive medications. GERD. Continue PPI. Cocaine dependence. Withdrawal precautions and supportive care. DVT prophylaxis. Continue SCDs. 11/04the patient still has warmth, erythema and tenderness of the hand requiring IV antibiotics. Follow-up labs in a.m. Patient evaluated by psychiatry who recommends Depakote 125 mg p.o. twice daily and doxepin 10 mg at bedtime. Psychiatry does not feel patient meets inpatient psychiatric treatment criteria. Patient will be managed as an outpatient. History Interval history: No new issues overnight. Hospitalist Physical - Constitutional Vitals: Temp Pulse Resp BP Pulse Ox 100.0 F H 60 12 105/55 96 11/04/19 07:41 11/04/19 07:41 11/04/19 07:41 11/04/19 07:41 11/04/19 07:41 General appearance: Present: no acute distress, obese - EENT Eyes: Present: PERRL, EOM intact ENT: hearing intact, clear oral mucosa, dentition normal - Neck Neck: Present: supple, normal ROM - Respiratory Respiratory effort: normal Respiratory: bilateral: CTA - Cardiovascular Rhythm: regular Heart Sounds: Present: S1 & S2. Absent: gallop, rub - Extremities Extremities: no ischemia, No edema, Full ROM - Abdominal General gastrointestinal: soft, non-tender, non-distended, normal bowel sounds - Integumentary Integumentary: Present: clear, warm, dry - Neurologic Neurologic: CNII-XII intact, moves all extremities JASON score - Jason Score Age > 65: (0) No Aspirin use within the Past 7 Days: (0) No 3 or more CAD Risk Factors: (0) No 2 or more Angina events in past 24 hrs: (1) Yes Known CAD with more than 50% Stenosis: (0) No Elevated Cardiac Markers: (0) No ST Deviation Greater than 0.5mm: (0) No JASON Score: 1 Results - Labs CBC & Chem 7: 11/04/19 04:20 11/04/19 04:20 Labs: Laboratory Last Values WBC 5.5 K/mm3 (4.5-11.0) 11/04/19 04:20 RBC 3.55 M/mm3 (3.65-5.03) L 11/04/19 04:20 Hgb 12.7 gm/dl (11.8-15.2) 11/04/19 04:20 Hct 37.6 % (35.5-45.6) 11/04/19 04:20 MCV 106 fl (84-94) H 11/04/19 04:20 MCH 36 pg (28-32) H 11/04/19 04:20 MCHC 34 % (32-34) 11/04/19 04:20 RDW 14.9 % (13.2-15.2) 11/04/19 04:20 Plt Count 75 K/mm3 (140-440) L 11/04/19 04:20 Lymph % (Auto) 13.6 % (13.4-35.0) 11/04/19 04:20 [place] % (Auto) 13.6 % (0.0-7.3) H 11/04/19 04:20 Eos % (Auto) 2.9 % (0.0-4.3) 11/04/19 04:20 Baso % (Auto) 0.4 % (0.0-1.8) 11/04/19 04:20 Lymph # 0.7 K/mm3 (1.2-5.4) L 11/04/19 04:20 [place] # 0.7 K/mm3 (0.0-0.8) 11/04/19 04:20 Eos # 0.2 K/mm3 (0.0-0.4) 11/04/19 04:20 Baso # 0.0 K/mm3 (0.0-0.1) 11/04/19 04:20 Add Manual Diff Complete 11/03/19 04:01 Total Counted 100 11/03/19 04:01 Seg Neutrophils % 69.5 % (40.0-70.0) 11/04/19 04:20 Seg Neuts % (Manual) 77.0 % (40.0-70.0) H 11/03/19 04:01 Band Neutrophils % 0 % 11/03/19 04:01 Lymphocytes % (Manual) 21.0 % (13.4-35.0) 11/03/19 04:01 Reactive Lymphs % (Man) 0 % 11/03/19 04:01 Monocytes % (Manual) 2.0 % (0.0-7.3) 11/03/19 04:01 Eosinophils % (Manual) 0 % (0.0-4.3) 11/03/19 04:01 Basophils % (Manual) 0 % (0.0-1.8) 11/03/19 04:01 Metamyelocytes % 0 % 11/03/19 04:01 Myelocytes % 0 % 11/03/19 04:01 Promyelocytes % 0 % 11/03/19 04:01 Blast Cells % 0 % 11/03/19 04:01 Nucleated RBC % Not Reportable 11/03/19 04:01 Seg Neutrophils # 3.8 K/mm3 (1.8-7.7) 11/04/19 04:20 Seg Neutrophils # Man 4.0 K/mm3 (1.8-7.7) 11/03/19 04:01 Band Neutrophils # 0.0 K/mm3 11/03/19 04:01 Lymphocytes # (Manual) 1.1 K/mm3 (1.2-5.4) L 11/03/19 04:01 Abs React Lymphs (Man) 0.0 K/mm3 11/03/19 04:01 Monocytes # (Manual) 0.1 K/mm3 (0.0-0.8) 11/03/19 04:01 Eosinophils # (Manual) 0.0 K/mm3 (0.0-0.4) 11/03/19 04:01 Basophils # (Manual) 0.0 K/mm3 (0.0-0.1) 11/03/19 04:01 Metamyelocytes # 0.0 K/mm3 11/03/19 04:01 Myelocytes # 0.0 K/mm3 11/03/19 04:01 Promyelocytes # 0.0 K/mm3 11/03/19 04:01 Blast Cells # 0.0 K/mm3 11/03/19 04:01 WBC Morphology Not Reportable 11/03/19 04:01 Hypersegmented Neuts Not Reportable 11/03/19 04:01 Hyposegmented Neuts Not Reportable 11/03/19 04:01 Hypogranular Neuts Not Reportable 11/03/19 04:01 Smudge Cells Not Reportable 11/03/19 04:01 Toxic Granulation Not Reportable 11/03/19 04:01 Toxic Vacuolation Not Reportable 11/03/19 04:01 Dohle Bodies Not Reportable 11/03/19 04:01 Pelger-Huet Anomaly Not Reportable 11/03/19 04:01 Gordo Rods Not Reportable 11/03/19 04:01 Platelet Estimate Consistent w auto 11/03/19 04:01 Clumped Platelets Not Reportable 11/03/19 04:01 Plt Clumps, EDTA Not Reportable 11/03/19 04:01 Large Platelets Not Reportable 11/03/19 04:01 Giant Platelets Not Reportable 11/03/19 04:01 Platelet Satelliting Not Reportable 11/03/19 04:01 Plt Morphology Comment Not Reportable 11/03/19 04:01 RBC Morphology Not Reportable 11/03/19 04:01 Dimorphic RBCs Not Reportable 11/03/19 04:01 Polychromasia Not Reportable 11/03/19 04:01 Hypochromasia Not Reportable 11/03/19 04:01 Poikilocytosis Not Reportable 11/03/19 04:01 Anisocytosis Not Reportable 11/03/19 04:01 Microcytosis Not Reportable 11/03/19 04:01 Macrocytosis Not Reportable 11/03/19 04:01 Spherocytes Not Reportable 11/03/19 04:01 Pappenheimer Bodies Not Reportable 11/03/19 04:01 Sickle Cells Not Reportable 11/03/19 04:01 Target Cells Not Reportable 11/03/19 04:01 Tear Drop Cells Not Reportable 11/03/19 04:01 Ovalocytes Not Reportable 11/03/19 04:01 Helmet Cells Not Reportable 11/03/19 04:01 Rios-[place]ullivan Bodies Not Reportable 11/03/19 04:01 [place] Rings Not Reportable 11/03/19 04:01 [place] Cells Not Reportable 11/03/19 04:01 Bite Cells Not Reportable 11/03/19 04:01 Crenated Cell Not Reportable 11/03/19 04:01 Elliptocytes Not Reportable 11/03/19 04:01 Acanthocytes (Spur) Not Reportable 11/03/19 04:01 Rouleaux Not Reportable 11/03/19 04:01 Hemoglobin C Crystals Not Reportable 11/03/19 04:01 Schistocytes Not Reportable 11/03/19 04:01 Malaria parasites Not Reportable 11/03/19 04:01 Khari Bodies Not Reportable 11/03/19 04:01 Hem Pathologist Commnt No 11/03/19 04:01 PT 18.5 Sec. (12.2-14.9) H 11/02/19 09:13 INR 1.52 (0.87-1.13) H 11/02/19 09:13 APTT 39.1 Sec. (24.2-36.6) H 11/02/19 09:13 Sodium 139 mmol/L (137-145) 11/04/19 04:20 Potassium 4.2 mmol/L (3.6-5.0) 11/04/19 04:20 Chloride 107.9 mmol/L (98-107) H 11/04/19 04:20 Carbon Dioxide 19 mmol/L (22-30) L 11/04/19 04:20 Anion Gap 16 mmol/L 11/04/19 04:20 BUN 10 mg/dL (9-20) 11/04/19 04:20 Creatinine 0.9 mg/dL (0.8-1.5) 11/04/19 04:20 Estimated GFR > 60 ml/min 11/04/19 04:20 BUN/Creatinine Ratio 11 % 11/04/19 04:20 Glucose 84 mg/dL (75-100) 11/04/19 04:20 Lactic Acid 1.70 mmol/L (0.7-2.0) 11/02/19 11:29 Calcium 7.8 mg/dL (8.4-10.2) L 11/04/19 04:20 Magnesium 1.70 mg/dL (1.7-2.3) 11/02/19 09:13 Total Bilirubin 2.20 mg/dL (0.1-1.2) H 11/03/19 04:01 Direct Bilirubin 1.1 mg/dL (0-0.2) H 11/02/19 09:13 Indirect Bilirubin 2.5 mg/dL 11/02/19 09:13 AST 41 units/L (5-40) H 11/03/19 04:01 ALT 24 units/L (7-56) 11/03/19 04:01 Alkaline Phosphatase 113 units/L (35-129) 11/03/19 04:01 Ammonia 37.0 umol/L (25-60) 11/02/19 09:13 Total Creatine Kinase 421 units/L (55-170) H 11/02/19 09:13 CK-MB (CK-2) 4.1 ng/mL (0.0-4.0) H 11/02/19 09:13 CK-MB (CK-2) Rel Index 0.9 (0-4) 11/02/19 09:13 NT-Pro-B Natriuret Pep 106.6 pg/mL (0-900) 11/02/19 09:13 Total Protein 6.2 g/dL (6.3-8.2) L 11/03/19 04:01 Albumin 2.4 g/dL (3.9-5) L 11/03/19 04:01 Albumin/Globulin Ratio 0.6 % 11/03/19 04:01 Urine Color Yellow (Yellow) 11/02/19 Unknown Urine Turbidity Clear (Clear) 11/02/19 Unknown Urine pH 6.0 (5.0-7.0) 11/02/19 Unknown Ur Specific [place] 1.013 (1.003-1.030) 11/02/19 Unknown Urine Protein <15 mg/dl mg/dL (Negative) 11/02/19 Unknown Urine Glucose (UA) Neg mg/dL (Negative) 11/02/19 Unknown Urine Ketones Neg mg/dL (Negative) 11/02/19 Unknown Urine Blood Neg (Negative) 11/02/19 Unknown Urine Nitrite Neg (Negative) 11/02/19 Unknown Urine Bilirubin Neg (Negative) 11/02/19 Unknown Urine Urobilinogen 2.0 mg/dL (<2.0) 11/02/19 Unknown Ur Leukocyte Esterase Neg (Negative) 11/02/19 Unknown Urine WBC (Auto) 1.0 /HPF (0.0-6.0) 11/02/19 Unknown Urine RBC (Auto) 6.0 /HPF (0.0-6.0) 11/02/19 Unknown Urine Mucus Few /HPF 11/02/19 Unknown Salicylates < 0.3 mg/dL (2.8-20.0) L 11/02/19 09:13 Urine Opiates Screen Presumptive negative 11/02/19 Unknown Urine Methadone Screen Presumptive negative 11/02/19 Unknown Ur Barbiturates Screen Presumptive negative 11/02/19 Unknown Ur Phencyclidine Scrn Presumptive negative 11/02/19 Unknown Ur Amphetamines Screen Presumptive negative 11/02/19 Unknown U Benzodiazepines Scrn Presumptive negative 11/02/19 Unknown Urine Cocaine Screen Presumptive positive 11/02/19 Unknown U Marijuana (THC) Screen Presumptive negative 11/02/19 Unknown Drugs of Abuse Note Disclamer 11/02/19 Unknown Plasma/Serum Alcohol < 0.01 % (0-0.07) 11/02/19 09:13 Active Medications - Current Medications Current Medications: Generic Name Dose Route Start Last Admin Trade Name Freq PRN Reason Stop Dose Admin Acetaminophen 650 mg 11/02/19 15:00 Tylenol PO Q4H PRN Pain MILD(1-3)/Fever >100.5/TAYLOR Albuterol 2.5 mg 11/02/19 14:00 Proventil IH Q4HRT PRN Shortness Of Breath Benzonatate 100 mg 11/02/19 22:00 11/04/19 06:35 Tessalon Perles PO Not Given Q8HR KYLAH Cetirizine HCl 10 mg 11/03/19 10:00 11/03/19 09:50 Cetirizine PO 10 mg DAILY KYLAH Administration Diphenhydramine HCl 25 mg 11/02/19 22:43 Benadryl PO QHS PRN Sleep Divalproex Sodium 125 mg 11/03/19 22:00 11/03/19 22:[address] PO Not Given BID KYLAH Doxepin HCl 10 mg 11/03/19 22:00 11/03/19 22:19 Sinequan PO Not Given QHS KYLAH Vancomycin HCl 1,500 mg/ 530 mls @ 333.333 mls/hr 11/03/19 14:00 11/04/19 01:21 Sodium Chloride IV 333.333 mls/hr Q12H KYLAH Administration Ibuprofen 600 mg 11/02/19 15:00 11/04/19 06:35 Ibuprofen PO Not Given Q8HR KYLAH Nadolol 20 mg 11/03/19 10:00 11/03/19 09:51 Corgard PO 20 mg QDAY KYLAH Administration Ondansetron HCl 4 mg 11/02/19 15:00 Zofran IV Q8H PRN Nausea And Vomiting Pantoprazole Sodium 20 mg 11/02/19 22:00 11/03/19 22:17 Protonix PO Not Given BID KYLAH Sodium Chloride 10 ml 11/02/19 22:00 11/03/19 23:50 Sodium Chloride Flush Syringe 10 Ml IV 10 ml BID KYLAH Administration Sodium Chloride 10 ml 11/02/19 15:00 Sodium Chloride Flush Syringe 10 Ml IV PRN PRN LINE FLUSH Spironolactone 25 mg 11/03/19 10:00 11/03/19 09:53 Aldactone PO 25 mg DAILY KYLAH Administration
[2019-11-04] MEDS: CETIRIZINE 10 MG TAB PO SCH (10:18)
[2019-11-04] MEDS: SPIRONOLACTONE 25 MG TAB PO SCH (10:23)
[2019-11-04] MEDS: NADOLOL 20 MG TAB PO SCH (10:24)
[2019-11-04] MEDS: PANTOPRAZOLE 20 MG TAB PO SCH ×2 (10:25→22:02)
[2019-11-04] MEDS: DIVALPROEX DR 125 MG TAB PO SCH ×2 (10:25→22:02)
--- NOTE | 2019-11-04 12:29 | Progress Note ---
Subjective - Reason for Consult Consult date: 11/04/19 Reason for consult: suicidal ideation - Chief Complaint Chief complaint: During my interview with the patient today, he is lying in bed. Asleep. Easily arouses. He has a sitter at bedside. He is not as talkative today. He makes good eye contact. He is calm and cooperative. He is polite. The patient states he slept "pretty good." He says he feels "pretty good too," but says he "feels a little weak." He says "I probably just need to get out of this bed and sit up." The patients, "I was depressed. But not now, and I'm telling you the truth." He denies SI/HI, he says "no, I'm not trying to do any of that." Mr. Smith denies hallucinations of any kind. He laughs and says, "no, not even in my dreams." At the end of the interview, he thanks me for coming to check on him. ROS: Constitutional: Negative for weight loss ENT: Negative for stridor Respiratory: Negative for cough or hemoptysis All other systems reviewed and are negative MSE Appearance: Dressed appropriately Behavior: police, calm and cooperative. Mood: "pretty good" Affect: Congruent Thought Process: goal directed Speech: normal tone and pace Thought Content Suicidal: Denies Homicidal: Denies Hallucinations: Denies Delusions: None elicited Consciousness: Alert Cognition/Memory: Limited Insight/Judgment: Limited Diagnoses: Diagnoses: Substance Induced Mood Disorder Plan d/c 1013 Scripts: Given to secretary to board of commissioners Dianne RAI 125mg po BID Doxepin 10mg po qhs Sitter: Defer to primary Medical: Per primary Disposition: The patient does not meet the requirement for acute inpatient psychiatric treatment. He has continuously denies SI/HI, any fear or endangering feelings or hallucinations of any kind. At this time, his symptoms can be managed on an outpatient basis. Can discharge home once medically clear. The trigonometry teacher to give the patient resources for outpatient psychiatry and resources The patient is to abstain from illicit drug use and alcohol use Follow up with outpatient psychiatry or primary doctor in 7 to 14 days. The treatment plan, including benefits and side effects of medications, were explained to the patient. He verbalizes understanding and agreement of plan. Will sign off. Please call with any questions or concerns. Thank you for this consult. Mental Status Exam - Vital signs Last Vital Signs Temp 100.0 F H 11/04/19 07:41 Pulse 61 11/04/19 10:23 Resp 12 11/04/19 07:41 BP 102/45 11/04/19 10:23 Pulse Ox 96 11/04/19 07:41
[2019-11-04] MEDS: DOXEPIN 10 MG CAP PO SCH (22:02)
[2019-11-05] MEDS: VANCOMYCIN 1,500 MG in SODIUM CHLORIDE 0.9% 500 ML 500 ML IV SCH ×2 (02:00→13:38)
[2019-11-05] MEDS: IBUPROFEN 600 MG TAB PO SCH ×3 (05:18→22:39)
[2019-11-05] MEDS: BENZONATATE 100 MG CAP PO SCH ×3 (05:19→22:40)
[2019-11-05 06:21] LABS: Hematocrit 34.4 % (35.5-45.6); Hemoglobin 11.6 gm/dl (11.8-15.2); Mean Corpuscular HGB Conc 34 % (32-34); Mean Corpuscular Volume 106 fl (84-94); Red Blood Count 3.26 M/mm3 (3.65-5.03)
[2019-11-05 06:28] LABS: Platelet Count 72 K/mm3 (140-440)
[2019-11-05 06:35] LABS: BUN/Creatinine Ratio 12; Blood Urea Nitrogen 15 mg/dL (9-20); Calcium 7.4 mg/dL (8.4-10.2); Hemolysis Index 0
[2019-11-05 07:11] LABS: Basophils % (Manual) 0 % (0.0-1.8); Total Cells Counted 100
[2019-11-05 07:12] LABS: Burr Cells Rare; Platelet Estimate Consistent w Auto
[2019-11-05] MEDS: CETIRIZINE 10 MG TAB PO SCH (09:36)
[2019-11-05] MEDS: DIVALPROEX DR 125 MG TAB PO SCH ×2 (09:37→22:39)
[2019-11-05] MEDS: PANTOPRAZOLE 20 MG TAB PO SCH ×2 (09:37→22:39)
[2019-11-05] MEDS: NADOLOL 20 MG TAB PO SCH (09:42)
[2019-11-05] MEDS: SPIRONOLACTONE 25 MG TAB PO SCH (09:43)
--- NOTE | 2019-11-05 10:15 | Progress Note ---
Assessment and Plan Assessment and plan: Right hand cellulitis. Continue IV antibiotics. Schizophrenia. Continue per psychiatry. Hypertension. Continue antihypertensive medications. GERD. Continue PPI. Cocaine dependence. Withdrawal precautions and supportive care. DVT prophylaxis. Continue SCDs. 11/04the patient still has warmth, erythema and tenderness of the hand requiring IV antibiotics. Follow-up labs in a.m. Patient evaluated by psychiatry who recommends Depakote 125 mg p.o. twice daily and doxepin 10 mg at bedtime. Psychiatry does not feel patient meets inpatient psychiatric treatment criteria. Patient will be managed as an outpatient. 11/05- the patient still has warmth, erythema and tenderness exhibiting cell ulitis of the hand requiring IV antibiotics. Follow-up labs in a.m. Psychiatry does not feel patient meets inpatient psychiatric treatment criteria. Patient will be managed as an outpatient. History Interval history: No new issues overnight. Hospitalist Physical - Constitutional Vitals: Temp Pulse Resp BP Pulse Ox 97.8 F 48 L 18 110/73 100 11/05/19 07:30 11/05/19 09:43 11/05/19 08:28 11/05/19 09:40 11/05/19 09:40 General appearance: Present: no acute distress, obese - EENT Eyes: Present: PERRL, EOM intact ENT: hearing intact, clear oral mucosa, dentition normal - Neck Neck: Present: supple, normal ROM - Respiratory Respiratory effort: normal Respiratory: bilateral: CTA - Cardiovascular Rhythm: regular Heart Sounds: Present: S1 & S2. Absent: gallop, rub - Extremities Extremities: no ischemia, No edema, Full ROM - Abdominal General gastrointestinal: soft, non-tender, non-distended, normal bowel sounds - Integumentary Integumentary: Present: clear, warm, dry - Neurologic Neurologic: CNII-XII intact, moves all extremities JASON score - Jason Score Age > 65: (0) No Aspirin use within the Past 7 Days: (0) No 3 or more CAD Risk Factors: (0) No 2 or more Angina events in past 24 hrs: (1) Yes Known CAD with more than 50% Stenosis: (0) No Elevated Cardiac Markers: (0) No ST Deviation Greater than 0.5mm: (0) No JASON Score: 1 Results - Labs CBC & Chem 7: 11/05/19 05:23 11/05/19 05:23 Labs: Laboratory Last Values WBC 5.9 K/mm3 (4.5-11.0) 11/05/19 05:23 RBC 3.26 M/mm3 (3.65-5.03) L 11/05/19 05:23 Hgb 11.6 gm/dl (11.8-15.2) L 11/05/19 05:23 Hct 34.4 % (35.5-45.6) L 11/05/19 05:23 MCV 106 fl (84-94) H 11/05/19 05:23 MCH 36 pg (28-32) H 11/05/19 05:23 MCHC 34 % (32-34) 11/05/19 05:23 RDW 15.0 % (13.2-15.2) 11/05/19 05:23 Plt Count 72 K/mm3 (140-440) L 11/05/19 05:23 Lymph % (Auto) 13.6 % (13.4-35.0) 11/04/19 04:20 [place] % (Auto) Blueprint Trimmer 11/05/19 05:23 Eos % (Auto) 2.9 % (0.0-4.3) 11/04/19 04:20 Baso % (Auto) 0.4 % (0.0-1.8) 11/04/19 04:20 Lymph # 0.7 K/mm3 (1.2-5.4) L 11/04/19 04:20 [place] # 0.7 K/mm3 (0.0-0.8) 11/04/19 04:20 Eos # 0.2 K/mm3 (0.0-0.4) 11/04/19 04:20 Baso # 0.0 K/mm3 (0.0-0.1) 11/04/19 04:20 Add Manual Diff Complete 11/05/19 05:23 Total Counted 100 11/05/19 05:23 Seg Neutrophils % 69.5 % (40.0-70.0) 11/04/19 04:20 Seg Neuts % (Manual) 64.0 % (40.0-70.0) 11/05/19 05:23 Band Neutrophils % 0 % 11/05/19 05:23 Lymphocytes % (Manual) 16.0 % (13.4-35.0) 11/05/19 05:23 Reactive Lymphs % (Man) 0 % 11/05/19 05:23 Monocytes % (Manual) 18.0 % (0.0-7.3) H 11/05/19 05:23 Eosinophils % (Manual) 2.0 % (0.0-4.3) 11/05/19 05:23 Basophils % (Manual) 0 % (0.0-1.8) 11/05/19 05:23 Metamyelocytes % 0 % 11/05/19 05:23 Myelocytes % 0 % 11/05/19 05:23 Promyelocytes % 0 % 11/05/19 05:23 Blast Cells % 0 % 11/05/19 05:23 Nucleated RBC % Not Reportable 11/05/19 05:23 Seg Neutrophils # 3.8 K/mm3 (1.8-7.7) 11/04/19 04:20 Seg Neutrophils # Man 3.8 K/mm3 (1.8-7.7) 11/05/19 05:23 Band Neutrophils # 0.0 K/mm3 11/05/19 05:23 Lymphocytes # (Manual) 0.9 K/mm3 (1.2-5.4) L 11/05/19 05:23 Abs React Lymphs (Man) 0.0 K/mm3 11/05/19 05:23 Monocytes # (Manual) 1.1 K/mm3 (0.0-0.8) H 11/05/19 05:23 Eosinophils # (Manual) 0.1 K/mm3 (0.0-0.4) 11/05/19 05:23 Basophils # (Manual) 0.0 K/mm3 (0.0-0.1) 11/05/19 05:23 Metamyelocytes # 0.0 K/mm3 11/05/19 05:23 Myelocytes # 0.0 K/mm3 11/05/19 05:23 Promyelocytes # 0.0 K/mm3 11/05/19 05:23 Blast Cells # 0.0 K/mm3 11/05/19 05:23 WBC Morphology Not Reportable 11/05/19 05:23 Hypersegmented Neuts Not Reportable 11/05/19 05:23 Hyposegmented Neuts Not Reportable 11/05/19 05:23 Hypogranular Neuts Not Reportable 11/05/19 05:23 Smudge Cells Not Reportable 11/05/19 05:23 Toxic Granulation Not Reportable 11/05/19 05:23 Toxic Vacuolation Not Reportable 11/05/19 05:23 Dohle Bodies Not Reportable 11/05/19 05:23 Pelger-Huet Anomaly Not Reportable 11/05/19 05:23 [place]ordo Rods Not Reportable 11/05/19 05:23 Platelet Estimate Consistent w auto 11/05/19 05:23 Clumped Platelets Not Reportable 11/05/19 05:23 Plt Clumps, EDTA Not Reportable 11/05/19 05:23 Large Platelets Not Reportable 11/05/19 05:23 Giant Platelets Not Reportable 11/05/19 05:23 Platelet Satelliting Not Reportable 11/05/19 05:23 Plt Morphology Comment Not Reportable 11/05/19 05:23 RBC Morphology Not Reportable 11/05/19 05:23 Dimorphic RBCs Not Reportable 11/05/19 05:23 Polychromasia Not Reportable 11/05/19 05:23 Hypochromasia Not Reportable 11/05/19 05:23 Poikilocytosis Not Reportable 11/05/19 05:23 Anisocytosis Not Reportable 11/05/19 05:23 Microcytosis Not Reportable 11/05/19 05:23 Macrocytosis Not Reportable 11/05/19 05:23 Spherocytes Not Reportable 11/05/19 05:23 Pappenheimer Bodies Not Reportable 11/05/19 05:23 Sickle Cells Not Reportable 11/05/19 05:23 Target Cells Not Reportable 11/05/19 05:23 Tear Drop Cells Not Reportable 11/05/19 05:23 Ovalocytes Not Reportable 11/05/19 05:23 Helmet Cells Not Reportable 11/05/19 05:23 [place] Bodies Not Reportable 11/05/19 05:23 [place] Rings Not Reportable 11/05/19 05:23 [place] Cells Rare 11/05/19 05:23 Bite Cells Not Reportable 11/05/19 05:23 Crenated Cell Not Reportable 11/05/19 05:23 Elliptocytes Not Reportable 11/05/19 05:23 Acanthocytes (Spur) Not Reportable 11/05/19 05:23 Rouleaux Not Reportable 11/05/19 05:23 Hemoglobin C Crystals Not Reportable 11/05/19 05:23 Schistocytes Not Reportable 11/05/19 05:23 Malaria parasites Not Reportable 11/05/19 05:23 Khari Bodies Not Reportable 11/05/19 05:23 Hem Pathologist Commnt No 11/05/19 05:23 PT 18.5 Sec. (12.2-14.9) H 11/02/19 09:13 INR 1.52 (0.87-1.13) H 11/02/19 09:13 APTT 39.1 Sec. (24.2-36.6) H 11/02/19 09:13 Sodium 140 mmol/L (137-145) 11/05/19 05:23 Potassium 3.7 mmol/L (3.6-5.0) 11/05/19 05:23 Chloride 108.1 mmol/L (98-107) H 11/05/19 05:23 Carbon Dioxide 18 mmol/L (22-30) L 11/05/19 05:23 Anion Gap 18 mmol/L 11/05/19 05:23 BUN 15 mg/dL (9-20) 11/05/19 05:23 Creatinine 1.3 mg/dL (0.8-1.5) 11/05/19 05:23 Estimated GFR > 60 ml/min 11/05/19 05:23 BUN/Creatinine Ratio 12 % 11/05/19 05:23 Glucose 118 mg/dL (75-100) H 11/05/19 05:23 Lactic Acid 1.70 mmol/L (0.7-2.0) 11/02/19 11:29 Calcium 7.4 mg/dL (8.4-10.2) L 11/05/19 05:23 Magnesium 1.70 mg/dL (1.7-2.3) 11/02/19 09:13 Total Bilirubin 2.20 mg/dL (0.1-1.2) H 11/03/19 04:01 Direct Bilirubin 1.1 mg/dL (0-0.2) H 11/02/19 09:13 Indirect Bilirubin 2.5 mg/dL 11/02/19 09:13 AST 41 units/L (5-40) H 11/03/19 04:01 ALT 24 units/L (7-56) 11/03/19 04:01 Alkaline Phosphatase 113 units/L (35-129) 11/03/19 04:01 Ammonia 37.0 umol/L (25-60) 11/02/19 09:13 Total Creatine Kinase 421 units/L (55-170) H 11/02/19 09:13 CK-MB (CK-2) 4.1 ng/mL (0.0-4.0) H 11/02/19 09:13 CK-MB (CK-2) Rel Index 0.9 (0-4) 11/02/19 09:13 NT-Pro-B Natriuret Pep 106.6 pg/mL (0-900) 11/02/19 09:13 Total Protein 6.2 g/dL (6.3-8.2) L 11/03/19 04:01 Albumin 2.4 g/dL (3.9-5) L 11/03/19 04:01 Albumin/Globulin Ratio 0.6 % 11/03/19 04:01 Urine Color Yellow (Yellow) 11/02/19 Unknown Urine Turbidity Clear (Clear) 11/02/19 Unknown Urine pH 6.0 (5.0-7.0) 11/02/19 Unknown Ur Specific [place] 1.013 (1.003-1.030) 11/02/19 Unknown Urine Protein <15 mg/dl mg/dL (Negative) 11/02/19 Unknown Urine Glucose (UA) Neg mg/dL (Negative) 11/02/19 Unknown Urine Ketones Neg mg/dL (Negative) 11/02/19 Unknown Urine Blood Neg (Negative) 11/02/19 Unknown Urine Nitrite Neg (Negative) 11/02/19 Unknown Urine Bilirubin Neg (Negative) 11/02/19 Unknown Urine Urobilinogen 2.0 mg/dL (<2.0) 11/02/19 Unknown Ur Leukocyte Esterase Neg (Negative) 11/02/19 Unknown Urine WBC (Auto) 1.0 /HPF (0.0-6.0) 11/02/19 Unknown Urine RBC (Auto) 6.0 /HPF (0.0-6.0) 11/02/19 Unknown Urine Mucus Few /HPF 11/02/19 Unknown Vancomycin Trough 15.7 ug/mL (5.0-20.0) 11/05/19 00:39 Salicylates < 0.3 mg/dL (2.8-20.0) L 11/02/19 09:13 Urine Opiates Screen Presumptive negative 11/02/19 Unknown Urine Methadone Screen Presumptive negative 11/02/19 Unknown Ur Barbiturates Screen Presumptive negative 11/02/19 Unknown Ur Phencyclidine Scrn Presumptive negative 11/02/19 Unknown Ur Amphetamines Screen Presumptive negative 11/02/19 Unknown U Benzodiazepines Scrn Presumptive negative 11/02/19 Unknown Urine Cocaine Screen Presumptive positive 11/02/19 Unknown U Marijuana (THC) Screen Presumptive negative 11/02/19 Unknown Drugs of Abuse Note Disclamer 11/02/19 Unknown Plasma/Serum Alcohol < 0.01 % (0-0.07) 11/02/19 09:13 Active Medications - Current Medications Current Medications: Generic Name Dose Route Start Last Admin Trade Name Freq PRN Reason Stop Dose Admin Acetaminophen 650 mg 11/02/19 15:00 Tylenol PO Q4H PRN Pain MILD(1-3)/Fever >100.5/[place] Albuterol 2.5 mg 11/02/19 14:00 Proventil IH Q4HRT PRN Shortness Of Breath Benzonatate 100 mg 11/02/19 22:00 11/05/19 05:19 Tessalon Perles PO 100 mg Q8HR KYLAH Administration Cetirizine HCl 10 mg 11/03/19 10:00 11/05/19 09:36 Cetirizine PO 10 mg DAILY KYLAH Administration Diphenhydramine HCl 25 mg 11/02/19 22:43 Benadryl PO QHS PRN Sleep Divalproex Sodium 125 mg 11/03/19 22:00 11/05/19 09:[address] PO 125 mg BID [facility]LA[facility] Administration Doxepin HCl 10 mg 11/03/19 22:00 11/04/19 22:02 Sinequan PO 10 mg QHS KYLAH Administration Vancomycin HCl 1,500 mg/ 530 mls @ 333.333 mls/hr 11/03/19 14:00 11/05/19 02:00 Sodium Chloride IV 333.333 mls/hr Q12H [facility]LA[facility] Administration Ibuprofen 600 mg 11/02/19 15:00 11/05/19 05:18 Ibuprofen PO 600 mg Q8HR [facility]LA[facility] Administration Nadolol 20 mg 11/03/19 10:00 11/05/19 09:42 Corgard PO Not Given QDAY KYLAH Ondansetron HCl 4 mg 11/02/19 15:00 Zofran IV Q8H PRN Nausea And Vomiting Pantoprazole Sodium 20 mg 11/02/19 22:00 11/05/19 09:37 Protonix PO 20 mg BID KYLAH Administration Sodium Chloride 10 ml 11/02/19 22:00 11/05/19 09:42 Sodium Chloride Flush Syringe 10 Ml IV 10 ml BID KYLAH Administration Sodium Chloride 10 ml 11/02/19 15:00 Sodium Chloride Flush Syringe 10 Ml IV PRN PRN LINE FLUSH Spironolactone 25 mg 11/03/19 10:00 11/05/19 09:43 Aldactone PO Not Given DAILY KYLAH
[2019-11-05] MEDS: DOXEPIN 10 MG CAP PO SCH (22:40)
[2019-11-06] MEDS: VANCOMYCIN 1,500 MG in SODIUM CHLORIDE 0.9% 500 ML 500 ML IV SCH ×3 (00:21→13:38)
[2019-11-06] MEDS: IBUPROFEN 600 MG TAB PO SCH ×2 (05:46→13:38)
[2019-11-06] MEDS: BENZONATATE 100 MG CAP PO SCH ×2 (05:47→13:38)
[2019-11-06 06:40] LABS: BUN/Creatinine Ratio 14; Blood Urea Nitrogen 14 mg/dL (9-20); Calcium 7.4 mg/dL (8.4-10.2); Hemolysis Index 3
[2019-11-06] MEDS: SPIRONOLACTONE 25 MG TAB PO SCH (09:20)
[2019-11-06] MEDS: PANTOPRAZOLE 20 MG TAB PO SCH (09:21)
[2019-11-06] MEDS: NADOLOL 20 MG TAB PO SCH (09:21)
[2019-11-06] MEDS: DIVALPROEX DR 125 MG TAB PO SCH (09:21)
[2019-11-06] MEDS: CETIRIZINE 10 MG TAB PO SCH (09:24)
[2019-11-06 13:39] VITALS: BP 121/65
--- NOTE | 2019-11-06 14:03 | Discharge Summary ---
Providers - Providers Date of Admission: 11/02/19 14:00 Date of discharge: 11/06/19 Attending physician: SAM HERRERA 11/02/19 13:30 Consult to Physician [CONS] Urgent Comment: called office/ estefany Consulting Provider: RAF ROWLAND Physician Instructions: Reason For Exam: hand cellulitis Primary care physician: MOBILE DESIGNER Hospitalization Condition: Fair Disposition: DC-01 TO HOME OR SELFCARE Exam - Constitutional Vitals: Temp Pulse Resp BP Pulse Ox 99.4 F 62 18 121/65 99 11/06/19 07:32 11/06/19 13:26 11/06/19 13:38 11/06/19 13:26 11/06/19 13:26 Plan Activity: advance as tolerated Diet: low fat, low cholesterol, low salt Plan of Treatment: 1.Follow up with PCP in 1 week. 2.Follow up with Psychiatry in 1 week 3.Follow up with Dr. Evans, Id physician in 1 week. Follow up with: PRIMARY CARE,MD [Primary Care Provider] - 3-5 Days Prescriptions: Divalproex [Tomi RAI] 125 mg PO BID #60 tablet Doxycycline Hyclate 100 mg PO BID #10 tablet. cephALEXin [Keflex] 500 mg PO Q6H 5 Days #20 cap Doxepin [SINEquan] 10 mg PO QHS #30 capsule
== END 2019-11-06 16:20 | disposition home or self-care (01) | DRG 603 ==
LOC: ED 06:13 → OBSVTOIN 14:00 → 2B-ACE 14:00
PROVIDERS: ADMIT Internal Medicine; ATTEND Internal Medicine
DX: L03.113 Cellulitis of right upper limb (principal); I10 Essential (primary) hypertension; K21.9 Gastro-esophageal reflux disease without esophagitis; F20.9 Schizophrenia, unspecified; J45.909 Unspecified asthma, uncomplicated; K74.69 Other cirrhosis of liver; E66.9 Obesity, unspecified; F14.20 Cocaine dependence, uncomplicated; F19.94 Other psychoactive substance use, unspecified with psychoactive substance-induced mood disorder; R45.851 Suicidal ideations; Z87.891 Personal history of nicotine dependence; Z79.899 Other long term (current) drug therapy; Z82.49 Family history of ischemic heart disease and other diseases of the circulatory system; Z68.28 Body mass index [BMI] 28.0-28.9, adult
CPT/HCPCS: 36415; 80048; 80053; 80076; 80202; 80307; 80320; 81001; 82140; 82550; 82553; 83735; 83880; 85007; 85025; 85610; 85730; 87040; 87116; 96374; G0378; G0480; J2270; J2543; J3370; J7040

== ENCOUNTER 2019-11-09 17:11 | Emergency (ER) | payer MEDICARE, MEDICAID ==
--- NOTE | 2019-11-09 17:24 | Event Note ---
ED Screening Note ED Screening Note: new left foot pain, desires recheck of right index finger infection This initial assessment/diagnostic orders/clinical plan/treatment(s) is/are subject to change based on patients health status, clinical progression and re- assessment by fellow clinical providers in the ED. Further treatment and workup at subsequent clinical providers discretion. Patient/guardian urged not to elope from the ED as their condition may be serious if not clinically assessed and managed. Initial orders include: to treatment room
[2019-11-09 17:38] VITALS: BP 136/78
--- NOTE | 2019-11-09 19:04 | Emergency Department Report ---
HPI - General Chief Complaint: Extremity Injury, Upper Time Seen by Provider: 11/09/19 18:54 - HPI HPI: Room 40 The patient is a 64-year-old male present with chief complaint of left foot pain and improving infection to the right index finger. The patient was hospitalized for infection of his right index finger after lacerating it on a kitchen knife approximately 1 week ago. The patient was discharged home on Keflex and doxycycline which she states he has been taking. The patient states the swelling in his finger has gone down and the pain has improved. The patient states after he went home from the hospital he developed intermittent pain in his left foot. The patient states he also noticed a bruise to the top of his foot ED Past Medical Hx - Past Medical History Hx Hypertension: Yes Hx GERD: Yes Hx Liver Disease: Yes (cirrhosis, hx of hep C-treated clear as of 03/2019) Hx Psychiatric Treatment: Yes (schizophrenia) Additional medical history: HERNIA, hep c, asthma, htn, schizophrenia - Surgical History Past Surgical History?: No Additional Surgical History: Right arm surgery 2013, hernia repair - Family History Family history: no significant - Social History Smoking Status: Never Smoker Substance Use Type: None (Denies illicit drug use) - Medications Home Medications: Home Medications Medication Instructions Recorded Confirmed Last Taken Type Divalproex Dr Aleyda FERGUSON] 125 mg PO BID #60 tablet 11/04/19 Unknown Rx Doxepin [SINEquan] 10 mg PO QHS #30 capsule 11/04/[address] Aleyda Ferguson] 125 mg PO BID tablet 11/06/19 Unknown Rx Doxepin [SINEquan] 10 mg PO QHS capsule 11/06/19 Unknown Rx Doxycycline Hyclate 100 mg PO BID #10 tablet. 11/06/19 Unknown Rx Spironolactone [Aldactone] 25 mg PO DAILY tablet 11/06/19 Unknown Rx cephALEXin [Keflex] 500 mg PO Q6H 5 Days #20 cap 11/06/19 Unknown Rx nadoloL [Corgard] 20 mg PO QDAY tablet 11/06/19 Unknown Rx traMADoL [Ultram] 50 mg PO Q6HR PRN #10 tablet 11/09/19 Unknown Rx ED Review of Systems ROS: Stated complaint: LFT FOOT SWELLING/PAIN Other details as noted in HPI Constitutional: no symptoms reported Musculoskeletal: myalgia Physical Exam - Physical Exam Vital Signs: Vital Signs 11/09/19 17:22 Temperature 98.5 F Pulse Rate 65 Respiratory 20 Rate Blood Pressure 136/78 O2 Sat by Pulse 100 Oximetry Physical Exam: GENERAL: The patient is well-developed well-nourished male sitting on stretcher not appear to be in acute distress. [] HEENT: Normocephalic. Atraumatic. Extraocular motions are intact. Patient has moist mucous membranes. NECK: Supple. Trachea midline CHEST/LUNGS:There is no respiratory distress noted. HEART/CARDIOVASCULAR: Regular. There is no tachycardia. 2+ left DP SKIN: There is a circular bruise approximately 7 mm diameter to the dorsum of the left foot NEURO: The patient is awake, alert, and oriented. The patient is cooperative. The patient has normal speech MUSCULOSKELETAL: There is no evidence of acute injury. 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 Sodium 139 Potassium 4.6 Chloride 107.4 H Carbon Dioxide 20 L Anion Gap 16 BUN 6 L Creatinine 1.2 Estimated GFR > 60 BUN/Creatinine Ratio 5 Glucose 126 H Calcium 8.4 - Radiology Data Radiology results: report reviewed (Left foot x-ray), image reviewed (Left foot x-ray) interpreted by me: Left foot x-ray-no acute fracture [facility] [address] [place] [address] XRay Report Signed Patient: HERO NELSON MR#: [id number] : 1955 Acct:[id number] Age/Sex: 64 / M ADM Date: 11/09/19 Loc: ED Attending Dr: Order ing Physician: STEVE BHATIA MD Date of Service: 11/09/19 Procedure(s): XR foot 2V LT Accession Number(s): [id number] cc: STEVE BHATIA MD Fluoro Time In Minutes: EXAMINATION: Left foot radiograph, 2 views CLINICAL INFORMATION: Left foot pain and bruising COMPARISON: None. FINDINGS: There is no evidence of acute fracture or dislocation of the left foot. No focal soft tissue swelling is identified. Signer Name: Monique Gonzalez MD Signed: 11/09/2019 7:27 PM Workstation Name: [id number] Transcribed By: EB Dictated By: Monique Gonzalez MD Electronically Authenticated By: Monique Gonzalez MD Signed Date/Time: 11/09/191926 DD/ 25 TD/TT: - Differential Diagnosis Thrombocytopenia, bruise, occult fracture, neuropathy Critical care attestation.: If time is entered above; I have spent that time in minutes in the direct care of this critically ill patient, excluding procedure time. ED Disposition Clinical Impression: Left foot pain Disposition: DC-01 TO HOME OR SELFCARE Is pt being admited?: No Does the pt Need Aspirin: No Condition: Stable Additional Instructions: Return to the emergency department should you develop worsening symptoms, inability to tolerate food or liquids, high fever or any other concerns Prescriptions: traMADoL [Ultram] 50 mg PO Q6HR PRN #10 tablet PRN Reason: Pain Referrals: YIFAN GREGORY DPM [Staff Physician] - 3-5 Days (Dr. Gregory is a shop manager. Please follow-up with him for further evaluation) Time of Disposition: 19:51
--- NOTE | 2019-11-09 19:20 | Emergency Department Report ---
HPI - General Chief Complaint: Extremity Injury, Upper Time Seen by Provider: 11/09/19 18:54 ED Past Medical Hx - Past Medical History Hx Hypertension: Yes Hx Congestive Heart Failure: No Hx Diabetes: No Hx GERD: Yes Hx Liver Disease: Yes (cirrhosis, hx of hep C-treated clear as of 03/2019) Hx Psychiatric Treatment: Yes (schizophrenia) Hx Asthma: No Hx COPD: No Additional medical history: HERNIA, hep c, asthma, htn, schizophrenia - Surgical History Past Surgical History?: No Additional Surgical History: Right arm surgery 2013, hernia repair - Social History Smoking Status: Never Smoker Substance Use Type: None (Denies illicit drug use) - Medications Home Medications: Home Medications Medication Instructions Recorded Confirmed Last Taken Type Divalproex [Tomi FERGUSON] 125 mg PO BID #60 tablet 11/04/19 Unknown Rx Doxepin [SINEquan] 10 mg PO QHS #30 capsule 11/04/[address] Iam Ferguson] 125 mg PO BID tablet 11/06/19 Unknown Rx Doxepin [SINEquan] 10 mg PO QHS capsule 11/06/19 Unknown Rx Doxycycline Hyclate 100 mg PO BID #10 tablet.dr 11/06/19 Unknown Rx Spironolactone [Aldactone] 25 mg PO DAILY tablet 11/06/19 Unknown Rx cephALEXin [Keflex] 500 mg PO Q6H 5 Days #20 cap 11/06/19 Unknown Rx nadoloL [Corgard] 20 mg PO QDAY tablet 11/06/19 Unknown Rx ED Review of Systems ROS: Stated complaint: LFT FOOT SWELLING/PAIN Other details as noted in HPI Constitutional: no symptoms reported Musculoskeletal: myalgia Physical Exam - Physical Exam Vital Signs: Vital Signs 11/09/19 17:22 Temperature 98.5 F Pulse Rate 65 Respiratory 20 Rate Blood Pressure 136/78 O2 Sat by Pulse 100 Oximetry ED Course Vital Signs 11/09/19 17:22 Temperature 98.5 F Pulse Rate 65 Respiratory 20 Rate Blood Pressure 136/78 O2 Sat by Pulse 100 Oximetry Critical care attestation.: If time is entered above; I have spent that time in minutes in the direct care of this critically ill patient, excluding procedure time. ED Disposition Condition: Stable
[2019-11-09 19:31] LABS: Hematocrit 37.4 % (35.5-45.6); Hemoglobin 12.8 gm/dl (11.8-15.2); Mean Corpuscular HGB Conc 34 % (32-34); Mean Corpuscular Volume 104 fl (84-94); Platelet Count 108 K/mm3 (140-440); Red Blood Count 3.58 M/mm3 (3.65-5.03); Red Cell Distribution Width 14.9 % (13.2-15.2)
--- NOTE | 2019-11-09 19:31 | XRay Report ---
EXAMINATION: Left foot radiograph, 2 views CLINICAL INFORMATION: Left foot pain and bruising COMPARISON: None. FINDINGS: There is no evidence of acute fracture or dislocation of the left foot. No focal soft tissu e swelling is identified. Signer Name: Monique Gonzalez MD Signed: 11/09/2019 7:27 PM Workstation Name: [id number]
[2019-11-09 19:46] LABS: BUN/Creatinine Ratio 5; Blood Urea Nitrogen 6 mg/dL (9-20); Calcium 8.4 mg/dL (8.4-10.2); Hemolysis Index 6
[2019-11-09 21:13] LABS: Burr Cells 1+; Total Cells Counted 100
== END 2019-11-09 21:00 | disposition home or self-care (01) ==
LOC: ED 17:11
DX: S90.32XA Contusion of left foot, initial encounter (principal); M79.644 Pain in right finger(s); I10 Essential (primary) hypertension; K21.9 Gastro-esophageal reflux disease without esophagitis; F20.9 Schizophrenia, unspecified; J45.909 Unspecified asthma, uncomplicated; Z86.19 Personal history of other infectious and parasitic diseases; Z79.899 Other long term (current) drug therapy; W26.0XXA Contact with knife, initial encounter; Y93.89 Activity, other specified; Y92.89 Other specified places as the place of occurrence of the external cause; Y99.8 Other external cause status
CPT/HCPCS: 36415; 80048; 85007; 85025; 99283

== ENCOUNTER 2019-12-10 12:37 | Emergency (ER) | payer MEDICARE | END 2019-12-10 13:26 | disposition left against medical advice (07) | LOC: ED 12:37 | DX: M79.89 Other specified soft tissue disorders (principal); Z53.21 Procedure and treatment not carried out due to patient leaving prior to being seen by health care provider ==

== ENCOUNTER 2020-01-25 11:00 | Emergency (ER) | payer MEDICARE ==
[2020-01-25] MEDS ORDERED: SODIUM CHLORIDE 0.9% 1000 ML 1,000 ML IV ONE (11:50)
--- NOTE | 2020-01-25 12:03 | Emergency Department Report ---
<JOSE VARGHESE - Last Filed: 01/25/20 11:59> ED Psych HPI - General Chief Complaint: Medical Clearance Stated Complaint: TOOK TO MUCH CRACK Time Seen by Provider: 01/25/20 11:36 Source: patient Mode of arrival: Ambulatory Limitations: No Limitations - History of Present Illness Initial Comments: This is a 65-year-old male with a history of cirrhosis of liver who presents the ED today seeking help for drug use as a suicidal action. Patient states that for the past 3 months is gotten in a spiral downwards with crack and cocaine use. Patient states that each time he sings and gets money he is not using it for crack and cocaine. Patient states is gone to a point where he feels like he is getting suicidal and does not feel like he wants to kill himself but knows that eventually he will patient states that "if I go back out there I will not make it, which is why came in today to get help" patient states that he is see ing spirits were showing him things while he is on drugs. Patient seems like he is currently high. Patient states last use was last night patient states he was using all night and would have gone back this morning but this. Showed him something really bad and he felt like if he went back there this morning he might kill himself on drugs. Complaint: suicidal ideation Associated Psychiatric Symptoms: racing thoughts, visual hallucinations Quality: getting worse Worsens With: drug use Context: recent drug abuse Treatments Prior to Arrival: none If Self Harm: admits thoughts of, intentional overdose - Related Data Previous Rx's Medication Instructions Recorded Last Taken Type Divalproex [Dianne Ferguson] 125 mg PO BID #60 tablet 11/04/19 1 Day Ago Rx ~01/12/20 Doxepin [SINEquan] 10 mg PO QHS #30 capsule 11/04/19 1 Day Ago Rx ~01/12/[address] Ima Ferguson] 125 mg PO BID tablet 11/06/19 1 Day Ago Rx ~01/12/20 Doxepin [SINEquan] 10 mg PO QHS capsule 11/06/19 1 Day Ago Rx ~01/12/20 Spironolactone [Aldactone] 25 mg PO DAILY tablet 11/06/19 1 Day Ago Rx ~01/12/20 nadoloL [Corgard] 20 mg PO QDAY tablet 11/06/19 1 Day Ago Rx ~01/12/20 traMADoL [Ultram 50 MG tab] 50 mg PO Q6HR PRN #10 tablet 11/09/19 1 Day Ago Rx ~01/12/20 Meclizine [Antivert] 12.5 mg PO BID PRN #14 tablet 01/14/20 Unknown Rx Allergies Allergy/AdvReac Type Severity Reaction Status Date / Time No Known Allergies Allergy Verified 11/25/16 12:03 ED Review of Systems Comment: All other systems reviewed and negative ED Past Medical Hx - Past Medical History Previous Medical History?: Yes Hx Hypertension: Yes Hx Congestive Heart Failure: No Hx Diabetes: No Hx GERD: Yes Hx Liver Disease: Yes (cirrhosis, hx of hep C-treated clear as of 03/2019) Hx Psychiatric Treatment: Yes (schizophrenia) Hx Asthma: No Hx COPD: No Additional medical history: HERNIA, hep c, asthma, htn, schizophrenia - Surgical History Past Surgical History?: Yes Additional Surgical History: Right arm surgery 2013, hernia repair - Social History Smoking Status: Current Every Day Smoker Substance Use Type: Cocaine - Medications Home Medications: Home Medications Medication Instructions Recorded Confirmed Last Taken Type Divalproex Dr Iam Ferguson] 125 mg PO BID #60 tablet 11/04/19 01/13/20 1 Day Ago Rx ~01/12/20 Doxepin [SINEquan] 10 mg PO QHS #30 capsule 11/04/19 01/13/20 1 Day Ago Rx ~01/12/[address] Iam Ferguson] 125 mg PO BID tablet 11/06/19 01/13/20 1 Day Ago Rx ~01/12/20 Doxepin [SINEquan] 10 mg PO QHS capsule 11/06/19 01/13/20 1 Day Ago Rx ~01/12/20 Spironolactone [Aldactone] 25 mg PO DAILY tablet 11/06/19 01/13/20 1 Day Ago Rx ~01/12/20 nadoloL [Corgard] 20 mg PO QDAY tablet 11/06/19 01/13/20 1 Day Ago Rx ~01/12/20 traMADoL [Ultram 50 MG tab] 50 mg PO Q6HR PRN #10 tablet 11/09/19 01/13/20 1 Day Ago Rx ~01/12/20 Meclizine [Antivert] 12.5 mg PO BID PRN #14 tablet 01/14/20 Unknown Rx ED Physical Exam - General Limitations: No Limitations General appearance: alert, in no apparent distress - Head Head exam: Present: atraumatic, normocephalic - Eye Eye exam: Present: normal appearance - ENT ENT exam: Present: mucous membranes moist - Neck Neck exam: Present: normal inspection - Respiratory Respiratory exam: Present: normal lung sounds bilaterally. Absent: respiratory distress - Cardiovascular Cardiovascular Exam: Present: regular rate, normal rhythm. Absent: systolic murmur, diastolic murmur, rubs, gallop - GI/Abdominal GI/Abdominal exam: Present: soft, normal bowel sounds - Rectal Rectal exam: Present: deferred - Extremities Exam Extremities exam: Present: normal inspection - Back Exam Back exam: Present: normal inspection - Neurological Exam Neurological exam: Present: alert, oriented X3 - Psychiatric Psychiatric exam: Present: normal affect, normal mood - Skin Skin exam: Present: warm, dry, intact, normal color. Absent: rash ED Disposition Clinical Impression: Psychosis, Cocaine dependence, Suicidal thoughts Disposition: DC/TX-65 PSY HOSP/PSY UNIT Condition: Stable <CAPRI MORRELL - Last Filed: 01/25/20 17:22> ED Review of Systems ROS: Stated complaint: TOOK TO MUCH CRACK Other details as noted in HPI ED Course Vital Signs 01/25/20 12:11 Temperature 97.9 F Pulse Rate 74 Respiratory 18 Rate Blood Pressure 159/91 [Right] O2 Sat by Pulse 96 Oximetry ED Medical Decision Making - Lab Data Result diagrams: 01/25/20 12:16 01/25/20 12:16 - Medical Decision Making Patient is a 65-year-old gentleman who is a history of cocaine abuse who is here for psychosis. He was evaluated has been accepted to a psych facility and will be discharged to their care Critical care attestation.: If time is entered above; I have spent that time in minutes in the direct care of this critically ill patient, excluding procedure time. ED Disposition Is pt being admited?: No Does the pt Need Aspirin: No Time of Disposition: 17:22
[2020-01-25 12:20] LABS: Basophils # (Auto) 0.1 K/mm3 (0.0-0.1); Basophils % (Auto) 1.4 % (0.0-1.8); Eosinophils # (Auto) 0.1 K/mm3 (0.0-0.4); Eosinophils % (Auto) 2.5 % (0.0-4.3); Hematocrit 39.4 % (35.5-45.6); Hemoglobin 13.3 gm/dl (11.8-15.2); Lymphocytes % (Auto) 22.7 % (13.4-35.0); Mean Corpuscular HGB Conc 34 % (32-34); Mean Corpuscular Volume 104 fl (84-94); Monocytes # (Auto) 0.4 K/mm3 (0.0-0.8); Monocytes % (Auto) 9.3 % (0.0-7.3); Red Cell Distribution Width 14.7 % (13.2-15.2)
[2020-01-25 12:21] LABS: Platelet Count 88 K/mm3 (140-440)
[2020-01-25 12:44] LABS: Alanine Aminotransferase 28 units/L (7-56); Albumin 3.1 g/dL (3.9-5); BUN/Creatinine Ratio 10; Blood Urea Nitrogen 10 mg/dL (9-20); Calcium 8.6 mg/dL (8.4-10.2); Hemolysis Index 7
[2020-01-25 13:45] LABS: Bilirubin,Urine NEG (Negative); Blood,Urine NEG (Negative); Color,Urine Yellow (Yellow); Mucus,Urine FEW /HPF; Protein,Urine <15 mg/dL mg/dL (Negative)
[2020-01-25 13:54] LABS: Amphetamine Screen,Urine PRESUMPTIVE NEGATIVE; Benzodiazepines Screen,Urine PRESUMPTIVE NEGATIVE; Cannabinoid Screen,Urine PRESUMPTIVE NEGATIVE; Methadone Screen,Urine PRESUMPTIVE NEGATIVE; Opiate Screen,Urine PRESUMPTIVE NEGATIVE
[2020-01-25 14:25] LABS: Cocaine Screen,Urine PRESUMPTIVE POSITIVE
[2020-01-25 18:15] VITALS: BP 146/78
== END 2020-01-25 19:36 ==
LOC: ED 11:00
DX: R45.851 Suicidal ideations (principal); R44.1 Visual hallucinations; I10 Essential (primary) hypertension; K21.9 Gastro-esophageal reflux disease without esophagitis; F17.200 Nicotine dependence, unspecified, uncomplicated; Z98.890 Other specified postprocedural states; Z79.899 Other long term (current) drug therapy
CPT/HCPCS: 36415; 80053; 80307; 81001; 82140; 85025; 93005; 99285; J7030; 80320; G0480

== ENCOUNTER 2020-02-16 11:51 | Emergency (ER) | payer MEDICARE ==
[2020-02-16 12:37] LABS: Basophils % (Auto) 0.5 % (0.0-1.8); Eosinophils # (Auto) 0.1 K/mm3 (0.0-0.4); Eosinophils % (Auto) 1.7 % (0.0-4.3); Hematocrit 38.6 % (35.5-45.6); Hemoglobin 13.5 gm/dl (11.8-15.2); Lymphocytes % (Auto) 19.2 % (13.4-35.0); Mean Corpuscular HGB Conc 35 % (32-34); Mean Corpuscular Volume 102 fl (84-94); Monocytes # (Auto) 0.7 K/mm3 (0.0-0.8); Monocytes % (Auto) 13.4 % (0.0-7.3); Red Blood Count 3.79 M/mm3 (3.65-5.03); Red Cell Distribution Width 14.7 % (13.2-15.2)
[2020-02-16 12:39] LABS: Platelet Count 88 K/mm3 (140-440)
[2020-02-16 12:53] LABS: BUN/Creatinine Ratio 10; Blood Urea Nitrogen 11 mg/dL (9-20); Calcium 9.1 mg/dL (8.4-10.2); Hemolysis Index 12
[2020-02-16 13:23] LABS: Bilirubin,Urine NEG (Negative); Blood,Urine SM (Negative); Color,Urine Yellow (Yellow); Mucus,Urine FEW /HPF; Protein,Urine <15 mg/dL mg/dL (Negative); WBC,Urine < 1.0 /HPF (0.0-6.0)
[2020-02-16 13:31] LABS: Amphetamine Screen,Urine PRESUMPTIVE NEGATIVE; Benzodiazepines Screen,Urine PRESUMPTIVE NEGATIVE; Cannabinoid Screen,Urine PRESUMPTIVE NEGATIVE; Methadone Screen,Urine PRESUMPTIVE NEGATIVE; Opiate Screen,Urine PRESUMPTIVE NEGATIVE
[2020-02-16 13:43] LABS: Cocaine Screen,Urine PRESUMPTIVE POSITIVE
[2020-02-16 21:05] VITALS: BP 161/95
== END 2020-02-16 21:06 | disposition home or self-care (01) ==
LOC: ED 11:51
DX: F14.20 Cocaine dependence, uncomplicated (principal); F20.9 Schizophrenia, unspecified; I10 Essential (primary) hypertension; K21.9 Gastro-esophageal reflux disease without esophagitis; J45.909 Unspecified asthma, uncomplicated; F17.200 Nicotine dependence, unspecified, uncomplicated; F12.90 Cannabis use, unspecified, uncomplicated; Z98.890 Other specified postprocedural states; Z79.899 Other long term (current) drug therapy
CPT/HCPCS: 36415; 80048; 80307; 80320; 81001; 85025; G0480

== ENCOUNTER 2020-09-08 10:46 | Emergency (ER) | payer MEDICARE ==
[2020-09-08 12:37] VITALS: BP 124/74
--- NOTE | 2020-09-08 12:44 | Emergency Department Report ---
Blank Doc - Documentation Documentation: 65-year-old male that presents with urinary changes with abdominal pain and fl ank pain. This initial assessment/diagnostic orders/clinical plan/treatment(s) is/are subject to change based on patient's health status, clinical progression and re- assessment by fellow clinical providers in the ED. Further treatment and workup at subsequent clinical providers discretion. Patient/guardians urged not to elope from the ED as their condition may be serious if not clinically assessed and managed. Initial orders include: 1- Patient sent to [facility] for further evaluation and treatment 2- xrays
[2020-09-08 13:06] LABS: Hematocrit 40.4 % (35.5-45.6); Mean Corpuscular HGB Conc 35 % (32-34); Mean Corpuscular Volume 105 fl (84-94); Red Blood Count 3.86 M/mm3 (3.65-5.03); Red Cell Distribution Width 14.1 % (13.2-15.2)
[2020-09-08 13:09] LABS: Platelet Count 90 K/mm3 (140-440)
[2020-09-08 13:29] LABS: Alanine Aminotransferase 29 units/L (7-56); BUN/Creatinine Ratio 6; Blood Urea Nitrogen 5 mg/dL (9-20); Calcium 8.8 mg/dL (8.4-10.2); Hemolysis Index 4
[2020-09-08 13:48] LABS: Platelet Estimate Consistent w Auto; RBC Morphology Normal; Total Cells Counted 100
[2020-09-08 14:34] LABS: Bilirubin,Urine NEG (Negative); Blood,Urine NEG (Negative); Color,Urine Yellow (Yellow); Mucus,Urine FEW /HPF; Protein,Urine <15 mg/dL mg/dL (Negative); RBC,Urine < 1.0 /HPF (0.0-6.0); WBC,Urine < 1.0 /HPF (0.0-6.0)
--- NOTE | 2020-09-08 15:09 | Emergency Department Report ---
ED General Adult HPI - General Chief complaint: Urogenital-Male Stated complaint: FREQUENT URINATION Time Seen by Provider: 09/08/20 12:42 Source: patient Mode of arrival: Ambulatory Limitations: No Limitations - History of Present Illness Initial comments: 65-year-old male present with chief complaint of urinary frequency for the past 2 months. Denies dysuria, flank pain, abdominal pain, fevers, nausea, vomiting or any other symptoms. He does have a past medical history of cirrhosis and follows with [facility]. Severity is mild, no alleviating or exacerbating factors. He is concerned about possibly being prostate related. - Related Data Previous Rx's Medication Instructions Recorded Last Taken Type Divalproex Dr [Dianne Ferguson] 125 mg PO BID #60 tablet 11/04/19 1 Day Ago Rx ~01/12/20 Doxepin [SINEquan] 10 mg PO QHS #30 capsule 11/04/19 1 Day Ago Rx ~01/12/[address] [Dianne Ferguson] 125 mg PO BID tablet 11/06/19 1 Day Ago Rx ~01/12/20 Doxepin [SINEquan] 10 mg PO QHS capsule 11/06/19 1 Day Ago Rx ~01/12/20 Spironolactone [Aldactone] 25 mg PO DAILY tablet 11/06/19 1 Day Ago Rx ~01/12/20 nadoloL [Corgard] 20 mg PO QDAY tablet 11/06/19 1 Day Ago Rx ~01/12/20 traMADoL [Ultram 50 MG tab] 50 mg PO Q6HR PRN #10 tablet 11/09/19 1 Day Ago Rx ~01/12/20 Meclizine [Antivert] 12.5 mg PO BID PRN #14 tablet 01/14/20 Unknown Rx Allergies Allergy/AdvReac Type Severity Reaction Status Date / Time No Known Allergies Allergy Verified 11/25/16 12:03 ED Review of Systems ROS: Stated complaint: FREQUENT URINATION Other details as noted in HPI Comment: All other systems reviewed and negative Genitourinary: as per HPI ED Past Medical Hx - Past Medical History Previous Medical History?: Yes Hx Hypertension: Yes Hx Congestive Heart Failure: No Hx Diabetes: No Hx GERD: Yes Hx Liver Disease: Yes (cirrhosis, hx of hep C-treated clear as of 03/2019) Hx Psychiatric Treatment: Yes (schizophrenia) Hx Asthma: No Hx COPD: No Additional medical history: HERNIA, hep c, asthma, htn, schizophrenia - Surgical History Past Surgical History?: Yes Additional Surgical History: Right arm surgery 2014, hernia repair - Social History Smoking Status: Unknown if ever smoked Substance Use Type: None - Medications Home Medications: Home Medications Medication Instructions Recorded Confirmed Last Taken Type Divalproex Dr [Depakote Dr] 125 mg PO BID #60 tablet 11/04/19 01/13/20 1 Day Ago Rx ~01/12/20 Doxepin [SINEquan] 10 mg PO QHS #30 capsule 11/04/19 01/13/20 1 Day Ago Rx ~01/12/[address] [Depakote Dr] 125 mg PO BID tablet 11/06/19 01/13/20 1 Day Ago Rx ~01/12/20 Doxepin [SINEquan] 10 mg PO QHS capsule 11/06/19 01/13/20 1 Day Ago Rx ~01/12/20 Spironolactone [Aldactone] 25 mg PO DAILY tablet 11/06/19 01/13/20 1 Day Ago Rx ~01/12/20 nadoloL [Corgard] 20 mg PO QDAY tablet 11/06/19 01/13/20 1 Day Ago Rx ~01/12/20 traMADoL [Ultram 50 MG tab] 50 mg PO Q6HR PRN #10 tablet 11/09/19 01/13/20 1 Day Ago Rx ~01/12/20 Meclizine [Antivert] 12.5 mg PO BID PRN #14 tablet 01/14/20 Unknown Rx ED Physical Exam - General Limitations: No Limitations General appearance: alert, in no apparent distress - Head Head exam: Present: atraumatic, normocephalic - Eye Eye exam: Present: normal appearance - ENT ENT exam: Present: mucous membranes moist - Neck Neck exam: Present: normal inspection - Respiratory Respiratory exam: Present: normal lung sounds bilaterally. Absent: respiratory distress - Cardiovascular Cardiovascular Exam: Present: regular rate, normal rhythm. Absent: systolic murmur, diastolic murmur, rubs, gallop - GI/Abdominal GI/Abdominal exam: Present: soft, normal bowel sounds. Absent: distended, tenderness, guarding - Rectal Rectal exam: Present: deferred - Extremities Exam Extremities exam: Present: normal inspection - Back Exam Back exam: Present: normal inspection - Neurological Exam Neurological exam: Present: alert, oriented X3 - Psychiatric Psychiatric exam: Present: normal affect, normal mood - Skin Skin exam: Present: warm, dry, intact, normal color. Absent: rash ED Course Vital Signs 09/08/20 12:35 Temperature 97.9 F Pulse Rate 50 L Respiratory 18 Rate Blood Pressure 124/74 O2 Sat by Pulse 98 Oximetry ED Medical Decision Making - Lab Data Result diagrams: 09/08/20 12:50 09/08/20 12:50 - Medical Decision Making Patient presents with urinary frequency for the past 2 months. He is concerned that it may be because his prostate is enlarged. He has no abdominal pain or other systemic symptoms. His exam is benign. Labs and urinalysis were obtained and are unremarkable aside from chronic elevated LFTs almost unchanged from prior. His urinalysis is clear without evidence of infection. I discussed that it is possible that this could be due to BPH however would recommend PCP or urology follow-up for further treatment. - Differential Diagnosis BPH, UTI, hyperglycemia Critical care attestation.: If time is entered above; I have spent that time in minutes in the direct care of this critically ill patient, excluding procedure time. ED Disposition Clinical Impression: Urinary frequency Disposition: DC-01 TO HOME OR SELFCARE Is pt being admited?: No Condition: Stable Instructions: Urinary Frequency, Adult Referrals: PRIMARY CARE, [Primary Care Provider] - 3-5 Days MADHAV GAONA MD [Staff Physician] - 3-5 Days Time of Disposition: 15:08
== END 2020-09-08 16:05 | disposition home or self-care (01) ==
LOC: ED 10:46
DX: R35.0 Frequency of micturition (principal); I10 Essential (primary) hypertension; K21.9 Gastro-esophageal reflux disease without esophagitis; Z98.890 Other specified postprocedural states; Z79.899 Other long term (current) drug therapy
CPT/HCPCS: 36415; 80053; 81001; 82962; 83690; 85007; 85025

== ENCOUNTER 2020-12-25 12:03 | Emergency (ER) | payer MEDICARE ==
--- NOTE | 2020-12-25 13:43 | Event Note ---
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 Further treatment and workup at subsequent clinical providers discretion. Patient/guardian urged not to elope from the ED as their condition may be serious if not clinically assessed and managed. Initial orders include: Mental health clearance ED hold Security advised to want patient discussed with charge nurse Darling that patient needs mental health room [facility]
[2020-12-25 14:24] LABS: Basophils % (Auto) 0.7 % (0.0-1.8); Eosinophils # (Auto) 0.1 K/mm3 (0.0-0.4); Eosinophils % (Auto) 1.4 % (0.0-4.3); Hematocrit 41.1 % (35.5-45.6); Hemoglobin 14.1 gm/dl (11.8-15.2); Lymphocytes # (Auto) 0.9 K/mm3 (1.2-5.4); Lymphocytes % (Auto) 19.4 % (13.4-35.0); Mean Corpuscular HGB Conc 34 % (32-34); Mean Corpuscular Volume 105 fl (84-94); Monocytes # (Auto) 0.6 K/mm3 (0.0-0.8); Monocytes % (Auto) 12.4 % (0.0-7.3); Red Blood Count 3.91 M/mm3 (3.65-5.03); Red Cell Distribution Width 13.6 % (13.2-15.2)
[2020-12-25 14:33] LABS: Platelet Count 91 K/mm3 (140-440)
[2020-12-25 14:42] LABS: INR 1.47 (0.87-1.13)
[2020-12-25 14:43] LABS: Partial Thromboplastin Time 25.2 Sec. (24.2-36.6)
[2020-12-25 14:48] LABS: Alanine Aminotransferase 30 units/L (7-56); BUN/Creatinine Ratio 10; Blood Urea Nitrogen 11 mg/dL (9-20); Calcium 8.7 mg/dL (8.4-10.2); Hemolysis Index 3
--- NOTE | 2020-12-25 14:53 | Emergency Department Report ---
ED Psych HPI - General Chief Complaint: Medical Clearance Stated Complaint: DETOX/LIVER SICKNESS Time Seen by Provider: 12/25/20 13:39 Source: patient Mode of arrival: Ambulatory - History of Present Illness Initial Comments: 65-year-old male history of schizophrenia, liver cirrhosis, hep C, cocaine abuse, presents to ED stating that he is dehydrated and needs an IV. At triage, patient was hostile and cursing at staff. Patient reported that he had been smoking crack and reported homicidal ideations, stating that he wants to kill anyone. Patient is now denying any SI or HI. Complaint: other -: unknown Associated Psychiatric Symptoms: homicidal ideation Worsens With: drug use Context: recent drug abuse Treatments Prior to Arrival: none - Related Data Previous Rx's Medication Instructions Recorded Last Taken Type Divalproex [Dianne Ferguson] 125 mg PO BID #60 tablet 11/04/19 1 Day Ago Rx ~01/12/20 Doxepin [SINEquan] 10 mg PO QHS #30 capsule 11/04/19 1 Day Ago Rx ~01/12/20 Divalproex [Dianne Ferguson] 125 mg PO BID tablet 11/06/19 1 Day Ago Rx ~01/12/20 Doxepin [SINEquan] 10 mg PO QHS capsule 11/06/19 1 Day Ago Rx ~01/12/20 Spironolactone [Aldactone] 25 mg PO DAILY tablet 11/06/19 1 Day Ago Rx ~01/12/20 nadoloL [Corgard] 20 mg PO QDAY tablet 11/06/19 1 Day Ago Rx ~01/12/20 traMADoL [Ultram 50 MG tab] 50 mg PO Q6HR PRN #10 tablet 11/09/19 1 Day Ago Rx ~01/12/20 Meclizine [Antivert] 12.5 mg PO BID PRN #14 tablet 01/14/20 Unknown Rx Allergies Allergy/AdvReac Type Severity Reaction Status Date / Time No Known Allergies Allergy Verified 11/25/16 12:03 ED Review of Systems ROS: Stated complaint: DETOX/LIVER SICKNESS Other details as noted in HPI ED Past Medical Hx - Past Medical History Hx Hypertension: Yes Hx Congestive Heart Failure: No Hx Diabetes: No Hx GERD: Yes Hx Liver Disease: Yes (cirrhosis, hx of hep C-treated clear as of 03/2019) Hx Psychiatric Treatment: Yes (schizophrenia) Hx Asthma: No Hx COPD: No Additional medical history: HERNIA, hep c, asthma, htn, schizophrenia - Surgical History Additional Surgical History: Right arm surgery 2013, hernia repair - Social History Smoking Status: Unknown if ever smoked Substance Use Type: None - Medications Home Medications: Home Medications Medication Instructions Recorded Confirmed Last Taken Type Divalproex Dr [Dianne Ferguson] 125 mg PO BID #60 tablet 11/04/19 01/13/20 1 Day Ago Rx ~01/12/20 Doxepin [SINEquan] 10 mg PO QHS #30 capsule 11/04/19 01/13/20 1 Day Ago Rx ~01/12/[address] [Dianne Ferguson] 125 mg PO BID tablet 11/06/19 01/13/20 1 Day Ago Rx ~01/12/20 Doxepin [SINEquan] 10 mg PO QHS capsule 11/06/19 01/13/20 1 Day Ago Rx ~01/12/20 Spironolactone [Aldactone] 25 mg PO DAILY tablet 11/06/19 01/13/20 1 Day Ago Rx ~01/12/20 nadoloL [Corgard] 20 mg PO QDAY tablet 11/06/19 01/13/20 1 Day Ago Rx ~01/12/20 traMADoL [Ultram 50 MG tab] 50 mg PO Q6HR PRN #10 tablet 11/09/19 01/13/20 1 Day Ago Rx ~01/12/20 Meclizine [Antivert] 12.5 mg PO BID PRN #14 tablet 01/14/20 Unknown Rx ED Physical Exam - General Limitations: No Limitations ED Course Vital Signs 12/25/20 12/26/20 12:52 08:52 Temperature 98.2 F 98.6 F Pulse Rate 72 63 Respiratory 20 18 Rate Blood Pressure 144/93 Blood Pressure 147/78 [Right] O2 Sat by Pulse 98 100 Oximetry ED Medical Decision Making - Lab Data Result diagrams: 12/25/20 14:05 12/25/20 16:47 - Medical Decision Making 65 yo M presents to ED w/ cocaine abuse, HI, psychosis, placed on a 1013. Hx of liver cirrhosis. Total bili and LFT elevation is expected with this diagnosis and also with pt's past lab values. Ammonia level is normal. Potassium was initially 5.3, then 5.1 with re-draw. I suspect this is due to hemolysis as pt has normal renal function. Pt is medically clear for mental health evaluation.Will dispo per psych. Critical care attestation.: If time is entered above; I have spent that time in minutes in the direct care of this critically ill patient, excluding procedure time. ED Disposition Clinical Impression: Schizophrenia, Cocaine dependence Disposition: DC-01 TO HOME OR SELFCARE Is pt being admited?: No Condition: Stable Instructions: Stimulant Use Disorder-Cocaine, Schizophrenia Additional Instructions: Please follow-up with your primary care physician. Please follow-up with a psychiatrist or any of the outpatient referrals given to you by the psychiatric team. Please avoid any further cocaine or illicit drug use. Return to the emergency department with any worsening of your symptoms, thoughts of harming your self or others, or with any acute distress. Referrals: [facility] [Provider Group] - 3-5 Days [facility] [Outside] - 3-5 Days [facility] [Primary Care Provider] - 2-3 Days
[2020-12-25 17:57] LABS: Bilirubin,Urine NEG (Negative); Blood,Urine NEG (Negative); Color,Urine Yellow (Yellow); Protein,Urine <15 mg/dL mg/dL (Negative); WBC,Urine < 1.0 /HPF (0.0-6.0)
[2020-12-25 18:07] LABS: Amphetamine Screen,Urine Negative; Benzodiazepines Screen,Urine Negative; Cannabinoid Screen,Urine Negative; Methadone Screen,Urine Negative; Opiate Screen,Urine Negative
[2020-12-25 18:19] LABS: Cocaine Screen,Urine Positive
[2020-12-26 10:00] VITALS: BP 147/78
--- NOTE | 2020-12-26 11:03 | Consultation ---
History of Present Illness - Reason for Consult Consult date: 12/26/20 Reason for consult: MHE Requesting physician: HAMZAH HO - History of Present Psychiatric Illness Per ED Provider: 65-year-old male history of schizophrenia, liver cirrhosis, hep C, cocaine abuse, presents to ED stating that he is dehydrated and needs an IV. At triage, patient was hostile and cursing at staff. Patient reported that he had been smoking crack and reported homicidal ideations, stating that he wants to kill anyone. Patient is now denying any SI or HI. PSYCH HPI Patient is a 65-year-old single, disabled currently on SSI, -[place] male who resides with his partner with past psychiatric history of illicit substance use past medical history of liver cirrhosis who presented to the ED yesterday with chief complaint of having homicidal ideation from smoking crack. The patient reports feeling fine, patient reported that he has been going through a psycho depression in the only active do cocaine because it is a way for him to escape. He reported the people [place] formed some of that troubles by committee suicide but is not suicidal does not want to hurt himself, other people drinking and the drink does have to stop or whether or not aware of what is going on and he does not do that here, he endorses feeling guilty about the cocaine use but denies any auditory or visual hallucination at this moment. PAST PSYCHIATRIC HISTORY Diagnoses: History of substance use Suicide attempts or Self-harm behavior: None Prior psychiatric hospitalizations: Yes Substance Abuse history: Crack cocaine Previous psychiatric medications tried: Unknown Outpatient treatment: Unknown PAST MEDICAL HISTORY: Liver cirrhosis Family Psychiatric History: None reported or documented SOCIAL HISTORY Marital Status: Single Living Arrangements: With girlfriend Employment Status: [employer] Access to guns/weapons: Education: College dropout History of Abuse: None report Legal History: Yes REVIEW OF SYSTEMS Constitutional: Negative for weight loss ENT: Negative for stridor Respiratory: Negative for cough or hemoptysis All other systems reviewed and are negative MENTAL STATUS EXAMINATION General Appearance and Behavior: Age appropriate, good hygiene, wearing appropriate clothes, good eye contact, cooperative polite with questioning. Cooperation: Participating/engaged Psychomotor Behavior: unremarkable and within normal limits Mood: Good Affect and affective range: congruent with mood Thought Process: Fluent/Logical, Thought Content: Within reality, Speech: Normal volume, Regular rate and rhythm, Intellectual Functioning: Average Suicidal Ideation: Denies SI Homicidal Ideation: Denies HI Impulse Control: Unimpaired Insight and Judgment: Normal insight and judgment, Memory: Normal, Attention: Normal, Orientation: Alert, oriented, Diagnoses: Assessment and Plan - Psychiatric problem (1) Cocaine use disorder Current Visit: Yes Status: Acute Treatment Plan MEDICATIONS: Risks, benefits and alternatives of medications discussed with the patient, questions answered and consent obtained from patient. PSYCHOTHERAPY: Supportive psychotherapy provided MEDICAL: Per primary team DELIRIUM PRECAUTIONS: Please re-orient patient frequently, keep lights on during the day, and minimize benzodiazepines and opiates as these medications could worsen patient's confusion. 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 Case discussed with Dr. Burton who agrees with current disposition LEGAL STATUS: 1013 rescinded FOLLOW-UP: Will sign off Thank you for the consult. Please contact with any questions and/or concerns. Medications and Allergies Allergies Allergy/AdvReac Type Severity Reaction Status Date / Time No Known Allergies Allergy Verified 11/25/16 12:03 Home Medications Medication Instructions Recorded Confirmed Last Taken Type Divalproex [Dianne Ferguson] 125 mg PO BID #60 tablet 11/04/19 01/13/20 1 Day Ago Rx ~01/12/20 Doxepin [SINEquan] 10 mg PO QHS #30 capsule 11/04/19 01/13/20 1 Day Ago Rx ~01/12/[address] Iam Ferguson] 125 mg PO BID tablet 11/06/19 01/13/20 1 Day Ago Rx ~01/12/20 Doxepin [SINEquan] 10 mg PO QHS capsule 11/06/19 01/13/20 1 Day Ago Rx ~01/12/20 Spironolactone [Aldactone] 25 mg PO DAILY tablet 11/06/19 01/13/20 1 Day Ago Rx ~01/12/20 nadoloL [Corgard] 20 mg PO QDAY tablet 11/06/19 01/13/20 1 Day Ago Rx ~01/12/20 traMADoL [Ultram 50 MG tab] 50 mg PO Q6HR PRN #10 tablet 11/09/19 01/13/20 1 Day Ago Rx ~01/12/20 Meclizine [Antivert] 12.5 mg PO BID PRN #14 tablet 01/14/20 Unknown Rx Mental Status Exam - Vital signs Last Vital Signs Temp 98.6 F 12/26/20 08:52 Pulse 63 12/26/20 08:52 Resp 18 12/26/20 08:52 BP 147/78 12/26/20 08:52 Pulse Ox 100 12/26/20 08:52 Results Result Diagrams: 12/25/20 14:05 12/25/20 16:47 Abnormal lab results 12/25/20 12/25/20 12/25/20 Range/Units 14:05 14:05 14:05 MCV 105 H (84-94) fl MCH 36 H (28-32) pg Plt Count 91 L (140-440) K/mm3 [place] % (Auto) 12.4 H (0.0-7.3) % Lymph # (Auto) 0.9 L (1.2-5.4) K/mm3 PT 17.7 H (12.2-14.9) Sec. INR 1.47 H (0.87-1.13) Sodium 134 L (137-145) mmol/L Potassium 5.3 H (3.6-5.0) mmol/L Total Bilirubin 3.10 H (0.1-1.2) mg/dL AST 72 H (5-40) units/L Albumin 3.0 L (3.9-5) g/dL Salicylates (2.8-20.0) mg/dL Acetaminophen (10.0-30.0) ug/mL 12/25/20 12/25/20 12/25/20 Range/Units 14:05 14:05 16:47 MCV (84-94) fl MCH (28-32) pg Plt Count (140-440) K/mm3 [place] % (Auto) (0.0-7.3) % Lymph # (Auto) (1.2-5.4) K/mm3 PT (12.2-14.9) Sec. INR (0.87-1.13) Sodium (137-145) mmol/L Potassium 5.1 H (3.6-5.0) mmol/L Total Bilirubin (0.1-1.2) mg/dL AST (5-40) units/L Albumin (3.9-5) g/dL Salicylates < 0.3 L (2.8-20.0) mg/dL Acetaminophen 5.0 L (10.0-30.0) ug/mL All other labs normal. Assessment and Plan - Psychiatric problem (1) Cocaine use disorder Current Visit: Yes Status: Acute
== END 2020-12-26 17:17 | disposition home or self-care (01) ==
LOC: ED 12:03
DX: F20.9 Schizophrenia, unspecified (principal); Z20.822 Contact with and (suspected) exposure to COVID-19; F14.20 Cocaine dependence, uncomplicated; I10 Essential (primary) hypertension; K21.9 Gastro-esophageal reflux disease without esophagitis; Z98.890 Other specified postprocedural states; Z79.899 Other long term (current) drug therapy
CPT/HCPCS: 36415; 80053; 80307; 81001; 82140; 83690; 84132; 85025; 85610; 85730; 99284; U0003; 80320; G0480